=== PATIENT | female | born 1945 | race Caucasian/White ===

== ENCOUNTER 2025-01-05 16:50 | Inpatient (IN) | payer MEDICARE ==
[~2025-01-05] VITALS: Ht 162.6 cm; Wt 78.3 kg
--- NOTE | 2025-01-05 18:33 | DVH ---
Bilateral lower extremity venous duplex Clinical History: numbness/tingling swelling Comparison: None Findings: Duplex Doppler evaluation of the deep venous systems of both lower extremities from the common femora l veins to the popliteal veins including color Doppler and spectral/pulsed waveform analysis was perf ormed. RIGHT SIDE: The common femoral vein demonstrates appropriate compressibility and waveform variability. There is compressibility/patency of the great saphenous vein at the proximal thigh. The femoral vein demonstrates appropriate compressibility and waveform variability. The deep femoral vein demonstrates appropriate compressibility and waveform variability. The popliteal vein demonstrates appropriate compressibility and waveform variability. There is normal compressibility at the tibioperoneal trunk. LEFT SIDE: The common femoral vein demonstrates appropriate compressibility and waveform variability. There is compressibility/patency of the great saphenous vein at the proximal thigh. The femoral vein demonstrates appropriate compressibility and waveform variability. The deep femoral vein demonstrates appropriate compressibility and waveform variability. The popliteal vein demonstrates appropriate compressibility and waveform variability. There is normal compressibility at the tibioperoneal trunk. IMPRESSION: 1. No right or left femoropopliteal venous thrombosis. 2. If clinical concern/symptoms persist or worsen, short-interval follow-up study is suggested. 3. END IMPRESSION:
[2025-01-05 18:35] LABS: Basophils # (auto) 0 10 ^3/uL (0-0.2); Basophils % (auto) 1.3 % (0.0-2.0); Eosinophils # (auto) 0.4 10 ^3/uL (0-0.8); Eosinophils % (auto) 14.2 % (0.0-7.0); Hematocrit 36.1 % (36.0-46.0); Hemoglobin 12.2 g/dL (12.2-16.2); Lymphocytes # (auto) 1.2 10 ^3/uL (0.4-5.4); Lymphocytes % (auto) 42.3 % (10.0-50.0); Mean Corpuscular Hemoglobin 31.9 pg (28.0-32.0); Mean Corpuscular Hgb Conc. 33.7 g/dL (32.0-36.0); Mean Corpuscular Volume 94.7 fL (80.0-100.0); Monocytes # (auto) 0.4 10 ^3/uL (0-1.3); Monocytes % (auto) 14.2 % (0.0-12.0); Neutrophils # (auto) 0.8 10 ^3/uL (1.6-8.6); Nucleated Red Blood Cells % 0.1 %; Platelet Count (auto) 254 10^3/uL (140-450); Red Blood Cells 3.81 10^6/uL (4.0-5.20); Red Cell Distribution Width 14.4 % (11.8-14.3); White Blood Cell 2.9 10^3/uL (4.4-10.8)
--- NOTE | 2025-01-05 18:47 | ED.PDOC ---
Musculoskeletal HPI Comments HPI: 79y F who presents to the ED for chief complaint of extremity pain. - pt states she has been having bilateral lower extremity pain and numbness for the past 1 month - pt states she had MRI of spine on 10/16/24 and states she was dx with spinal fracture -pt states she has been seeing pain specialist and states he has received pain shot in spine 2 weeks prior with noted another pain shot in extremities - pt states she also had slip and fall on L knee 1 week prior and since, she has been having increasing pain when attempting to ambulate with associated numbness - pt states she came to the ED due to increasing pain despite pain management recommendations and medications prescribed - pt rates her pain 04/26, with noted exacerbation of pain while ambulating and no relieving factors - pt otherwise denies any other symptoms at this time Past Medical history: spine fracture Past Surgical history: R leg Medications: unknown Allergies: denies Social History: endorses ETOH, denies tobacco use, denies drug use : HPI: Poor Historian. REVIEW OF SYSTEMS: CONSTITUTIONAL: Denies acute: fever, diaphoresis, chills, generalized weakness. HEAD: Denies acute: headache, photophobia Eyes: Denies acute: Double vision, vision loss, eye pain, eye discharge. EARS: Denies acute: tinnitus, hearing loss, ear discharge, ear pain, THROAT: Denies acute: sore throat, swelling, difficulty swallowing , pain with swallowing, change in voice. NECK: Denies acute: neck pain, neck swelling, stiff neck. HEART: Denies acute : chest pain, palpitations, LUNGS: Denies acute: SOB, wheezing, cough, hemoptysis ABDOMEN: Denies acute: abdominal pain, Nausea, Vomiting, diarrhea, melena , hematemesis, hematochezia SKIN: Denies acute: rash, redness, lesions, itchiness. EXTREMITIES: Denies acute: calf pain, , , weakness, denies pain in extremity. Neuro: Denies acute: focal neurological deficit, motor or sensory focal neurological deficit, tremors, seizure like activity, confusion, dizziness, change in mental status, loss of bowel or bladder function, cauda equina like symptoms. : Denies acute: dysuria, hematuria, flank pain, increase in urinary frequency. PSYCH: Denies acute: hallucination, suicidal ideation, homicidal ideation. FEMALE: Denies acute: abnormal vaginal bleeding, foul odor, unusual discharge. PHYSICAL EXAM: General: ----no----acute distress, awake and alert. Head: normocephalic, atraumatic. Neck: supple, trachea is midline, no swelling. Throat: Normal phonation. Eyes:, no erythema, no purulent discharge, no proptosis, no icterus. Heart: regular rate, regular rhythm, no significant murmur appreciated. Lungs: no apparent respiratory distress, Able to speak in full sentences. No wheezing, no rhonchi, no crackles. No stridors Clear to auscultation bilaterally. Abdomen: non tender to palpation, non distended, soft, no guarding, no rebound, + bowel sounds. Neuro: Awake, Alert, oriented to name, self, situation, follows commands GCS=15. Speech is normal. Skin: no petechia, no purpura, no cyanosis, non-pale, not jaundice. Lower extremities: --trace bilateral- Pitting edema no deformity, no focal swelling, no calf TTP. Makes eye contact. moves all four extremities. Face: no apparent facial droop. Pedal pulses are palpable. ED COURSE: Chief Complaint: Lower Extremity Time Seen by MD: 18:30 Primary Care Provider: DAVID Reviewed Notes: Medications, Allergies Allergies: Coded Allergies: NO KNOWN ALLERGIES (Unverified , 01/05/25) Information Source: Patient, Relative Mode of Arrival: Wheelchair Was a procedure done? Was a procedure done?: No Differential Diagnosis EXT Differential Diagnosis: Other Other Differential Diagnosis DDX included but not limited to Cauda Equina syndrome, lumbar radiculopathy, arthritis, disk herniation, sciatica, muscle strain, epidural abscess, transverse myelitis. Cord compression, spinal foraminal stenosis, spinal fractures, spondylosis, central canal stenosis, trauma, muscle sprain/strain, shingles, arthritis, Gu[place], neoplasm. X-Ray, Labs, Meds, VS Vital Signs Date Time Temp Pulse Resp B/P (MAP) Pulse Ox O2 Delivery O2 Flow Rate FiO2 01/05/25 17:17 97.0 85 17 129/55 (79) 96 97.0 Lab Test 01/05/25 18:56 01/05/25 18:00 Range/Units Troponin I High Sensitivity < 3 L < 3 L </=34 ng/L White Blood Count 2.9 L 4.4-10.8 10^3/uL Red Blood Count 3.81 L 4.0-5.20 10^6/uL Hemoglobin 12.2 12.2-16.2 g/dL Hematocrit 36.1 36.0-46.0 % Mean Corpuscular Volume 94.7 80.0-100.0 fL Mean Corpuscular Hemoglobin 31.9 28.0-32.0 pg Mean Corpuscular Hemoglobin Concent 33.7 32.0-36.0 g/dL Red Cell Distribution Width 14.4 H 11.8-14.3 % Platelet Count 254 140-450 10^3/uL Mean Platelet Volume 7.7 6.9-10.8 fL Neutrophils (%) (Auto) 28.0 L 37.0-80.0 % Lymphocytes (%) (Auto) 42.3 10.0-50.0 % Monocytes (%) (Auto) 14.2 H 0.0-12.0 % Eosinophils (%) (Auto) 14.2 H 0.0-7.0 % Basophils (%) (Auto) 1.3 0.0-2.0 % Neutrophils # (Auto) 0.8 L 1.6-8.6 10 ^3/uL Lymphocytes # (Auto) 1.2 0.4-5.4 10 ^3/uL Monocytes # (Auto) 0.4 0-1.3 10 ^3/uL Eosinophils # (Auto) 0.4 0-0.8 10 ^3/uL Basophils # (Auto) 0 0-0.2 10 ^3/uL Nucleated Red Blood Cells 0.1 % Sodium Level 139 136-145 mmol/L Potassium Level 4.1 3.5-5.1 mmol/L Chloride Level 102 98-107 mmol/L Carbon Dioxide Level 26 20-31 mmol/L Anion Gap 11 5-15 Blood Urea Nitrogen 10 9-23 mg/dL Creatinine 0.66 0.550-1.02 mg/dL Glomerular Filtration Rate Calc 88 >90 mL/min BUN/Creatinine Ratio 15.2 10.0-20.0 Serum Glucose 85 74-106 mg/dL Calcium Level 9.8 8.7-10.4 mg/dL Magnesium Level 2.2 1.6-2.6 mg/dL Total Bilirubin 0.6 0.2-1.0 mg/dL Aspartate Amino Transferase (AST) 9 L 13-40 U/L Alanine Aminotransferase (ALT) 11 7-40 U/L Alkaline Phosphatase 83 46-116 U/L B-Type Natriuretic Peptide 37.90 0-100 pg/mL Total Protein 6.3 5.7-8.2 g/dL Albumin 4.3 3.2-4.8 g/dL [place] [id number] Ph: [phone] DIAGNOSTIC IMAGING Diagnostic Imaging Report : [id number] Signed PATIENT: YISSEL JEFFCCT: [id number] UNIT: [id number] : 1945 LOC: ER ROOM / BED: / AGE / SEX: 79 / F ADM STATUS: REG ER SERVICE [id number] ORDERING PHYSICIAN: MOHIT LY DO PROCEDURE(s): BLDVT - BiLat Lower DVT REASON: numbness/tingling swelling ORDER NUMBER(s): [id number], ACCESSION NUMBER(s): [id number] Bilateral lower extremity venous duplex Clinical History: numbness/tingling swelling Comparison: None Findings: Duplex Doppler evaluation of the deep venous systems of both lower extremities from the common femoral veins to the popliteal veins including color Doppler and spectral/pulsed waveform analysis was performed. RIGHT SIDE: The common femoral vein demonstrates appropriate compressibility and waveform variability. There is compressibility/patency of the great saphenous vein at the proximal thigh. The femoral vein demonstrates appropriate compressibility and waveform variability. The deep femoral vein demonstrates appropriate compressibility and waveform variability. The popliteal vein demonstrates appropriate compressibility and waveform variability. There is normal compressibility at the tibioperoneal trunk. LEFT SIDE: The common femoral vein demonstrates appropriate compressibility and waveform variability. There is compressibility/patency of the great saphenous vein at the proximal thigh. The femoral vein demonstrates appropriate compressibility and waveform variability. The deep femoral vein demonstrates appropriate compressibility and waveform variability. The popliteal vein demonstrates appropriate compressibility and waveform variability. There is normal compressibility at the tibioperoneal trunk. IMPRESSION: 1. No right or left femoropopliteal venous thrombosis. 2. If clinical concern/symptoms persist or worsen, short-interval follow-up study is suggested. 3. END IMPRESSION: ATED BY: ASHTYN GUTHRIE MD DICTATED DATE/TIME: 01/05/251830 SIGNED BY: ASHTYN GUTHRIE MD SIGNED DATE/TIME: 01/05/251830 CC: [place] [address] Ph: [phone] DIAGNOSTIC IMAGING Diagnostic Imaging Report : [id number] Signed PATIENT: YISSEL JEFFCCT: [id number] UNIT: [id number] : 1945 LOC: ER ROOM / BED: / AGE / SEX: 79 / F ADM STATUS: REG ER SERVICE 58 ORDERING PHYSICIAN: MOHIT LY DO PROCEDURE(s): LS2CT - LS SPINE WO CONTRAST REASON: pain, fall ORDER NUMBER(s): [id number], ACCESSION NUMBER(s): [id number] EXAM: CT LS SPINE WO CONTRAST INDICATION: pain, fall TECHNIQUE: Axial images of the lumbar spine have been obtained along with coronal and sagittal reformatted images. CT scans at this facility use dose modulation, iterative reconstruction, and/or weight based dosing when appropriate to reduce radiation dose to as low as reasonably achievable. COMPARISON: None FINDINGS: ANATOMY: Five lumbar-type vertebral bodies are present. The most inferior well- formed disc space will be referred to as L5-S1 for purposes of numbering in this report. VERTEBRAL BODIES: Near vertebra plana anterior to centrally with slight 4 mm posterior superior endplate retropulsion of T12 liking contributing to at least mild spinal canal narrowing at this level. Opposing endplate degenerative change centered at L3-4. SPINAL CANAL: No spinal canal narrowing. INTERVERTEBRAL DISCS: Small posterior disc osteophyte complex at L3-4 /circumferential disc bulge with bilateral inferior foraminal extension. Suspected severe left L3-4 foraminal narrowing with posterior disc osteophyte complex in the left lateral recess FACETS: Multilevel mild to moderate facet arthropathy. OTHER: Large sliding hiatal hernia. trace left perinephric edema. IMPRESSION: 1. Near vertebra plana anterior to centrally with slight 4 mm posterior superior endplate retropulsion of T12 liking contributing to at least mild spinal canal narrowing at this level. 2. If neurological symptoms, recommend MRI. 3. No CT evidence of an acute fracture. ATED BY: CHOLO BARRON MD DICTATED DATE/TIME: 01/05/251951 SIGNED BY: CHOLO BARRON MD SIGNED DATE/TIME: 01/05/251951 CC: Time of 1ST Reevaluation: 20:25 (Discussed with Dr. Mack who sent the patient to the ER for further evaluation. He recommends admission to the hospital service for possible MRI in the morning and possible spine consultation.) Reevaluation 1ST: Unchanged Patient Education/Counseling: Diagnosis, Treatment Family Education/Counseling: Diagnosis, Treatment Comments Patient presented with the above HPI.---bilateral leg numbness tingling---workup was initiated. patient was found with the above mentioned diagnosis. the following medications were ordered: please refer to order lists of meds and tests obtained by myself Dr. Ly. Patient ED course and VS have been stabilized. Patient has been reassessed in the ED and remained in a stable condition. Pertinent incidental findings were discussed with the patient and/or family. Patient/family voices understanding and is agreeable with plan. Patient has been observed in the ED adequate length of time to insure improvement/stability. Escalation of care considered: Consideration of escalation to observation or admission Case discussed with Dr. Mack. Patient was ADMITTED to the medicine team for further evaluation and treatment of their presentation. All the reports of any imaging studies that were ordered by myself were reviewed by myself. Departure 1 Departure Time of Disposition: 20:26 Impression: Primary Impression: Bilateral leg numbness Additional Impression: Spinal stenosis Disposition: ADMITTED INPATIENT Admit to: Tele Condition: Guarded Discharged With: Self Critical Care Note Critical Care Time?: No I personally scribed for MOHIT LY DO ([email or web address]) on 01/05/25 at 18:47. Electronically submitted by Alka Wick ([facility]). I personally scribed for MOHIT LY DO ([email or web address]) on 01/05/25 at 19:06. Electronically submitted by [facility]ka Wick ([facility] I personally scribed for MOHIT LY DO ([facility]) on 01/05/25 at 20:32. Electronically submitted by Alka Wick ([facility]). MOHIT LY DO January 05, 2025 18:47
[2025-01-05 18:52] LABS: Alanine Aminotransferase 11 U/L (7-40); Albumin 4.3 g/dL (3.2-4.8); Alkaline Phosphatase 83 U/L (46-116); Anion Gap 11 (5-15); BUN/Creatinine Ratio 15.2 (10.0-20.0); Blood Urea Nitrogen 10 mg/dL (9-23); Calcium 9.8 mg/dL (8.7-10.4); Carbon Dioxide 26 mmol/L (20-31); Chloride 102 mmol/L (98-107); Glucose 85 mg/dL (74-106); Magnesium 2.2 mg/dL (1.6-2.6); Potassium 4.1 mmol/L (3.5-5.1); Sodium 139 mmol/L (136-145); Total Protein 6.3 g/dL (5.7-8.2)
[2025-01-05 18:53] LABS: Bilirubin, Total 0.6 mg/dL (0.2-1.0)
[2025-01-05 18:56] LABS: Aspartate Aminotransferase 9 U/L (13-40)
--- NOTE | 2025-01-05 19:54 | DVH ---
EXAM: CT LS SPINE WO CONTRAST INDICATION: pain, fall TECHNIQUE: Axial images of the lumbar spine have been obtained along with coronal and sagittal reform atted images. CT scans at this facility use dose modulation, iterative reconstruction, and/or weight based dosing when appropriate to reduce radiation dose to as low as reasonably achievable. COMPARISON: None FINDINGS: ANATOMY: Five lumbar-type vertebral bodies are present. The most inferior well-formed disc space will be referred to as L5-S1 for purposes of numbering in this report. VERTEBRAL BODIES: Near vertebra plana anterior to centrally with slight 4 mm posterior superior endpl ate retropulsion of T12 liking contributing to at least mild spinal canal narrowing at this level. Op posing endplate degenerative change centered at L3-4. SPINAL CANAL: No spinal canal narrowing. INTERVERTEBRAL DISCS: Small posterior disc osteophyte complex at L3-4 /circumferential disc bulge wit h bilateral inferior foraminal extension. Suspected severe left L3-4 foraminal narrowing with posteri or disc osteophyte complex in the left lateral recess FACETS: Multilevel mild to moderate facet arthropathy. OTHER: Large sliding hiatal hernia. trace left perinephric edema. IMPRESSION: 1. Near vertebra plana anterior to centrally with slight 4 mm posterior superior endplate retropulsio n of T12 liking contributing to at least mild spinal canal narrowing at this level. 2. If neurological symptoms, recommend MRI. 3. No CT evidence of an acute fracture.
[2025-01-05] MEDS ORDERED: HYDROcodone-ACET 5/325MG TAB PO PRN (21:30)
[2025-01-05] MEDS ORDERED: ACETAMINOPHEN 325 MG TAB PO PRN (21:30)
[2025-01-05] MEDS ORDERED: MORPHINE SULFATE INJ 2 MG/ml SYRG IV PRN (21:30)
[2025-01-05] MEDS: DexAMETHasone SOD PHOS 10MG/1ML VIAL INJ IV ONE (22:42)
[2025-01-05 22:52] VITALS: BP 128/70; PULSE 56; RESP 16; TEMP 97; O2SAT 98
[2025-01-05 23:13] VITALS: RESP 16; O2SAT 90
[2025-01-06] VITALS (7 sets, daily range): BP systolic 119–138; BP diastolic 55–78; PULSE 58–79; RESP 16–18; TEMP 96.9–99; O2SAT 97–98
[2025-01-06 04:32] LABS: Hematocrit 38.7 % (36.0-46.0); Hemoglobin 12.8 g/dL (12.2-16.2); Mean Corpuscular Hemoglobin 31.4 pg (28.0-32.0); Mean Corpuscular Hgb Conc. 32.9 g/dL (32.0-36.0); Mean Corpuscular Volume 95.4 fL (80.0-100.0); Platelet Count (auto) 232 10^3/uL (140-450); Red Blood Cells 4.06 10^6/uL (4.0-5.20); Red Cell Distribution Width 14.5 % (11.8-14.3)
[2025-01-06 04:40] LABS: Albumin 4.4 g/dL (3.2-4.8); Alkaline Phosphatase 81 U/L (46-116); Anion Gap 8 (5-15); BUN/Creatinine Ratio 11.1 (10.0-20.0); Bilirubin, Total 0.7 mg/dL (0.2-1.0); Calcium 9.3 mg/dL (8.7-10.4); Carbon Dioxide 26 mmol/L (20-31); Chloride 106 mmol/L (98-107); Potassium 4.1 mmol/L (3.5-5.1); Sodium 140 mmol/L (136-145); Total Protein 6.8 g/dL (5.7-8.2)
[2025-01-06 04:42] LABS: Alanine Aminotransferase < 9 U/L (7-40); Blood Urea Nitrogen 7 mg/dL (9-23); Glucose 140 mg/dL (74-106)
[2025-01-06 04:43] LABS: Aspartate Aminotransferase < 8 U/L (13-40)
[2025-01-06 04:47] LABS: INR 1.08 (0.9-1.15); Partial Thromboplastin Time 28.5 SEC (24.5-34.5); Prothrombin Time 11.4 sec (9.3-11.8)
[2025-01-06 04:51] LABS: White Blood Cell 1.8 10^3/uL (4.4-10.8)
[2025-01-06 04:54] LABS: Band Neutrophils % (manual) 0; Basophils % (manual) 0 (0.0-2.0); Blast Cells 0; Eosinophils % (manual) 0 (0-7); Metamyelocytes % 0; Myelocytes % 0; Promyelocytes % 0; Reactive Lymphocytes 0
--- NOTE | 2025-01-06 05:16 | DVHHP2 ---
History of Present Illness History of Present Illness 79-year-old female with a past medical history of hyperlipidemia and prior spinal trauma presents with progressive bilateral lower extremity weakness, numbness, tingling, and exacerbation of lower back pain. The patient reports a fall in 2003, following which she was told she had a spinal fracture, but she is unclear on the details. She underwent an MRI on October 2024, which reportedly confirmed this fracture. Since then, she has followed up with her PCP and pain specialist, who recommended possible disc infiltrations but no surgical intervention at that time. One week ago, the patient had another fall onto her knees. Since then, she reports worsening weakness, with the inability to stand without her legs "giving out." Over the past 2 days, this weakness has progressed to the point where she cannot ambulate at all. She also reports bilateral leg numbness and tingling, as well as worsening lower back pain, especially when attempting to walk. Additionally, she reports bilateral leg swelling for the past several days She has a remote history of right leg surgery, though she is unsure of the exact procedure. PAST MEDICAL HISTORY: Hyperlipidemia Spinal fracture (2003) PAST SURGICAL HISTORY: Right leg surgery MEDICATIONS: atorvastatin, oxybutynin ALLERGIES: NKDA Review of Systems Review of Systems REVIEW OF SYSTEMS: Constitutional: No fever or chills reported Neurologic: Positive for bilateral leg weakness, numbness, and tingling Musculoskeletal: Positive for back pain and recent fall Cardiovascular: Reports new onset bilateral lower extremity swelling GI/: Negative Respiratory: Negative Allergies: Coded Allergies: NO KNOWN ALLERGIES (Unverified , 01/05/25) Medications Current Medications Medications Dose Ordered Sig/Wendy Route Start Time Stop Time Status Last Admin Dose Admin Acetaminophen 650 mg Q6HP PRN PO 01/05/25 21:30 Acetaminophen/ Hydrocodone Bitart 1 tab Q4HP PRN PO 01/05/25 21:30 Morphine Sulfate 2 mg Q4HPRN PRN IV 01/05/25 21:30 Enoxaparin Sodium 40 mg DAILY SC 01/06/25 10:00 Prednisone 60 mg DAILY PO 01/06/25 10:00 Exam Vital Signs Vital Signs Date Time Temp Pulse Resp B/P (MAP) Pulse Ox O2 Delivery O2 Flow Rate FiO2 01/06/25 01:00 98.0 58 16 133/55 (81) 98 98.0 01/05/25 23:13 Room Air* 0 21 Exam PHYSICAL EXAM: General: Elderly female, alert and oriented, in mild distress due to pain. HEENT: Normocephalic, atraumatic. Neck: Supple, no lymphadenopathy. Lungs: Clear to auscultation bilaterally. Cardiovascular: Regular rate and rhythm. No murmur, gallop, or rub. 12+ pitting edema in bilateral lower extremities. Abdomen: Soft, nontender, nondistended. Extremities: No gross deformities. Bilateral 12+ pitting edema in lower extremi ties. Neurological: Motor: Strength in bilateral lower extremities 2/5 Reflexes: Symmetric and preserved Sensation: Decreased sensation to light touch along L4-L5 dermatomes bilaterally Gait: Unable to ambulate due to leg weakness No saddle anesthesia reported. No bowel or bladder incontinence noted. Labs/Xrays Labs Test 01/06/25 04:08 01/05/25 18:56 01/05/25 18:00 Range/Units Sodium Level 140 136-145 mmol/L Potassium Level 4.1 3.5-5.1 mmol/L Chloride Level 106 98-107 mmol/L Carbon Dioxide Level 26 20-31 mmol/L Anion Gap 8 5-15 Blood Urea Nitrogen 7 L 9-23 mg/dL Creatinine 0.63 0.550-1.02 mg/dL Glomerular Filtration Rate Calc 89 >90 mL/min BUN/Creatinine Ratio 11.1 10.0-20.0 Serum Glucose 140 H 74-106 mg/dL Hemoglobin A1c 5.0 <5.7 % A1C Calcium Level 9.3 8.7-10.4 mg/dL Total Bilirubin 0.7 0.2-1.0 mg/dL Aspartate Amino Transferase (AST) < 8 L 13-40 U/L Alanine Aminotransferase (ALT) < 9 7-40 U/L Alkaline Phosphatase 81 46-116 U/L Total Protein 6.8 5.7-8.2 g/dL Albumin 4.4 3.2-4.8 g/dL Troponin I High Sensitivity < 3 L </=34 ng/L Eosinophils (%) (Auto) 14.2 H 0.0-7.0 % Eosinophils # (Auto) 0.4 0-0.8 10 ^3/uL Basophils # (Auto) 0 0-0.2 10 ^3/uL Nucleated Red Blood Cells 0.1 % Magnesium Level 2.2 1.6-2.6 mg/dL B-Type Natriuretic Peptide 37.90 0-100 pg/mL Assessment/Plan Assessment/Plan #Mild spinal canal narrowing at T12 #Small posterior disc osteophyte complex at L3-4 #circumferential disc bulge with bilateral inferior foraminal extension l3 l4. #Suspected severe left L3-4 foraminal narrowing with posterior disc osteophyte complex in the left lateral recess #Sp mechanical fall #DVT ruled out #Dyslipidemia #Leukopenia Admit NPO Med/surg Spine surgery consult Lumbar MRI Dexamethasone 6 mg IV daily Lovenox 40 mg SC Possible preop labs and images Case discussed with Dr Holder Full code Plan discussed with: Patient, Other My Orders Orders - CECIL VALENTE RESIDENT Procedure Category Date Status Time Admit ADMIT 01/05/25 Transmitted 21:21 Code Status CODE 01/05/25 Transmitted 21:21 Vital Signs RAHEL 01/05/25 In Process 21:21 Review Orders With RAHEL 01/05/25 In Process Adm. 21:21 Regular Diet DIET 01/06/25 Transmitted Breakfast Acetaminophen Tablet PHA 01/05/25 In Process (Tylenol Tablet) 21:30 Notify Of Changes RAHEL 01/05/25 In Process From Base 21:21 Advance Directive RAHEL 01/05/25 In Process 21:21 Chest Two Views XY 01/06/25 Logged Routine 04:00 Echo 2d Mode Cardiac US 01/05/25 Logged DOP 21:21 Patient Condition ORDERS 01/05/25 Transmitted 21:21 Allergies RAHEL 01/05/25 In Process 21:21 Hydrocodone-Acet PHA 01/05/25 In Process 5/325mg Tab ([place] 21:30 Morphine Sulfate PHA 01/05/25 In Process Injection 21:30 Enoxaparin Sodium PHA 01/06/25 In Process (Lovenox) 10:[address] Uriel CONS 01/05/25 Transmitted [place](Spine) 21:21 Npo (Nothing By DIET 01/06/25 Transmitted Mouth) Diet Breakfast Lumbar With Contrast MRI 01/05/25 Logged 21:25 Prednisone Tablet PHA 01/06/25 In Process 10:00 Lumbar Spine Wo MRI 01/05/25 Logged Contrast 22:37 Drug Screen LAB 01/06/25 Logged 00:43 Urinalysis LAB 01/07/25 Verified 04:00 Complete Blood Count LAB 01/06/25 In Process 03:45 Thyroid Stimulating LAB 01/06/25 In Process Hormone 03:45 PTPTT LAB 01/06/25 In Process 03:45 Date of Service: January 05, 2025 Billing Provider: ESSIE HOLDER MD Common Visit Codes: 84953-EMSOFBW INP/OBS CARE (HIGH) Secondary Visit Codes: 44212-[id number] CARE PLAN 30 MINUTES CECIL VALENTE RESIDENT January 06, 2025 05:16
[2025-01-06 06:32] LABS: Lymphocytes % (manual) 13 (10.0-50.0); Monocytes % (manual) 2 (0-12); Platelet Estimate Adequate
--- NOTE | 2025-01-06 08:48 | DVH ---
EXAM: XY CHEST PORTABLE Indication: pain Technique: Single frontal view of the chest was obtained Comparison: None FINDINGS: Lines and Tubes: None Lungs: No focal consolidation. Pleura: No effusion. No pneumothorax. Cardiomediastinal contours: Unremarkable Bones: No acute osseous abnormality. IMPRESSION: No acute cardiopulmonary disease.
[2025-01-06] MEDS: ENOXAPARIN SOD 40 MG/0.4 ML SYRINGE SC SCH (09:17)
[2025-01-06] MEDS: DexAMETHasone SOD PHOS 10MG/1ML VIAL INJ IV SCH (09:17)
[2025-01-06 09:41] LABS: Urine Bacteria None Seen /hpf (None Seen)
[2025-01-06 09:55] LABS: Urine Blood Negative /uL (Negative); Urine Clarity Clear (Clear); Urine Color Light-Yellow (Yellow); Urine Protein, UAD Negative (Negative); Urine Specific Gravity 1.014 (1.001-1.035); Urine Squamous Epithelial Cell FEW /hpf (<5); Urine Urobilinogen Normal (Negative); Urine WBC < 1 /HPF (0-5)
[2025-01-06] MEDS ORDERED: predniSONE 20 MG TAB PO SCH (10:00)
[2025-01-06 10:11] LABS: Amphetamine Screen, Urine Neg (NEGATIVE); Barbiturate Scree,Urine Neg (NEGATIVE); Benzodiazephine Screen, Urine Neg (NEGATIVE); Cannabinoid Screen, Urine Neg (NEGATIVE); Cocaine Screen, Urine Neg (NEGATIVE); Opiate Scree,Urine Neg (NEGATIVE); Phencyclidine Screen, Urine Neg (NEGATIVE)
--- NOTE | 2025-01-06 11:09 | DVH ---
EXAM: MRI LUMBAR SPINE WO CONTRAST HISTORY: spinal stenosis wo contrast COMPARISON: CT scan dated 01/05/2025 TECHNIQUE: MRI was performed utilizing multiple appropriate imaging planes and pulse sequences. FINDINGS: For the purposes of this report, the last square-shaped vertebra is considered L5. Prior to any surg madisyn, correlation with lumbar spine radiographs should be done. VERTEBRAE: The lumbar vertebrae are normal in height . 3 mm degenerative grade 1 anterolisthesis of L3 on L4 without pars defect noted. Severe anterior compression deformity of T12 with complete loss o f height anteriorly 5.4 mm retropulsion without significant an underlying bone marrow edema reflectin g chronic injury. A 2.1 cm T2 hyperintense, IR hyperintense and PD hypointense lesion noted in the L3 vertebral body with the signal characteristics not typical of hemangioma. Several IR hypointense, T2 and T1 hyperintense lesions are seen measuring up to 1.5 cm in the right upper posterior L4 verteb ral body subcentimeter in L2 and L4 vertebral bodies that are also indeterminate. No suspicious lesi on is seen. SPINAL CORD: Terminates at the L1-L2 level. No evidence of cord edema or myelomalacia within the pa rtially visualized conus medullaris. PARASPINAL SOFT TISSUES: Unremarkable. INTERVERTEBRAL DISCS: T12-L1: No disc herniation, central canal stenosis or neural foramina narrowing. The posterior facet s and ligamentum flavum are unremarkable. L1-L2: 2-3 mm degenerative grade 1 anterolisthesis without pars defects, mild broad-based posterior d isc bulge, eccentric to the right measuring up to 4.5 mm in the right paracentral region, mild bilate ral posterior facet and ligamentum flavum hypertrophy with mild central canal stenosis, and abutment of the right emerging nerve roots. L2-L3: Mild broad-based posterior disc bulge, mild bilateral posterior facet and ligamenta flava hyp ertrophy with resultant mild central canal stenosis and mild bilateral neural foramina stenosis abutt ing the bilateral emerging nerve roots. L3-L4: 3 mm degenerative grade 1 anterolisthesis without pars defects, moderate reduction disc heig ht, mild broad-based posterior disc bulge, bilateral posterior facet and ligamentum flavum hypertroph y with resultant mild central canal stenosis, severe left and mild right neural foramina stenosis imp ingement of the left exiting L3 nerve and abutment of the bilateral emerging nerve roots. L4-L5: Mild broad-based posterior disc bulge, mild bilateral posterior facet and ligamenta flava hy pertrophy with resultant mild central canal stenosis and mild bilateral neural foramina stenosis with out definite nerve impingement. L5-S1: Minimal broad-based posterior disc bulge, moderate bilateral Posterior facets arthropathy and mild ligamentum flavum hypertrophy mild bilateral neural foramina stenosis and abutment of the right emerging S1 nerve roots and right exiting L5 nerve. OTHER: None. IMPRESSION: Severe compression deformity of T12 with complete loss of height centrally anteriorly with 5.4 mm ret ropulsion indenting ventral distal thoracic cord without evidence of cord edema or myelomalacia at th is time. Multiple indeterminate lumbar spine bone lesions measuring up to 2.1 cm. This should be further eval uated with MRI with IV contrast and/or 3-phase bone scan to rule out primary or metastatic malignancy . Also correlate with history of known malignancy. Mild rightward curvature of the lumbar spine, mild multilevel degenerative spondylolisthesis, multile abhishek degenerative disc disease and posterior facet arthropathy with evidence of nerve impingement thro ughout the lumbar spine. L1-L2: 2-3 mm degenerative grade 1 anterolisthesis without pars defects, mild broad-based posterior d isc bulge, eccentric to the right measuring up to 4.5 mm in the right paracentral region, mild bilate ral posterior facet and ligamentum flavum hypertrophy with mild central canal stenosis, and abutment of the right emerging nerve roots. L2-L3: Mild broad-based posterior disc bulge, mild bilateral posterior facet and ligamenta flava hyp ertrophy with resultant mild central canal stenosis and mild bilateral neural foramina stenosis abutt ing the bilateral emerging nerve roots. L3-L4: 3 mm degenerative grade 1 anterolisthesis without pars defects, moderate reduction disc heig ht, mild broad-based posterior disc bulge, bilateral posterior facet and ligamentum flavum hypertroph y with resultant mild central canal stenosis, severe left and mild right neural foramina stenosis imp ingement of the left exiting L3 nerve and abutment of the bilateral emerging nerve roots. L4-L5: Mild broad-based posterior disc bulge, mild bilateral posterior facet and ligamenta flava hy pertrophy with resultant mild central canal stenosis and mild bilateral neural foramina stenosis with out definite nerve impingement. L5-S1: Minimal broad-based posterior disc bulge, moderate bilateral Posterior facets arthropathy and mild ligamentum flavum hypertrophy mild bilateral neural foramina stenosis and abutment of the right emerging S1 nerve roots and right exiting L5 nerve.
--- NOTE | 2025-01-06 13:22 | DVHINCON2 ---
Consultation - Spinal Surgery Date Seen: January 06, 2025 Referring Physician Referring Physician Attending Doctor: Concha Stringer Resident Reason for Consultation Back pain after fall History of Present Illness History of Present Illness History of Present Illness 79-year-old female with a past medical history of hyperlipidemia and prior spinal trauma presents with progressive bilateral lower extremity weakness, numbness, tingling, and exacerbation of lower back pain. The patient reports a fall in 2003, following which she was told she had a spinal fracture, but she is unclear on the details. She underwent an MRI on October 2024, which reportedly confirmed this fracture. Since then, she has followed up with her PCP and pain specialist, who recommended possible disc infiltrations but no surgical intervention at that time. One week ago, the patient had another fall onto her knees. Since then, she reports worsening weakness, with the inability to stand without her legs "giving out." Over the past 2 days, this weakness has progressed to the point where she cannot ambulate at all. She also reports bilateral leg numbness and tingling, as well as worsening lower back pain, especially when attempting to walk. Additionally, she reports bilateral leg swelling for the past several days She has a remote history of right leg surgery, though she is unsure of the exact procedure. Spine surgery H and P Patient reports that she had a right knee replacement, she also had a right femur fracture after a fall She also reports that she was told she needs a left knee replacement Patient has been seen by Dr. Paris for pain management has had one injection however she is not sure which type to her back at her fracture site in the past. Past Medical/Surgical History Past Medical/Surgical History PAST MEDICAL HISTORY: Hyperlipidemia Spinal fracture (2003) PAST SURGICAL HISTORY: Right leg surgery Family and Social History Family and Social History Noncontributory in this case Allergies and medications Allergies: Coded Allergies: NO KNOWN ALLERGIES (Unverified , 01/05/25) Review of systems Review of Systems: HEENT:Normal, CVS:Normal, RESPIRATORY:Normal, GI:Normal, :Normal, MSK:Normal, NEURO:Abnormal (Patient complains of radicular symptoms from her feet up to her knees to her) Examination Vital signs Imaging: . EXAM: MRI LUMBAR SPINE WO CONTRAST HISTORY: spinal stenosis wo contrast COMPARISON: CT scan dated 01/05/2025 TECHNIQUE: MRI was performed utilizing multiple appropriate imaging planes and pulse sequences. FINDINGS: For the purposes of this report, the last square-shaped vertebra is considered L5. Prior to any surgery, correlation with lumbar spine radiographs should be done. VERTEBRAE: The lumbar vertebrae are normal in height . 3 mm degenerative grade 1 anterolisthesis of L3 on L4 without pars defect noted. Severe anterior compression deformity of T12 with complete loss of height anteriorly 5.4 mm re tropulsion without significant an underlying bone marrow edema reflecting chronic injury. A 2.1 cm T2 hyperintense, IR hyperintense and PD hypointense lesion noted in the L3 vertebral body with the signal characteristics not typical of hemangioma. Several IR hypointense, T2 and T1 hyperintense lesions are seen measuring up to 1.5 cm in the right upper posterior L4 vertebral body subcentimeter in L2 and L4 vertebral bodies that are also indeterminate. No suspicious lesion is seen. SPINAL CORD: Terminates at the L1-L2 level. No evidence of cord edema or myelomalacia within the partially visualized conus medullaris. PARASPINAL SOFT TISSUES: Unremarkable. INTERVERTEBRAL DISCS: T12-L1: No disc herniation, central canal stenosis or neural foramina narrowing. The posterior facets and ligamentum flavum are unremarkable. L1-L2: 2-3 mm degenerative grade 1 anterolisthesis without pars defects, mild broad-based posterior disc bulge, eccentric to the right measuring up to 4.5 mm in the right paracentral region, mild bilateral posterior facet and ligamentum flavum hypertrophy with mild central canal stenosis, and abutment of the right e merging nerve roots. L2-L3: Mild broad-based posterior disc bulge, mild bilateral posterior facet and ligamenta flava hypertrophy with resultant mild central canal stenosis and mild bilateral neural foramina stenosis abutting the bilateral emerging nerve roots. L3-L4: 3 mm degenerative grade 1 anterolisthesis without pars defects, moderate reduction disc height, mild broad-based posterior disc bulge, bilateral posterior facet and ligamentum flavum hypertrophy with resultant mild central canal stenosis, severe left and mild right neural foramina stenosis impingement of the left exiting L3 nerve and abutment of the bilateral emerging nerve roots. L4-L5: Mild broad-based posterior disc bulge, mild bilateral posterior facet and ligamenta flava hypertrophy with resultant mild central canal stenosis and mild bilateral neural foramina stenosis without definite nerve impingement. L5-S1: Minimal broad-based posterior disc bulge, moderate bilateral Posterior facets arthropathy and mild ligamentum flavum hypertrophy mild bilateral neural foramina stenosis and abutment of the right emerging S1 nerve roots and right exiting L5 nerve. OTHER: None. IMPRESSION: Severe compression deformity of T12 with complete loss of height centrally anteriorly with 5.4 mm retropulsion indenting ventral distal thoracic cord without evidence of cord edema or myelomalacia at this time. Multiple indeterminate lumbar spine bone lesions measuring up to 2.1 cm. This should be further evaluated with MRI with IV contrast and/or 3-phase bone scan to rule out primary or metastatic malignancy. Also correlate with history of known malignancy. Mild rightward curvature of the lumbar spine, mild multilevel degenerative spondylolisthesis, multilevel degenerative disc disease and posterior facet arthropathy with evidence of nerve impingement throughout the lumbar spine. L1-L2: 2-3 mm degenerative grade 1 anterolisthesis without pars defects, mild broad-based posterior disc bulge, eccentric to the right measuring up to 4.5 mm in the right paracentral region, mild bilateral posterior facet and ligamentum flavum hypertrophy with mild central canal stenosis, and abutment of the right emerging nerve roots. L2-L3: Mild broad-based posterior disc bulge, mild bilateral posterior facet and ligamenta flava hypertrophy with resultant mild central canal stenosis and mild bilateral neural foramina stenosis abutting the bilateral emerging nerve roots. L3-L4: 3 mm degenerative grade 1 anterolisthesis without pars defects, moderate reduction disc height, mild broad-based posterior disc bulge, bilateral posterior facet and ligamentum flavum hypertrophy with resultant mild central c anal stenosis, severe left and mild right neural foramina stenosis impingement of the left exiting L3 nerve and abutment of the bilateral emerging nerve roots. L4-L5: Mild broad-based posterior disc bulge, mild bilateral posterior facet and ligamenta flava hypertrophy with resultant mild central canal stenosis and mild bilateral neural foramina stenosis without definite nerve impingement. L5-S1: Minimal broad-based posterior disc bulge, moderate bilateral Posterior facets arthropathy and mild ligamentum flavum hypertrophy mild bilateral neural foramina stenosis and abutment of the right emerging S1 nerve roots and right exiting L5 nerve. Vital Signs Date Time Temp Pulse Resp B/P (MAP) Pulse Ox O2 Delivery O2 Flow Rate FiO2 01/06/25 09:00 96.9 72 18 135/70 (91) 98 96.9 01/06/25 08:10 Room Air* 0 21 Medications Current Medications Medications (Trade) Dose Ordered Sig/Wendy Route PRN Reason Start Time Stop Time Status Last Admin Acetaminophen (Tylenol Tablet) 650 mg Q6HP PRN PO PAIN SCALE 1-3 OR TEMP>100.4 01/05/25 21:30 Acetaminophen/ Hydrocodone Bitart ([place] 5/325MG Tab) 1 tab Q4HP PRN PO MODERATE PAIN (4-6 PAIN SCALE) 01/05/25 21:30 Morphine Sulfate 2 mg Q4HPRN PRN IV SEVERE PAIN (7-10 PAIN SCALE) 01/05/25 21:30 Enoxaparin Sodium (Lovenox) 40 mg DAILY SC 01/06/25 10:00 01/06/25 09:17 Prednisone 60 mg DAILY PO 01/06/25 10:00 01/06/25 05:07 DC Dexamethasone Sodium Phosphate (Decadron Injection) 6 mg DAILY IV 01/06/25 10:00 01/06/25 09:17 Laboratory Labs Test 01/06/25 09:31 01/06/25 04:08 01/05/25 18:56 01/05/25 18:00 Range/Units Urine Color Light-yellow Yellow Urine Clarity Clear Clear Urine pH 7.0 5.0-9.0 Urine Specific [place] 1.014 1.001-1.035 Urine Protein Negative Negative Urine Ketones 1+ H Negative Urine Blood Negative Negative /uL Urine Nitrite Negative Negative Urine Bilirubin Negative Negative Urine Urobilinogen Normal Negative mg/dL Urine Leukocyte Esterase Negative Negative /uL Urine RBC <1 0 - 4 /hpf Urine Microscopic WBC < 1 0-5 /HPF Urine Squamous Epithelial Cells Few <5 /hpf Urine Bacteria None seen None Seen /hpf Urine Glucose Normal Normal mg/dL Urine Opiates Screen Neg NEGATIVE Urine Fentanyl Screen Neg NEGATIVE Urine Barbiturates Screen Neg NEGATIVE Urine Phencyclidine Screen Neg NEGATIVE Urine Amphetamines Screen Neg NEGATIVE Urine Benzodiazepines Screen Neg NEGATIVE Urine Cocaine Screen Neg NEGATIVE Urine Cannabinoids Screen Neg NEGATIVE White Blood Count 1.8 #*L 4.4-10.8 10^3/uL Red Blood Count 4.06 4.0-5.20 10^6/uL Hemoglobin 12.8 12.2-16.2 g/dL Hematocrit 38.7 36.0-46.0 % Mean Corpuscular Volume 95.4 80.0-100.0 fL Mean Corpuscular Hemoglobin 31.4 28.0-32.0 pg Mean Corpuscular Hemoglobin Concent 32.9 32.0-36.0 g/dL Red Cell Distribution Width 14.5 H 11.8-14.3 % Platelet Count 232 140-450 10^3/uL Mean Platelet Volume 7.5 6.9-10.8 fL Neutrophils (%) (Auto) 37.0-80.0 % Lymphocytes (%) (Auto) 10.0-50.0 % Monocytes (%) (Auto) 0.0-12.0 % Basophils (%) (Auto) 0.0-2.0 % Neutrophils # (Auto) 1.6-8.6 10 ^3/uL Lymphocytes # (Auto) 0.4-5.4 10 ^3/uL Monocytes # (Auto) 0-1.3 10 ^3/uL Differential Total Cells Counted 100.0 100 Neutrophils % (Manual) 85 H 37.0-80.0 Band Neutrophils % (Manual) 0 Lymphocytes % (Manual) 13 10.0-50.0 Monocytes % (Manual) 2 0-12 Eosinophils % (Manual) 0 0-7 Basophils % (Manual) 0 0.0-2.0 Metamyelocytes % (manual) 0 Myelocytes % (Manual) 0 Promyelocytes % (Manual) 0 Blast Cells % (Manual) 0 Reactive Lymphocytes 0 Platelet Estimate Adequate Prothrombin Time 11.4 9.3-11.8 sec Prothrombin Time INR 1.08 0.9-1.15 Activated Partial Thromboplast Time 28.5 24.5-34.5 SEC Sodium Level 140 136-145 mmol/L Potassium Level 4.1 3.5-5.1 mmol/L Chloride Level 106 98-107 mmol/L Carbon Dioxide Level 26 20-31 mmol/L Anion Gap 8 5-15 Blood Urea Nitrogen 7 L 9-23 mg/dL Creatinine 0.63 0.550-1.02 mg/dL Glomerular Filtration Rate Calc 89 >90 mL/min BUN/Creatinine Ratio 11.1 10.0-20.0 Serum Glucose 140 H 74-106 mg/dL Hemoglobin A1c 5.0 <5.7 % A1C Calcium Level 9.3 8.7-10.4 mg/dL Total Bilirubin 0.7 0.2-1.0 mg/dL Aspartate Amino Transferase (AST) < 8 L 13-40 U/L Alanine Aminotransferase (ALT) < 9 7-40 U/L Alkaline Phosphatase 81 46-116 U/L Total Protein 6.8 5.7-8.2 g/dL Albumin 4.4 3.2-4.8 g/dL Thyroid Stimulating Hormone (TSH) 1.01 0.55-4.78 uIU/mL Troponin I High Sensitivity < 3 L </=34 ng/L Eosinophils (%) (Auto) 14.2 H 0.0-7.0 % Eosinophils # (Auto) 0.4 0-0.8 10 ^3/uL Basophils # (Auto) 0 0-0.2 10 ^3/uL Nucleated Red Blood Cells 0.1 % Magnesium Level 2.2 1.6-2.6 mg/dL B-Type Natriuretic Peptide 37.90 0-100 pg/mL Examination: GENERAL:Normal, HEENT:Normal, NECK:Normal, LUNGS:Normal, CVS:Normal, ABDOMEN:Normal, MSK:Normal, SKIN:Normal, NEURO:Abnormal (Patient has strong extremities 5/5 x4, patient complains of radicular symptoms from the bottoms of her feet up to her knees. 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 with leg pain without axial back pain (4) Retrolisthesis of vertebrae (5) Bilateral leg numbness Assessment and Plan T12, L1 chronic fractures L2 herniated disc, retrolisthesis L2 on 3 with no pars defect, multilevel lumbar degenerative disc disease We will obtain an MRI without contrast cervical rule out any cervical stenosis- further spine surgery recommendations once the study is complete Recommendation for investigation of Multiple indeterminate lumbar spine bone lesions Patient would benefit from a outpatient EMG of bilateral lower extremities with neurologist Recommend orthopedic consult regarding left knee pain, patient states that that is the knee that gave out with her last fall she was also told she needs a knee replacement Continue supportive measures per admitting team's discretion Physical therapy evaluation recommendations and discharge recommendations Recommend muscle relaxers for any muscle spasms the patient is having Call with questions Simeon Padilla [facility] Orthopaedic Spine Surgery nurse practitioner For Dr Dilcia Lee Patient was examined, chart reviewed, labs evaluated, and diagnostic studies and findings analyzed. Case was discussed with Dr. Uriel Lee who formulated the plan of care. This medical document was created using an electronic medical record system with [employer] dictation system. Although this document has been carefully reviewed, there might still be some phonetic and typographical errors. These areas are purely typographical due to imperfections of the software programs, and do not reflect any compromise in the patient's medical care. Plan discussed with Plan discussed with: Patient, Other (akash MANTILLA x [phone]) JOHN PADILLA INSPECTING ENGINEER January 06, 2025 13:22
--- NOTE | 2025-01-06 14:39 | DVHPNRES ---
Progress Note Date Seen: January 06, 2025 Resident Creating Document: ELIZABETH HDZ RESIDENT Medical Necessity Reason Pt with a Central, PICC or Fol: No Subjective Review of Systems This is a 79-year-old female with a past medical history of hyperlipidemia and prior spinal trauma presents with progressive bilateral lower extremity weakness, numbness, tingling, and exacerbation of lower back pain. The patient reports a fall in 2003, following which she was told she had a spinal fracture, but she is unclear on the details. She underwent an MRI on October 2024, which reportedly confirmed this fracture. Since then, she has followed up with her PCP and pain specialist, who recommended possible disc infiltrations but no surgical intervention at that time. One week ago, the patient had another fall onto her knees. Since then, she reports worsening weakness, with the inability to stand without her legs "giving out." Over the past 2 days, this weakness has progressed to the point where she cannot ambulate at all. She also reports bilateral leg numbness and tingling, as well as worsening lower back pain, especially when attempting to walk. Additionally, she reports bilateral leg swelling for the past several days. She has a remote history of right leg surgery, though she is unsure of the exact procedure. She denies weakness, perianal numbness, fecal and urinary incontinence, fever, chills, positive sick contact or any recent traveling. Constitutional: No: Fever, Chills, Sweats, Weakness, Malaise, Other Eyes: No: Pain, Vision change, Conjunctivae inflammation, Eyelid inflammation, Other, Redness ENT: No: Ear pain, Ear discharge, Nose pain, Nose discharge, Nose congestion, Mouth pain, Mouth swelling, Throat pain, Throat swelling, Other Respiratory: Shortness of breath, improving No: Cough, Dry,Wheezing, Hemoptysis, Pleuritic Pain, Sputum, Wheezing, Other Cardiovascular: No: Chest Pain, Palpitations, Orthopnea, Paroxysmal Noc. Dyspnea, Edema, Lt Headedness, Other Gastrointestinal: No: Nausea, Vomiting, Abdominal Pain, Diarrhea, Constipation, Melena, Hematochezia, Other Musculoskeletal: Leg swelling, No: other, neck pain, shoulder pain, arm pain, back pain, hand pain, leg pain, foot pain Neurological:; Tingling and numbness, No: Weakness, Numbness, Incoordination, Change in speech, Confusion, Seizures Objective vital signs Vital Sign Date Time Temp Pulse Resp B/P (MAP) Pulse Ox O2 Delivery O2 Flow Rate FiO2 01/06/25 09:00 96.9 72 18 135/70 (91) 98 96.9 01/06/25 08:10 Room Air* 0 21 Total Intake and Output 01/05/25 01/05/25 01/06/25 15:00 23:00 07:00 Intake Total 0 ml Balance 0 ml medications Current Medications Medications Dose Ordered Sig/Wendy Route Start Time Stop Time Status Last Admin Dose Admin Acetaminophen 650 mg Q6HP PRN PO 01/05/25 21:30 Acetaminophen/ Hydrocodone Bitart 1 tab Q4HP PRN PO 01/05/25 21:30 Morphine Sulfate 2 mg Q4HPRN PRN IV 01/05/25 21:30 Enoxaparin Sodium 40 mg DAILY SC 01/06/25 10:00 01/06/25 09:17 40 MG Dexamethasone Sodium Phosphate 6 mg DAILY IV 01/06/25 10:00 01/06/25 09:17 6 MG Examination Physical examination: General Appearance: Alert, Oriented X3, Cooperative, No acute distress HEENT: Atraumatic, PERRLA, EOMI, Mucous membrane moist/pink Respiratory: Clear to auscultation, Normal air movement Cardiovascular: Regular rate, Normal S1, Normal S2, No murmurs, no chest wall tenderness Abdominal: Normal bowel sounds, Soft, No tenderness, No hepatospenomegaly, No masses Extremities: Edema +, No clubbing, No cyanosis, Normal pulses, No tenderness/swelling Skin: No rashes, No breakdown, No significant lesion Neuro:, Normal speech, Strength at 5/5 X4 ext, Normal tone, Sensation intact, grossly intact cranial nerves. Psych/Mental Status: Mental status NL, Mood NL laboratory and microbiology Laboratory Tests 01/06/25 04:08 Test 01/06/25 04:08 Range/Units Serum Glucose 140 H 74-106 mg/dL Labs and/or images reviewed: Labs reviewed by me, Image(s) reviewed by me Problem List/Assessment/Plan Problem List/Assessment/Plan Assessment and plan #Sp mechanical fall # Possible spinal canal stenosis - CT of L/S showed- Mild spinal canal narrowing at T12, Small posterior disc osteophyte complex at L3-4, circumferential disc bulge with bilateral inferior foraminal extension l3 l4. Suspected severe left L3-4 foraminal narrowing with posterior disc osteophyte complex in the left lateral recess. - MRI of lumbosacral spine revealed Severe compression deformity of T12 with complete loss of height centrally anteriorly with 5.4 mm retropulsion indenting ventral distal thoracic cord without evidence of cord edema or myelomalacia at this time. Multiple indeterminate lumbar spine bone lesions measuring up to 2.1 cm. This should be further evaluated with MRI with IV contrast and/or 3-phase bone scan to rule out primary or metastatic malignancy. L1 to S1 Minimal broad- based posterior disc bulge, moderate bilateral Posterior facets arthropathy and mild ligamentum flavum hypertrophy mild bilateral neural foramina stenosis - Spinal surgery on board - Decadron 6 mg IV daily - [place] 5/325 mg for Q4 PRN - Morphine 2 mg IV q.4 PRN - Physical therapy # DVT prophylaxis - Doppler scan of the lower limb excluded DVT - Lovenox 40 mg sc daily Goal of care discussed with the patient for more than 20 minutes full code Plan discussed with Dr. Carter Plan discussed with: Patient, Other ELIZABETH HDZ RESIDENT January 06, 2025 14:39
--- NOTE | 2025-01-06 18:00 | DVH ---
EXAM: MRI CERVICAL WO CONTRAST HISTORY: concern for cervical stenosis COMPARISON: None TECHNIQUE: MRI was performed utilizing multiple appropriate imaging planes and pulse sequences. FINDINGS: CRANIOCERVICAL JUNCTION: The atlanto-dens interval is within normal limits. There is no evidence for significant cerebellar tonsillar ectopia. BONES: Vertebral body heights are preserved. No acute compression deformities are present. No discre te marrow infiltrative lesion is seen. SPINAL CORD: Long segment segment abnormal increased PD and T2 cord signal in the bilateral posterior paramedian regions involving fasciculus gracilis and fasciculus cuneatus extending from C2 to T1 lev el. No cord expansion noted. PARASPINAL SOFT TISSUES: Unremarkable. INTERVERTEBRAL DISCS: C2-C3: Mild reduction in disc height with irregularity of the endplates, mild broad-based posterior d isc-osteophyte complex, moderate bilateral posterior facet hypertrophy uncovertebral arthropathy with mild central canal stenosis, mild right and moderate left neural foramina stenosis with impingement of the left exiting nerve. C3-C4: 4 mm broad-based posterior disc bulge, mild bilateral posterior facet and uncovertebral hypert rophy with resultant mild central canal stenosis , severe left and moderate right neural foramina josephine nosis with impingement of the bilateral exiting nerves. C4-C5: Mild reduction in disc height, 3 mm broad-based posterior disc bulge, mild right and severe le ft posterior facet arthropathy mild left uncovertebral hypertrophy with resultant mild central canal stenosis, mild right and severe left neural foraminal stenosis with impingement of the left exiting n erve. C5-C6: Mild reduction in disc height, irregularity of the adjacent endplates with Modic type 2 discog enic endplate changes , moderate bilateral posterior facet, uncovertebral and ligamentum flavum hyper trophy right uncovertebral hypertrophy with resultant mild central canal stenosis and severe bilatera l neural foramina stenosis with impingement of the bilateral exiting nerves. C6-C7: 2 mm degenerative grade 1 anterolisthesis, mild broad-based posterior disc bulge, modic type 2 discogenic endplate changes, mild bilateral posterior facet and ligamenta flava hypertrophy moderate right uncovertebral hypertrophy with resultant severe right and moderate left central canal stenosis and mild neural foramina stenosis with impingement of the bilateral exiting nerves. C7-T1: 3 mm degenerative grade 1 anterolisthesis, mild broad-based posterior disc bulge bilateral pos terior facet arthropathy with resultant mild central canal stenosis, mild right and moderate left diann ral foraminal stenosis with impingement of the left exiting nerve. IMPRESSION: Long segment posterior cord signal involving the bilateral fasciculus gracilis and fasciculus cuneatu s from C2 to T1 levels suggestive of transverse myelitis. The differential diagnosis includes other demyelination disorders. No cord expansion/edema noted. Straightening of normal lordosis, multilevel degenerative disc disease, uncovertebral and posterior f acet arthropathy with evidence of nerve impingement throughout the cervical spine. C2-C3: Mild reduction in disc height with irregularity of the endplates, mild broad-based posterior d isc-osteophyte complex, moderate bilateral posterior facet hypertrophy uncovertebral arthropathy with mild central canal stenosis, mild right and moderate left neural foramina stenosis with impingement of the left exiting nerve. C3-C4: 4 mm broad-based posterior disc bulge, mild bilateral posterior facet and uncovertebral hypert rophy with resultant mild central canal stenosis , severe left and moderate right neural foramina josephine nosis with impingement of the bilateral exiting nerves. C4-C5: Mild reduction in disc height, 3 mm broad-based posterior disc bulge, mild right and severe le ft posterior facet arthropathy mild left uncovertebral hypertrophy with resultant mild central canal stenosis, mild right and severe left neural foraminal stenosis with impingement of the left exiting n erve. C5-C6: Mild reduction in disc height, irregularity of the adjacent endplates with Modic type 2 discog enic endplate changes , moderate bilateral posterior facet, uncovertebral and ligamentum flavum hyper trophy right uncovertebral hypertrophy with resultant mild central canal stenosis and severe bilatera l neural foramina stenosis with impingement of the bilateral exiting nerves. C6-C7: 2 mm degenerative grade 1 anterolisthesis, mild broad-based posterior disc bulge, modic type 2 discogenic endplate changes, mild bilateral posterior facet and ligamenta flava hypertrophy moderate right uncovertebral hypertrophy with resultant severe right and moderate left central canal stenosis and mild neural foramina stenosis with impingement of the bilateral exiting nerves. C7-T1: 3 mm degenerative grade 1 anterolisthesis, mild broad-based posterior disc bulge bilateral pos terior facet arthropathy with resultant mild central canal stenosis, mild right and moderate left diann ral foraminal stenosis with impingement of the left exiting nerve.
[2025-01-07] VITALS (8 sets, daily range): BP systolic 116–136; BP diastolic 51–70; PULSE 55–66; RESP 16–19; TEMP 97.1–98.4; O2SAT 96–100
--- NOTE | 2025-01-07 01:03 | DVHSR ---
APPROVED REPORT EXAM: Two-dimensional and M-mode echocardiogram with Doppler and color Doppler. Blood Pressure: 124/62 mmHg INDICATION Pre-Op RISK FACTORS Height: 5'4", Weight: 163 DIMENSIONS LVDd5.3 (3.8-5.7cm)LA (2D)4.4 (1.9-4.0cm)Aortic Root2.9 (2.0-3.7cm) LVDs2.8 (2.5-4.0cm)LA (MM) (1.9-4.0cm)Aortic Cusp Exc1.7 (1.5-2.0cm) EF (%) 78.0 (55-70%)Rt. Atrium4.2 (1.9-4.0cm)Asc. Aorta3.0 cm IVSd0.8 (0.7-1.1cm)RV (D)4.1 (1.8-2.4cm) PWd0.8 (0.7-1.1cm) Mitral Valve MitralMitral Stenosis E wave0.79m/sMV Mean GR.mmHg A wave0.90m/sMV Peak GR.mmHg E/A ratio0.92D MVAcm2 DECEL [id number] 1/2 Timems Aortic Valve Aortic ValveAortic Stenosis V11.38m/Justin Mean GR.6mmHg V21.67m/Justin Peak GR.11mmHg LVOT Diameter1.8 (1.8-2.4cm)Doppler AVA2.10cm2 Pulmonic Valve V21.08m/s Tricuspid Valve TR Velocity2.18m/s [id number] Other Information Quality : Technically LimitedRhythm : Technically limited study due to body habitus. Conclusion MILD LVH AND MILD LV DIASTOLIC DYSFUNCTION LV EF IS 70% MODERATELY DILATED LA MODERATELY DILATED RV MILD MR GROSSLY NORMAL VALVES NO EFFUSION
[2025-01-07 07:15] LABS: Hematocrit 34.9 % (36.0-46.0); Hemoglobin 11.6 g/dL (12.2-16.2); Mean Corpuscular Hemoglobin 31.7 pg (28.0-32.0); Mean Corpuscular Hgb Conc. 33.2 g/dL (32.0-36.0); Mean Corpuscular Volume 95.5 fL (80.0-100.0); Platelet Count (auto) 213 10^3/uL (140-450); Red Blood Cells 3.65 10^6/uL (4.0-5.20); Red Cell Distribution Width 14.4 % (11.8-14.3); White Blood Cell 2.5 10^3/uL (4.4-10.8)
[2025-01-07 07:17] LABS: Band Neutrophils % (manual) 0; Basophils % (manual) 0 (0.0-2.0); Blast Cells 0; Eosinophils % (manual) 0 (0-7); Metamyelocytes % 0; Myelocytes % 0; Promyelocytes % 0; Reactive Lymphocytes 0
[2025-01-07 07:31] LABS: Chloride 106 mmol/L (98-107); Potassium 3.6 mmol/L (3.5-5.1); Sodium 142 mmol/L (136-145)
[2025-01-07 07:32] LABS: Anion Gap 10 (5-15); Carbon Dioxide 26 mmol/L (20-31)
[2025-01-07 07:37] LABS: BUN/Creatinine Ratio 17.9 (10.0-20.0); Blood Urea Nitrogen 12 mg/dL (9-23); Glucose 106 mg/dL (74-106)
[2025-01-07 07:40] LABS: Calcium 5.4 mg/dL (8.7-10.4)
[2025-01-07 08:08] LABS: Lymphocytes % (manual) 34 (10.0-50.0); Monocytes % (manual) 9 (0-12); Platelet Estimate Adequate
--- NOTE | 2025-01-07 16:18 | DVHPN2 ---
Subjective still having some back pain Changes from previous H/P or p: No Changes Objective Vitals Vital Signs Date Time Temp Pulse Resp B/P (MAP) Pulse Ox O2 Delivery O2 Flow Rate FiO2 01/07/25 13:13 97.4 55 16 136/62 (86) 97 97.4 01/07/25 08:00 Room Air* 0 21 Intake/Output Intake and Output 01/07/25 07:00 Intake Total 1180 ml Balance 1180 ml Intake Oral 1180 ml # Voids 4 General Appearance: Alert, Oriented X3 Cardiovascular: Regular rate, Normal S1, Normal S2 Abdomen: Normal bowel sounds Medications Current Medications Medications Dose Ordered Sig/Wendy Route Start Time Stop Time Status Last Admin Dose Admin Acetaminophen 650 mg Q6HP PRN PO 01/05/25 21:30 Acetaminophen/ Hydrocodone Bitart 1 tab Q4HP PRN PO 01/05/25 21:30 Morphine Sulfate 2 mg Q4HPRN PRN IV 01/05/25 21:30 Enoxaparin Sodium 40 mg DAILY SC 01/06/25 10:00 01/07/25 09:06 40 MG Dexamethasone Sodium Phosphate 6 mg DAILY IV 01/06/25 10:00 01/07/25 09:06 6 MG Laboratory Results Laboratory Tests 01/07/25 06:40 Chemistry Test 01/07/25 06:40 Calcium Level 5.4 mg/dL (8.7-10.4) #*L Urinalysis Test 01/06/25 09:31 Urine Color Light-yellow (Yellow) Urine Clarity Clear (Clear) Urine pH 7.0 (5.0-9.0) Urine Specific [place] 1.014 (1.001-1.035) Urine Protein Negative (Negative) Urine Ketones 1+ (Negative) H Urine Blood Negative /uL (Negative) Urine Nitrite Negative (Negative) Urine Bilirubin Negative (Negative) Urine Urobilinogen Normal mg/dL (Negative) Urine Leukocyte Esterase Negative /uL (Negative) Urine RBC <1 /hpf (0 - 4) Urine Microscopic WBC < 1 /HPF (0-5) Urine Squamous Epithelial Cells Few /hpf (<5) Urine Bacteria None seen /hpf (None Seen) Urine Glucose Normal mg/dL (Normal) Assessment/Plan Assessment/Plan #Sp mechanical fall # Possible spinal canal stenosis - CT of L/S showed- Mild spinal canal narrowing at T12, Small posterior disc osteophyte complex at L3-4, circumferential disc bulge with bilateral inferior foraminal extension l3 l4. Suspected severe left L3-4 foraminal narrowing with posterior disc osteophyte complex in the left lateral recess. - MRI of lumbosacral spine revealed Severe compression deformity of T12 with complete loss of height centrally anteriorly with 5.4 mm retropulsion indenting ventral distal thoracic cord without evidence of cord edema or myelomalacia at this time. Multiple indeterminate lumbar spine bone lesions measuring up to 2.1 cm. This should be further evaluated with MRI with IV contrast and/or 3-phase bone scan to rule out primary or metastatic malignancy. L1 to S1 Minimal broad- based posterior disc bulge, moderate bilateral Posterior facets arthropathy and mild ligamentum flavum hypertrophy mild bilateral neural foramina stenosis MRI C spine Long segment posterior cord signal involving the bilateral fasciculus gracilis and fasciculus cuneatus from C2 to T1 levels suggestive of transverse myelitis. The differential diagnosis includes other demyelination disorders. No cord expansion/edema noted. - Spinal surgery on board - Decadron 6 mg IV daily - [place] 5/325 mg for Q4 PRN - Morphine 2 mg IV q.4 PRN - Physical therapy - Consult neurology # DVT prophylaxis - Doppler scan of the lower limb excluded DVT - Lovenox 40 mg sc daily Goal of care discussed with the patient for more than 20 minutes full code Plan discussed with: Patient Date of Service: January 07, 2025 Billing Provider: LUI MORRIS MD Common Visit Codes: [id number] INP/OBS CARE(HIGH) LUI MORRIS MD January 07, 2025 16:18
--- NOTE | 2025-01-07 17:46 | DVHPN2 ---
Progress Note - Dictate Date Seen: January 07, 2025 Medical Necessity Reason Pt with a Central, PICC or Fol: No vital signs Vital Sign Date Time Temp Pulse Resp B/P (MAP) Pulse Ox O2 Delivery O2 Flow Rate FiO2 01/07/25 17:00 98.1 63 16 124/68 (86) 100 98.1 01/07/25 08:00 Room Air* 0 21 Total Intake and Output 01/06/25 01/06/25 01/07/25 15:00 23:00 07:00 Intake Total 880 ml 300 ml Balance 880 ml 300 ml medications Current Medications Medications Dose Ordered Sig/Wendy Route Start Time Stop Time Status Last Admin Dose Admin Acetaminophen 650 mg Q6HP PRN PO 01/05/25 21:30 Acetaminophen/ Hydrocodone Bitart 1 tab Q4HP PRN PO 01/05/25 21:30 Morphine Sulfate 2 mg Q4HPRN PRN IV 01/05/25 21:30 Enoxaparin Sodium 40 mg DAILY SC 01/06/25 10:00 01/07/25 09:06 40 MG Dexamethasone Sodium Phosphate 6 mg DAILY IV 01/06/25 10:00 01/07/25 09:06 6 MG laboratory and microbiology Laboratory Tests 01/07/25 06:40 Test 01/07/25 06:40 Range/Units Serum Glucose 106 74-106 mg/dL Assessment/Plan Impression Mechanical fall Compression fracture Atelectasis Pain Patient seen and examined Events Low oxygen requirements On room air No acute events Labs and imaging reviewed Management Supplemental oxygen Titrate to maintain sats 90% or above Incentive spirometry Bronchodilators Monitor renal function Monitor electrolytes Supplement as needed Pain control Avoid oversedation F/u orthopedic surgery Disposition per primary and other specialists DVT prophylaxis Dietary Evaluation Review Recommendations by RD: Dietary education by RD, Protein Supplementation Comments: 1) Initiate Ensure High Protein qd. Encourage optimal PO intake 2) Refer to outpatient RD for weight management 3) Follow-up with orthopedic surgeon, neurology, and physical therapy 4) Continue to monitor I&O, labs, and skin integrity Expected Outcomes/Goals: 1) appetite and labs to improve 2) f/u in 3-5 days Plan discussed with: Patient EVELIN GA MD January 07, 2025 17:46
[2025-01-08 05:00] VITALS: BP 115/44; PULSE 59; RESP 19; TEMP 99; O2SAT 95
[2025-01-08 08:00] VITALS: PULSE 60; RESP 18
[2025-01-08 09:00] VITALS: BP 133/66; PULSE 70; RESP 17; TEMP 97; O2SAT 96
--- NOTE | 2025-01-08 09:40 | DVHPN2 ---
Progress Note - Dictate Date Seen: January 08, 2025 Medical Necessity Reason Pt with a Central, PICC or Fol: No vital signs Vital Sign Date Time Temp Pulse Resp B/P (MAP) Pulse Ox O2 Delivery O2 Flow Rate FiO2 01/08/25 05:00 99.0 59 19 115/44 (67) 95 99.0 01/07/25 20:00 Room Air* 0 21 Total Intake and Output 01/07/25 01/07/25 01/08/25 15:00 23:00 07:00 Intake Total 875 ml 850 ml Balance 875 ml 850 ml medications Current Medications Medications Dose Ordered Sig/Wendy Route Start Time Stop Time Status Last Admin Dose Admin Acetaminophen 650 mg Q6HP PRN PO 01/05/25 21:30 Acetaminophen/ Hydrocodone Bitart 1 tab Q4HP PRN PO 01/05/25 21:30 Morphine Sulfate 2 mg Q4HPRN PRN IV 01/05/25 21:30 Enoxaparin Sodium 40 mg DAILY SC 01/06/25 10:00 01/08/25 08:42 40 MG Dexamethasone Sodium Phosphate 6 mg DAILY IV 01/06/25 10:00 01/08/25 08:42 6 MG laboratory and microbiology Laboratory Tests 01/07/25 06:40 Test 01/07/25 06:40 Range/Units Serum Glucose 106 74-106 mg/dL Assessment/Plan Impression Mechanical fall Compression fracture Atelectasis Pain Patient seen and examined Events Low oxygen requirements On room air No distress Labs and imaging reviewed Management Supplemental oxygen as needed Titrate to maintain sats 90% or above Incentive spirometry Bronchodilators Monitor renal function Monitor electrolytes Supplement as needed Pain control Avoid oversedation F/u orthopedic surgery Disposition per primary and other specialists DVT prophylaxis Dietary Evaluation Review Recommendations by RD: Dietary education by RD, Protein Supplementation Comments: 1) Initiate Ensure High Protein qd. Encourage optimal PO intake 2) Refer to outpatient RD for weight management 3) Follow-up with orthopedic surgeon, neurology, and physical therapy 4) Continue to monitor I&O, labs, and skin integrity Expected Outcomes/Goals: 1) appetite and labs to improve 2) f/u in 3-5 days Plan discussed with: Patient EVELIN GA MD January 08, 2025 09:40
[2025-01-08 13:00] VITALS: BP 127/79; PULSE 66; RESP 17; TEMP 97.6; O2SAT 96
[2025-01-08 17:00] VITALS: BP 121/67; PULSE 87; RESP 17; TEMP 98.3; O2SAT 97
--- NOTE | 2025-01-08 17:21 | DVHPN2 ---
Subjective still having some back pain Changes from previous H/P or p: No Changes Objective Vitals Vital Signs Date Time Temp Pulse Resp B/P (MAP) Pulse Ox O2 Delivery O2 Flow Rate FiO2 01/08/25 13:00 97.6 66 17 127/79 (95) 96 97.6 01/08/25 08:00 Room Air* 0 21 Intake/Output Intake and Output 01/08/25 07:00 Intake Total 1725 ml Balance 1725 ml Intake Oral 1725 ml # Voids 5 General Appearance: Alert, Oriented X3 Cardiovascular: Regular rate, Normal S1, Normal S2 Abdomen: Normal bowel sounds Medications Current Medications Medications Dose Ordered Sig/Wendy Route Start Time Stop Time Status Last Admin Dose Admin Acetaminophen 650 mg Q6HP PRN PO 01/05/25 21:30 Acetaminophen/ Hydrocodone Bitart 1 tab Q4HP PRN PO 01/05/25 21:30 Morphine Sulfate 2 mg Q4HPRN PRN IV 01/05/25 21:30 Enoxaparin Sodium 40 mg DAILY SC 01/06/25 10:00 01/08/25 08:42 40 MG Dexamethasone Sodium Phosphate 6 mg DAILY IV 01/06/25 10:00 01/08/25 08:42 6 MG Laboratory Results Laboratory Tests 01/07/25 06:40 Urinalysis Test 01/06/25 09:31 Urine Color Light-yellow (Yellow) Urine Clarity Clear (Clear) Urine pH 7.0 (5.0-9.0) Urine Specific [place] 1.014 (1.001-1.035) Urine Protein Negative (Negative) Urine Ketones 1+ (Negative) H Urine Blood Negative /uL (Negative) Urine Nitrite Negative (Negative) Urine Bilirubin Negative (Negative) Urine Urobilinogen Normal mg/dL (Negative) Urine Leukocyte Esterase Negative /uL (Negative) Urine RBC <1 /hpf (0 - 4) Urine Microscopic WBC < 1 /HPF (0-5) Urine Squamous Epithelial Cells Few /hpf (<5) Urine Bacteria None seen /hpf (None Seen) Urine Glucose Normal mg/dL (Normal) Assessment/Plan Assessment/Plan #Sp mechanical fall # Possible spinal canal stenosis - CT of L/S showed- Mild spinal canal narrowing at T12, Small posterior disc osteophyte complex at L3-4, circumferential disc bulge with bilateral inferior foraminal extension l3 l4. Suspected severe left L3-4 foraminal narrowing with posterior disc osteophyte complex in the left lateral recess. - MRI of lumbosacral spine revealed Severe compression deformity of T12 with complete loss of height centrally anteriorly with 5.4 mm retropulsion indenting ventral distal thoracic cord without evidence of cord edema or myelomalacia at this time. Multiple indeterminate lumbar spine bone lesions measuring up to 2.1 cm. This should be further evaluated with MRI with IV contrast and/or 3-phase bone scan to rule out primary or metastatic malignancy. L1 to S1 Minimal broad- based posterior disc bulge, moderate bilateral Posterior facets arthropathy and mild ligamentum flavum hypertrophy mild bilateral neural foramina stenosis MRI C spine Long segment posterior cord signal involving the bilateral fasciculus gracilis and fasciculus cuneatus from C2 to T1 levels suggestive of transverse myelitis. The differential diagnosis includes other demyelination disorders. No cord expansion/edema noted. - Spinal surgery on board - Decadron 6 mg IV daily - [place] 5/325 mg for Q4 PRN - Morphine 2 mg IV q.4 PRN - Physical therapy - Consult neurology # DVT prophylaxis - Doppler scan of the lower limb excluded DVT - Lovenox 40 mg sc daily Goal of care discussed with the patient for more than 20 minutes full code Plan discussed with: Patient Date of Service: January 08, 2025 Billing Provider: LUI MORRIS MD Common Visit Codes: [id number] INP/OBS CARE(HIGH) LUI MORRIS MD January 08, 2025 17:21
[2025-01-08 21:00] VITALS: BP 130/52; PULSE 70; RESP 18; TEMP 98.9; O2SAT 96
[2025-01-09 01:00] VITALS: BP 116/57; PULSE 69; RESP 18; TEMP 98.2; O2SAT 95
[2025-01-09 05:00] VITALS: BP 126/51; PULSE 71; RESP 18; TEMP 97; O2SAT 96
[2025-01-09 08:00] VITALS: RESP 18
[2025-01-09] MEDS ORDERED: methylPREDNISolone SOD SUCC 40 MG/ML VL IV SCH (10:00)
[2025-01-09 10:28] LABS: Hematocrit 40.2 % (36.0-46.0); Hemoglobin 13.1 g/dL (12.2-16.2); Mean Corpuscular Hemoglobin 31.1 pg (28.0-32.0); Mean Corpuscular Hgb Conc. 32.5 g/dL (32.0-36.0); Mean Corpuscular Volume 95.8 fL (80.0-100.0); Platelet Count (auto) 309 10^3/uL (140-450); Red Cell Distribution Width 14.3 % (11.8-14.3); White Blood Cell 3.2 10^3/uL (4.4-10.8)
[2025-01-09 10:38] LABS: Anion Gap 10 (5-15); Carbon Dioxide 26 mmol/L (20-31); Chloride 104 mmol/L (98-107); Potassium 3.6 mmol/L (3.5-5.1); Sodium 140 mmol/L (136-145)
[2025-01-09 10:42] LABS: Band Neutrophils % (manual) 0; Basophils % (manual) 0 (0.0-2.0); Blast Cells 0; Eosinophils % (manual) 0 (0-7); Metamyelocytes % 0; Myelocytes % 0; Promyelocytes % 0; Reactive Lymphocytes 0
[2025-01-09 10:44] LABS: BUN/Creatinine Ratio 16.9 (10.0-20.0); Blood Urea Nitrogen 13 mg/dL (9-23)
[2025-01-09 10:51] LABS: Calcium 10.5 mg/dL (8.7-10.4); Glucose 112 mg/dL (74-106)
[2025-01-09] MEDS: PANTOPRAZOLE 40 MG/10 ML VIAL INJ IV SCH (11:05)
[2025-01-09] MEDS: methylPREDNISolone SOD SUCC 1,000 MG VL IV SCH (11:12)
[2025-01-09 11:14] LABS: Lymphocytes % (manual) 45 (10.0-50.0); Monocytes % (manual) 5 (0-12); Platelet Estimate Adequate
[2025-01-09 12:05] LABS: Hepatitis B Core Total AB Negative (Negative)
[2025-01-09 12:44] LABS: Hepatitis A Total Antibody Positive (Negative); Hepatitis B Surface Antibody Negative (Negative); Hepatitis B Surface Antigen Negative (Negative); Hepatitis C Antibody Negative (Negative)
[2025-01-09 13:00] VITALS: BP 131/76; PULSE 80; RESP 16; TEMP 97.9; O2SAT 96
[2025-01-09 17:00] VITALS: BP 132/64; PULSE 77; RESP 16; TEMP 99.3; O2SAT 96
--- NOTE | 2025-01-09 17:50 | DVHPNRES ---
Progress Note Date Seen: January 09, 2025 Resident Creating Document: ELIZABETH HDZ RESIDENT Medical Necessity Reason Pt with a Central, PICC or Fol: No Subjective Review of Systems This is a 79-year-old female with a past medical history of hyperlipidemia and prior spinal trauma presents with progressive bilateral lower extremity weakness, numbness, tingling, and exacerbation of lower back pain. The patient reports a fall in 2003, following which she was told she had a spinal fracture, but she is unclear on the details. She underwent an MRI on October 2024, which reportedly confirmed this fracture. Since then, she has followed up with her PCP and pain specialist, who recommended possible disc infiltrations but no surgical intervention at that time. One week ago, the patient had another fall onto her knees. Since then, she reports worsening weakness, with the inability to stand without her legs "giving out." Over the past 2 days, this weakness has progressed to the point where she cannot ambulate at all. She also reports bilateral leg numbness and tingling, as well as worsening lower back pain, especially when attempting to walk. Additionally, she reports bilateral leg swelling for the past several days. She has a remote history of right leg surgery, though she is unsure of the exact procedure. She denied weakness, perianal numbness, fecal and urinary incontinence, fever, chills, positive sick contact or any recent traveling. Patient was seen and examined at the bedside. She is alert oriented x3. Complained of decreased sensation, tingling and numbness on bilateral legs from below the knee to the ankle and also in the feets. Objective vital signs Vital Sign Date Time Temp Pulse Resp B/P (MAP) Pulse Ox O2 Delivery O2 Flow Rate FiO2 01/09/25 17:00 99.3 77 16 132/64 (86) 96 99.3 01/09/25 08:00 Room Air* 0 21 Total Intake and Output 01/08/25 01/08/25 01/09/25 15:00 23:00 07:00 Intake Total 1460 ml 800 ml Balance 1460 ml 800 ml medications Current Medications Medications Dose Ordered Sig/Wendy Route Start Time Stop Time Status Last Admin Dose Admin Acetaminophen 650 mg Q6HP PRN PO 01/05/25 21:30 Acetaminophen/ Hydrocodone Bitart 1 tab Q4HP PRN PO 01/05/25 21:30 Morphine Sulfate 2 mg Q4HPRN PRN IV 01/05/25 21:30 Enoxaparin Sodium 40 mg DAILY SC 01/06/25 10:00 01/09/25 11:05 40 MG Pantoprazole Sodium 40 mg DAILY IV 01/09/25 10:00 01/09/25 11:05 40 MG Methylprednisolone Sodium Succinate 1,000 mg DAILY IV 01/09/25 10:00 01/09/25 11:12 1,000 MG Examination Physical examination: General Appearance: Alert, Oriented X3, Cooperative, No acute distress HEENT: Atraumatic, PERRLA, EOMI, Mucous membrane moist/pink Respiratory: Clear to auscultation, Normal air movement Cardiovascular: Regular rate, Normal S1, Normal S2, No murmurs, no chest wall tenderness Abdominal: Normal bowel sounds, Soft, No tenderness, No hepatospenomegaly, No masses Extremities: No clubbing, No cyanosis, No edema, Normal pulses, No tenderness/swelling Skin: No rashes, No breakdown, No significant lesion Neuro: Use wheel chair, decreased sensation from below-knee to ankle, perianal sensation is intact, Normal speech, Strength at 4/5 X4 ext, Normal tone, grossly intact cranial nerves. Psych/Mental Status: Mental status NL, Mood NL laboratory and microbiology Laboratory Tests 01/09/25 10:13 Test 01/09/25 10:13 Range/Units Serum Glucose 112 H 74-106 mg/dL Labs and/or images reviewed: Labs reviewed by me, Image(s) reviewed by me Problem List/Assessment/Plan Problem List/Assessment/Plan Assessment and plan #Sp mechanical fall # Possible transverse myelitis of C2 to T1 # Possible spinal canal stenosis - CT of L/S showed- Mild spinal canal narrowing at T12, Small posterior disc osteophyte complex at L3-4, circumferential disc bulge with bilateral inferior foraminal extension l3 l4. Suspected severe left L3-4 foraminal narrowing with posterior disc osteophyte complex in the left lateral recess. - MRI of lumbosacral spine revealed Severe compression deformity of T12 with complete loss of height centrally anteriorly with 5.4 mm retropulsion indenting ventral distal thoracic cord without evidence of cord edema or myelomalacia at this time. Multiple indeterminate lumbar spine bone lesions measuring up to 2.1 cm. This should be further evaluated with MRI with IV contrast and/or 3-phase bone scan to rule out primary or metastatic malignancy. L1 to S1 Minimal broad- based posterior disc bulge, moderate bilateral Posterior facets arthropathy and mild ligamentum flavum hypertrophy mild bilateral neural foramina stenosis - MRI of cervical spine showed Long segment posterior cord signal involving the bilateral fasciculus gracilis and fasciculus cuneatus from C2 to T1 levels suggestive of transverse myelitis. The differential diagnosis includes other demyelination disorders. No cord expansion/edema noted. Straightening of normal lordosis, multilevel degenerative disc disease, uncovertebral and posterior facet arthropathy with evidence of nerve impingement throughout the cervical spine. - Hepatitis panel showed HAV antibody positive, hepatitis-B and C negative and HIV also negative - Pending RASHIDA - Spinal surgery on board - IV methylprednisolone 1000 mg daily. - [place] 5/325 mg for Q4 PRN - Morphine 2 mg IV q.4 PRN - Physical therapy # DVT prophylaxis - Doppler scan of the lower limb excluded DVT - Lovenox 40 mg sc daily # PUD prophylaxis - Protonix 40 mg IV daily. Goal of care discussed with the patient for more than 20 minutes full code Plan discussed with Dr. Carter Plan discussed with: Patient, Other (RN) My Orders My Orders Orders - ELIZABETH HDZ Procedure Category Date Status Time Pantoprazole PHA 01/09/25 In Process (Protonix) 10:00 Rashida; Direct LAB 01/09/25 In Process 08:57 Methylprednisolone PHA 01/09/25 In Process Sod Succ (Solu Medrol 10:00 Dietary Evaluation Review Recommendations by RD: Dietary education by RD, Protein Supplementation Comments: 1) Initiate Ensure High Protein qd. Encourage optimal PO intake 2) Refer to outpatient RD for weight management 3) Follow-up with orthopedic surgeon, neurology, and physical therapy 4) Continue to monitor I&O, labs, and skin integrity Expected Outcomes/Goals: 1) appetite and labs to improve 2) f/u in 3-5 days ELIZABETH HDZ January 09, 2025 17:50
[2025-01-09 21:00] VITALS: BP 128/68; PULSE 78; RESP 16; TEMP 98.5; O2SAT 96
[2025-01-10] VITALS (7 sets, daily range): BP systolic 101–127; BP diastolic 57–71; PULSE 60–78; RESP 16–19; TEMP 97.2–98.9; O2SAT 95–97
--- NOTE | 2025-01-10 10:44 | PRN ---
Misceleneous Note Note Note Spoke to patient regarding the surgical process, she has decided to choose outpatient surgery due to the recent of her last night. plan to have patient make appointment with office to schedule surgery later in February. Patient states she is able to manage with a walker, however she is still having trouble with balance, and the lower extremities. Call [phone] for a appointment [id number] [facility], [facility] [address], [place] [address] Call with questions [facility] Orthopaedic Spine Surgery nurse practitioner For Dr Dilcia Lee Patient was examined, chart reviewed, labs evaluated, and diagnostic studies and findings analyzed. Case was discussed with Dr. Uriel Lee who formulated the plan of care. This medical document was created using an electronic medical record system with [email or web address] dictation system. Although this document has been carefully reviewed, there might still be some phonetic and typographical errors. These areas are purely typographical due to imperfections of the software programs, and do not reflect any compromise in the patient's medical care. JOHN EDMONDSON NP January 10, 2025 10:44
--- NOTE | 2025-01-10 19:06 | DVHPNRES ---
Progress Note Date Seen: January 10, 2025 Resident Creating Document: ELIZABETH HDZ RESIDENT Medical Necessity Reason Pt with a Central, PICC or Fol: No Subjective Review of Systems This is a 79-year-old female with a past medical history of hyperlipidemia and prior spinal trauma presents with progressive bilateral lower extremity weakness, numbness, tingling, and exacerbation of lower back pain. The patient reports a fall in 2003, following which she was told she had a spinal fracture, but she is unclear on the details. She underwent an MRI on October 2024, which reportedly confirmed this fracture. Since then, she has followed up with her PCP and pain specialist, who recommended possible disc infiltrations but no surgical intervention at that time. One week ago, the patient had another fall onto her knees. Since then, she reports worsening weakness, with the inability to stand without her legs "giving out." Over the past 2 days, this weakness has progressed to the point where she cannot ambulate at all. She also reports bilateral leg numbness and tingling, as well as worsening lower back pain, especially when attempting to walk. Additionally, she reports bilateral leg swelling for the past several days. She has a remote history of right leg surgery, though she is unsure of the exact procedure. She denied weakness, perianal numbness, fecal and urinary incontinence, fever, chills, positive sick contact or any recent traveling. Patient was seen and examined at the bedside. She is alert oriented x3. Complained of decreased sensation, tingling and numbness on bilateral legs from below the knee to the ankle and also in the feets. Objective vital signs Vital Sign Date Time Temp Pulse Resp B/P (MAP) Pulse Ox O2 Delivery O2 Flow Rate FiO2 01/10/25 17:30 98.3 78 19 104/64 (77) 95 98.3 01/10/25 08:00 Room Air* 0 21 Total Intake and Output 01/09/25 01/09/25 01/10/25 15:00 23:00 07:00 Intake Total 1425 ml 700 ml Balance 1425 ml 700 ml medications Current Medications Medications Dose Ordered Sig/Wendy Route Start Time Stop Time Status Last Admin Dose Admin Acetaminophen 650 mg Q6HP PRN PO 01/05/25 21:30 Acetaminophen/ Hydrocodone Bitart 1 tab Q4HP PRN PO 01/05/25 21:30 Morphine Sulfate 2 mg Q4HPRN PRN IV 01/05/25 21:30 Enoxaparin Sodium 40 mg DAILY SC 01/06/25 10:00 01/10/25 10:20 40 MG Pantoprazole Sodium 40 mg DAILY IV 01/09/25 10:00 01/10/25 10:19 40 MG Methylprednisolone Sodium Succinate 1,000 mg DAILY IV 01/09/25 10:00 01/10/25 10:19 1,000 MG Examination Physical examination: General Appearance: Alert, Oriented X3, Cooperative, No acute distress HEENT: Atraumatic, PERRLA, EOMI, Mucous membrane moist/pink Respiratory: Clear to auscultation, Normal air movement Cardiovascular: Regular rate, Normal S1, Normal S2, No murmurs, no chest wall tenderness Abdominal: Normal bowel sounds, Soft, No tenderness, No hepatospenomegaly, No masses Extremities: No clubbing, No cyanosis, No edema, Normal pulses, No tenderness/swelling Skin: No rashes, No breakdown, No significant lesion Neuro: Use wheel chair, decreased sensation from below-knee to ankle, perianal sensation is intact, Normal speech, Strength at 4/5 X4 ext, Normal tone, grossly intact cranial nerves. Psych/Mental Status: Mental status NL, Mood NL laboratory and microbiology Laboratory Tests 01/09/25 10:13 Test 01/09/25 10:13 Range/Units Serum Glucose 112 H 74-106 mg/dL Labs and/or images reviewed: Labs reviewed by me, Image(s) reviewed by me Problem List/Assessment/Plan Problem List/Assessment/Plan Assessment and plan #Sp mechanical fall # Possible transverse myelitis of C2 to T1 # Possible spinal canal stenosis - CT of L/S showed- Mild spinal canal narrowing at T12, Small posterior disc osteophyte complex at L3-4, circumferential disc bulge with bilateral inferior foraminal extension l3 l4. Suspected severe left L3-4 foraminal narrowing with posterior disc osteophyte complex in the left lateral recess. - MRI of lumbosacral spine revealed Severe compression deformity of T12 with complete loss of height centrally anteriorly with 5.4 mm retropulsion indenting ventral distal thoracic cord without evidence of cord edema or myelomalacia at this time. Multiple indeterminate lumbar spine bone lesions measuring up to 2.1 cm. This should be further evaluated with MRI with IV contrast and/or 3-phase bone scan to rule out primary or metastatic malignancy. L1 to S1 Minimal broad- based posterior disc bulge, moderate bilateral Posterior facets arthropathy and mild ligamentum flavum hypertrophy mild bilateral neural foramina stenosis - MRI of cervical spine showed Long segment posterior cord signal involving the bilateral fasciculus gracilis and fasciculus cuneatus from C2 to T1 levels suggestive of transverse myelitis. The differential diagnosis includes other demyelination disorders. No cord expansion/edema noted. Straightening of normal lordosis, multilevel degenerative disc disease, uncovertebral and posterior facet arthropathy with evidence of nerve impingement throughout the cervical spine. - Hepatitis panel showed HAV antibody positive, hepatitis-B and C negative and HIV also negative - JEANNETTE negative - Spinal surgery on board - IV methylprednisolone 1000 mg daily. - [place] 5/325 mg for Q4 PRN - Morphine 2 mg IV q.4 PRN - Physical therapy # DVT prophylaxis - Doppler scan of the lower limb excluded DVT - Lovenox 40 mg sc daily # PUD prophylaxis - Protonix 40 mg IV daily. Goal of care discussed with the patient for more than 20 minutes full code Plan discussed with Dr. Chase Plan discussed with: Patient, Other Dietary Evaluation Review Recommendations by RD: Dietary education by RD, Protein Supplementation Comments: 1) Initiate Ensure High Protein qd. Encourage optimal PO intake 2) Refer to outpatient RD for weight management 3) Follow-up with orthopedic surgeon, neurology, and physical therapy 4) Continue to monitor I&O, labs, and skin integrity Expected Outcomes/Goals: 1) appetite and labs to improve 2) f/u in 3-5 days Date of Service: January 10, 2025 Billing Provider: ANDREA CHASE MD Common Visit Codes: [id number] INP/OBS CARE(HIGH) Secondary Visit Codes: 50770-[id number] CARE PLAN 30 MINUTES ELIZABETH HDZ January 10, 2025 19:05 ANDREA CHASE MD January 12, 2025 12:49
[2025-01-11 05:00] VITALS: BP 120/62; PULSE 56; RESP 18; TEMP 98.6; O2SAT 99
[2025-01-11 06:15] LABS: Basophils # (auto) 0 10 ^3/uL (0-0.2); Basophils % (auto) 0.1 % (0.0-2.0); Eosinophils # (auto) 0 10 ^3/uL (0-0.8); Hematocrit 32.3 % (36.0-46.0); Lymphocytes # (auto) 0.3 10 ^3/uL (0.4-5.4); Lymphocytes % (auto) 12.1 % (10.0-50.0); Mean Corpuscular Hemoglobin 32.2 pg (28.0-32.0); Mean Corpuscular Volume 94.6 fL (80.0-100.0); Monocytes # (auto) 0.4 10 ^3/uL (0-1.3); Neutrophils # (auto) 1.9 10 ^3/uL (1.6-8.6); Neutrophils % (auto) 73.8 % (37.0-80.0); Nucleated Red Blood Cells % 0.1 %; Platelet Count (auto) 209 10^3/uL (140-450); Red Blood Cells 3.41 10^6/uL (4.0-5.20); White Blood Cell 2.5 10^3/uL (4.4-10.8)
[2025-01-11 06:32] LABS: Chloride 105 mmol/L (98-107); Potassium 3.9 mmol/L (3.5-5.1); Sodium 139 mmol/L (136-145)
[2025-01-11 06:33] LABS: Anion Gap 9 (5-15); Calcium 8.8 mg/dL (8.7-10.4); Carbon Dioxide 25 mmol/L (20-31)
[2025-01-11 06:38] LABS: Blood Urea Nitrogen 19 mg/dL (9-23)
[2025-01-11 06:48] LABS: Glucose 118 mg/dL (74-106)
[2025-01-11 09:00] VITALS: BP 113/66; PULSE 62; RESP 17; TEMP 97.9; O2SAT 94
[2025-01-11] MEDS: methylPREDNISolone SOD SUCC 1,000 MG in SODIUM CHL 0.9% 250 ML IV SCH (10:29)
[2025-01-11 17:00] VITALS: BP 129/53; PULSE 72; RESP 16; TEMP 98.7; O2SAT 96
--- NOTE | 2025-01-11 19:00 | DVHPNRES ---
Progress Note Date Seen: January 11, 2025 Resident Creating Document: ELIZABETH HDZ RESIDENT Medical Necessity Reason Pt with a Central, PICC or Fol: No Subjective Review of Systems This is a 79-year-old female with a past medical history of hyperlipidemia and prior spinal trauma presents with progressive bilateral lower extremity weakness, numbness, tingling, and exacerbation of lower back pain. The patient reports a fall in 2003, following which she was told she had a spinal fracture, but she is unclear on the details. She underwent an MRI on October 2024, which reportedly confirmed this fracture. Since then, she has followed up with her PCP and pain specialist, who recommended possible disc infiltrations but no surgical intervention at that time. One week ago, the patient had another fall onto her knees. Since then, she reports worsening weakness, with the inability to stand without her legs "giving out." Over the past 2 days, this weakness has progressed to the point where she cannot ambulate at all. She also reports bilateral leg numbness and tingling, as well as worsening lower back pain, especially when attempting to walk. Additionally, she reports bilateral leg swelling for the past several days. She has a remote history of right leg surgery, though she is unsure of the exact procedure. She denied weakness, perianal numbness, fecal and urinary incontinence, fever, chills, positive sick contact or any recent traveling. Patient was seen and examined at the bedside. She is alert oriented x3. Mentioned improvement of decreased sensation, tingling and numbness on bilateral legs from below the knee to the ankle and also in the feets. Objective vital signs Vital Sign Date Time Temp Pulse Resp B/P (MAP) Pulse Ox O2 Delivery O2 Flow Rate FiO2 01/11/25 17:00 98.7 72 16 129/53 (78) 96 98.7 01/11/25 07:40 Room Air* 0 21 Total Intake and Output 01/10/25 01/10/25 01/11/25 15:00 23:00 07:00 Intake Total 1300 ml 400 ml Balance 1300 ml 400 ml medications Current Medications Medications Dose Ordered Sig/Wendy Route Start Time Stop Time Status Last Admin Dose Admin Acetaminophen 650 mg Q6HP PRN PO 01/05/25 21:30 Acetaminophen/ Hydrocodone Bitart 1 tab Q4HP PRN PO 01/05/25 21:30 Morphine Sulfate 2 mg Q4HPRN PRN IV 5/22/25 21:30 Enoxaparin Sodium 40 mg DAILY SC 01/06/25 10:00 01/11/25 10:29 40 MG Pantoprazole Sodium 40 mg DAILY IV 01/09/25 10:00 01/11/25 10:29 40 MG Methylprednisolone Sodium Succinate 1000 mg/Sodium Chloride 250 ml @ 300 mls/hr DAILY IV 01/11/25 10:00 01/11/25 10:29 300 MLS/HR Examination Physical examination: General Appearance: Alert, Oriented X3, Cooperative, No acute distress HEENT: Atraumatic, PERRLA, EOMI, Mucous membrane moist/pink Respiratory: Clear to auscultation, Normal air movement Cardiovascular: Regular rate, Normal S1, Normal S2, No murmurs, no chest wall tenderness Abdominal: Normal bowel sounds, Soft, No tenderness, No hepatospenomegaly, No masses Extremities: No clubbing, No cyanosis, No edema, Normal pulses, No tenderness/swelling Skin: No rashes, No breakdown, No significant lesion Neuro: Use wheel chair, decreased sensation from below-knee to ankle, perianal sensation is intact, Normal speech, Strength at 4/5 X4 ext, Normal tone, grossly intact cranial nerves. 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 Suspected severe left L3-4 foraminal narrowing with posterior disc osteophyte complex in the left lateral recess. - MRI of lumbosacral spine revealed Severe compression deformity of T12 with complete loss of height centrally anteriorly with 5.4 mm retropulsion indenting ventral distal thoracic cord without evidence of cord edema or myelomalacia at this time. Multiple indeterminate lumbar spine bone lesions measuring up to 2.1 cm. This should be further evaluated with MRI with IV contrast and/or 3-phase bone scan to rule out primary or metastatic malignancy. L1 to S1 Minimal broad- based posterior disc bulge, moderate bilateral Posterior facets arthropathy and mild ligamentum flavum hypertrophy mild bilateral neural foramina stenosis - MRI of cervical spine showed Long segment posterior cord signal involving the bilateral fasciculus gracilis and fasciculus cuneatus from C2 to T1 levels suggestive of transverse myelitis. The differential diagnosis includes other demyelination disorders. No cord expansion/edema noted. Straightening of normal lordosis, multilevel degenerative disc disease, uncovertebral and posterior facet arthropathy with evidence of nerve impingement throughout the cervical spine. - Hepatitis panel showed HAV antibody positive, hepatitis-B and C negative and HIV also negative - JEANNETTE negative - TSH, B12 and VitaminD are normal. - Spinal surgery on board - IV methylprednisolone 1000 mg daily. - [place] 5/325 mg for Q4 PRN - Morphine 2 mg IV q.4 PRN - Physical therapy # DVT prophylaxis - Doppler scan of the lower limb excluded DVT - Lovenox 40 mg sc daily # PUD prophylaxis - Protonix 40 mg IV daily. Goal of care discussed with the patient for more than 20 minutes full code Plan discussed with Dr. Chase Plan discussed with: Patient, Other My Orders My Orders Orders - ELIZABETH HDZ Procedure Category Date Status Time Methylprednisolone PHA 01/11/25 In Process Sod Succ (Solu Medrol 10:00 Dietary Evaluation Review Recommendations by RD: Dietary education by RD, Protein Supplementation Comments: 1) Initiate Ensure High Protein qd. Encourage optimal PO intake 2) Refer to outpatient RD for weight management 3) Follow-up with orthopedic surgeon, neurology, and physical therapy 4) Continue to monitor I&O, labs, and skin integrity Expected Outcomes/Goals: 1) appetite and labs to improve 2) f/u in 3-5 days Date of Service: January 11, 2025 Billing Provider: ANDREA CHASE MD Common Visit Codes: [id number] INP/OBS CARE(HIGH) ELIZABETH HDZ January 11, 2025 19:00 ANDREA CHASE MD January 12, 2025 12:50
[2025-01-11 20:00] VITALS: PULSE 78; RESP 18; O2SAT 95
[2025-01-11 21:00] VITALS: BP 123/64; PULSE 71; RESP 18; TEMP 97.8; O2SAT 96
[2025-01-12] VITALS (7 sets, daily range): BP systolic 121–131; BP diastolic 47–72; PULSE 55–70; RESP 16–18; TEMP 97.8–98.7; O2SAT 95–97
--- NOTE | 2025-01-12 19:27 | DVHPNRES ---
Progress Note Date Seen: January 12, 2025 Resident Creating Document: ELIZABETH HDZ RESIDENT Medical Necessity Reason Pt with a Central, PICC or Fol: No Subjective Review of Systems This is a 79-year-old female with a past medical history of hyperlipidemia and prior spinal trauma presents with progressive bilateral lower extremity weakness, numbness, tingling, and exacerbation of lower back pain. The patient reports a fall in 2003, following which she was told she had a spinal fracture, but she is unclear on the details. She underwent an MRI on October 2024, which reportedly confirmed this fracture. Since then, she has followed up with her PCP and pain specialist, who recommended possible disc infiltrations but no surgical intervention at that time. One week ago, the patient had another fall onto her knees. Since then, she reports worsening weakness, with the inability to stand without her legs "giving out." Over the past 2 days, this weakness has progressed to the point where she cannot ambulate at all. She also reports bilateral leg numbness and tingling, as well as worsening lower back pain, especially when attempting to walk. Additionally, she reports bilateral leg swelling for the past several days. She has a remote history of right leg surgery, though she is unsure of the exact procedure. She denied weakness, perianal numbness, fecal and urinary incontinence, fever, chills, positive sick contact or any recent traveling. Patient was seen and examined at the bedside. She is alert oriented x3. Mentioned improvement of decreased sensation, tingling and numbness on bilateral legs from below the knee to the ankle and also in the feet's. Objective vital signs Vital Sign Date Time Temp Pulse Resp B/P (MAP) Pulse Ox O2 Delivery O2 Flow Rate FiO2 01/12/25 17:00 97.8 62 17 127/57 (80) 97 97.8 01/12/25 08:00 Room Air* 0 21 Total Intake and Output 01/11/25 01/11/25 01/12/25 15:00 23:00 07:00 Intake Total 250 ml 975 ml 300 ml Balance 250 ml 975 ml 300 ml medications Current Medications Medications Dose Ordered Sig/Wendy Route Start Time Stop Time Status Last Admin Dose Admin Acetaminophen 650 mg Q6HP PRN PO 01/05/25 21:30 Acetaminophen/ Hydrocodone Bitart 1 tab Q4HP PRN PO 01/05/25 21:30 Morphine Sulfate 2 mg Q4HPRN PRN IV 01/05/25 21:30 Enoxaparin Sodium 40 mg DAILY SC 01/06/25 10:00 01/12/25 09:09 40 MG Pantoprazole Sodium 40 mg DAILY IV 01/09/25 10:00 01/12/25 09:08 40 MG Methylprednisolone Sodium Succinate 1000 mg/Sodium Chloride 250 ml @ 300 mls/hr DAILY IV 01/11/25 10:00 01/12/25 09:08 300 MLS/HR Examination Physical examination: General Appearance: Alert, Oriented X3, Cooperative, No acute distress HEENT: Atraumatic, PERRLA, EOMI, Mucous membrane moist/pink Respiratory: Clear to auscultation, Normal air movement Cardiovascular: Regular rate, Normal S1, Normal S2, No murmurs, no chest wall tenderness Abdominal: Normal bowel sounds, Soft, No tenderness, No hepatosplenomegaly, No masses Extremities: No clubbing, No cyanosis, No edema, Normal pulses, No tenderness/swelling Skin: No rashes, No breakdown, No significant lesion Neuro: Use wheel chair, decreased sensation from below-knee to ankle, perianal sensation is intact, Normal speech, Strength at 4/5 X4 ext, Normal tone, grossly intact cranial nerves. 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 Suspected severe left L3-4 foraminal narrowing with posterior disc osteophyte complex in the left lateral recess. - MRI of lumbosacral spine revealed Severe compression deformity of T12 with complete loss of height centrally anteriorly with 5.4 mm retropulsion indenting ventral distal thoracic cord without evidence of cord edema or myelomalacia at this time. Multiple indeterminate lumbar spine bone lesions measuring up to 2.1 cm. This should be further evaluated with MRI with IV contrast and/or 3-phase bone scan to rule out primary or metastatic malignancy. L1 to S1 Minimal broad- based posterior disc bulge, moderate bilateral Posterior facets arthropathy and mild ligamentum flavum hypertrophy mild bilateral neural foramina stenosis - MRI of cervical spine showed Long segment posterior cord signal involving the bilateral fasciculus gracilis and fasciculus cuneatus from C2 to T1 levels suggestive of transverse myelitis. The differential diagnosis includes other demyelination disorders. No cord expansion/edema noted. Straightening of normal lordosis, multilevel degenerative disc disease, uncovertebral and posterior facet arthropathy with evidence of nerve impingement throughout the cervical spine. - Hepatitis panel showed HAV antibody positive, hepatitis-B and C negative and HIV also negative - JEANNETTE negative - TSH, B12 and VitaminD are normal. - Spinal surgery on board - IV methylprednisolone 1000 mg daily. - [place] 5/325 mg for Q4 PRN - Morphine 2 mg IV q.4 PRN - Physical therapy # DVT prophylaxis - Doppler scan of the lower limb excluded DVT - Lovenox 40 mg sc daily # PUD prophylaxis - Protonix 40 mg IV daily. Goal of care discussed with the patient for more than 20 minutes full code Plan discussed with Dr. Chase Plan discussed with: Patient, Other (RN) Dietary Evaluation Review Recommendations by RD: Dietary education by RD, Protein Supplementation Comments: 1) Initiate Ensure High Protein qd. Encourage optimal PO intake 2) Refer to outpatient RD for weight management 3) Follow-up with orthopedic surgeon, neurology, and physical therapy 4) Continue to monitor I&O, labs, and skin integrity Expected Outcomes/Goals: 1) appetite and labs to improve 2) f/u in 3-5 days Date of Service: January 12, 2025 Billing Provider: ANDREA CHASE MD Common Visit Codes: 47616-[id number] INP/OBS CARE(HIGH) Secondary Visit Codes: 98319-PSRNALVD CARE PLAN 30 MINUTES ELIZABETH HDZ RESIDENT January 12, 2025 19:27 ANDREA CHASE MD Jan 15, 2025 11:35
[2025-01-13 01:00] VITALS: BP 121/70; PULSE 56; RESP 18; TEMP 98.1; O2SAT 97
[2025-01-13 05:00] VITALS: BP 110/61; PULSE 62; RESP 18; TEMP 98.6; O2SAT 97
[2025-01-13 07:47] LABS: Basophils # (auto) 0 10 ^3/uL (0-0.2); Eosinophils # (auto) 0 10 ^3/uL (0-0.8); Hematocrit 35.5 % (36.0-46.0); Lymphocytes # (auto) 0.4 10 ^3/uL (0.4-5.4); Lymphocytes % (auto) 15.9 % (10.0-50.0); Mean Corpuscular Hemoglobin 31.9 pg (28.0-32.0); Mean Corpuscular Hgb Conc. 33.7 g/dL (32.0-36.0); Mean Corpuscular Volume 94.6 fL (80.0-100.0); Monocytes # (auto) 0.4 10 ^3/uL (0-1.3); Monocytes % (auto) 13.7 % (0.0-12.0); Neutrophils # (auto) 1.8 10 ^3/uL (1.6-8.6); Neutrophils % (auto) 70.4 % (37.0-80.0); Nucleated Red Blood Cells % 0.2 %; Platelet Count (auto) 236 10^3/uL (140-450); Red Blood Cells 3.75 10^6/uL (4.0-5.20); Red Cell Distribution Width 14.2 % (11.8-14.3); White Blood Cell 2.6 10^3/uL (4.4-10.8)
[2025-01-13 08:01] LABS: Anion Gap 7 (5-15); Carbon Dioxide 25 mmol/L (20-31); Chloride 107 mmol/L (98-107); Potassium 4.1 mmol/L (3.5-5.1); Sodium 139 mmol/L (136-145)
[2025-01-13 08:02] LABS: Calcium 9.3 mg/dL (8.7-10.4)
[2025-01-13 08:07] LABS: BUN/Creatinine Ratio 26.6 (10.0-20.0); Blood Urea Nitrogen 17 mg/dL (9-23); Glucose 94 mg/dL (74-106)
[2025-01-13 09:00] VITALS: BP 131/66; PULSE 61; RESP 17; TEMP 98.4; O2SAT 97
[2025-01-13] MEDS ORDERED: GABA-1308 PO (10:32)
[2025-01-13 11:22] VITALS: BP 131/66; PULSE 61; RESP 17; TEMP 98.4; O2SAT 97
[2025-01-13 13:00] VITALS: BP 128/70; PULSE 60; RESP 17; TEMP 98.5; O2SAT 96
--- NOTE | 2025-01-13 14:15 | DVHDSRES ---
Discharge Summary Date of Admission Resident Creating Document: ELIZABETH GONZALEZ RESIDENT January 05, 2025 at 21:21 Date of Discharge: January 13, 2025 Admitting Diagnosis # Possible spinal canal stenosis Wounds: No open wound was present Labs/Diagnostic Data: Laboratory Results Test 01/13/25 07:23 01/10/25 16:58 01/09/25 10:13 01/06/25 09:31 White Blood Count 2.6 10^3/uL (4.4-10.8) Red Blood Count 3.75 10^6/uL (4.0-5.20) Hemoglobin 12.0 g/dL (12.2-16.2) Hematocrit 35.5 % (36.0-46.0) Mean Corpuscular Volume 94.6 fL (80.0-100.0) Mean Corpuscular Hemoglobin 31.9 pg (28.0-32.0) Mean Corpuscular Hemoglobin Concent 33.7 g/dL (32.0-36.0) Red Cell Distribution Width 14.2 % (11.8-14.3) Platelet Count 236 10^3/uL (140-450) Mean Platelet Volume 7.9 fL (6.9-10.8) Neutrophils (%) (Auto) 70.4 % (37.0-80.0) Lymphocytes (%) (Auto) 15.9 % (10.0-50.0) Monocytes (%) (Auto) 13.7 % (0.0-12.0) Eosinophils (%) (Auto) 0.0 % (0.0-7.0) Basophils (%) (Auto) 0.0 % (0.0-2.0) Neutrophils # (Auto) 1.8 10 ^3/uL (1.6-8.6) Lymphocytes # (Auto) 0.4 10 ^3/uL (0.4-5.4) Monocytes # (Auto) 0.4 10 ^3/uL (0-1.3) Eosinophils # (Auto) 0 10 ^3/uL (0-0.8) Basophils # (Auto) 0 10 ^3/uL (0-0.2) Nucleated Red Blood Cells 0.2 % Sodium Level 139 mmol/L (136-145) Potassium Level 4.1 mmol/L (3.5-5.1) Chloride Level 107 mmol/L (98-107) Carbon Dioxide Level 25 mmol/L (20-31) Anion Gap 7 (5-15) Blood Urea Nitrogen 17 mg/dL (9-23) Creatinine 0.64 mg/dL (0.550-1.02) Glomerular Filtration Rate Calc 89 mL/min (>90) BUN/Creatinine Ratio 26.6 (10.0-20.0) Serum Glucose 94 mg/dL (74-106) Calcium Level 9.3 mg/dL (8.7-10.4) Vitamin B12 Level 1015 pg/mL (211-911) Vitamin D 25-Hydroxy 35.8 ng/mL (30.0-100) Differential Total Cells Counted 100.0 (100) Neutrophils % (Manual) 50 (37.0-80.0) Band Neutrophils % (Manual) 0 Lymphocytes % (Manual) 45 (10.0-50.0) Monocytes % (Manual) 5 (0-12) Eosinophils % (Manual) 0 (0-7) Basophils % (Manual) 0 (0.0-2.0) Metamyelocytes % (manual) 0 Myelocytes % (Manual) 0 Promyelocytes % (Manual) 0 Blast Cells % (Manual) 0 Reactive Lymphocytes 0 Platelet Estimate Adequate Anti-Nuclear Antibody Screen Negative (Negative) Hepatitis A Antibody Total Positive (Negative) Hepatitis B Surface Antigen Negative (Negative) Hepatitis B Surface Antibody Negative (Negative) Hepatitis B Core Total Antibody Negative (Negative) Hepatitis C Antibody Negative (Negative) HIV (1&2) Antibody Negative (Negative) Urine Color Light-yellow (Yellow) Urine Clarity Clear (Clear) Urine pH 7.0 (5.0-9.0) Urine Specific [place] 1.014 (1.001-1.035) Urine Protein Negative (Negative) Urine Ketones 1+ (Negative) Urine Blood Negative /uL (Negative) Urine Nitrite Negative (Negative) Urine Bilirubin Negative (Negative) Urine Urobilinogen Normal mg/dL (Negative) Urine Leukocyte Esterase Negative /uL (Negative) Urine RBC <1 /hpf (0 - 4) Urine Microscopic WBC < 1 /HPF (0-5) Urine Squamous Epithelial Cells Few /hpf (<5) Urine Bacteria None seen /hpf (None Seen) Urine Glucose Normal mg/dL (Normal) Urine Opiates Screen Neg (NEGATIVE) Urine Fentanyl Screen Neg (NEGATIVE) Urine Barbiturates Screen Neg (NEGATIVE) Urine Phencyclidine Screen Neg (NEGATIVE) Urine Amphetamines Screen Neg (NEGATIVE) Urine Benzodiazepines Screen Neg (NEGATIVE) Urine Cocaine Screen Neg (NEGATIVE) Urine Cannabinoids Screen Neg (NEGATIVE) Test 01/06/25 04:08 01/05/25 18:56 01/05/25 18:00 Prothrombin Time 11.4 sec (9.3-11.8) Prothrombin Time INR 1.08 (0.9-1.15) Activated Partial Thromboplast Time 28.5 SEC (24.5-34.5) Hemoglobin A1c 5.0 % A1C (<5.7) Magnesium Level 2.4 mg/dL (1.6-2.6) Total Bilirubin 0.7 mg/dL (0.2-1.0) Aspartate Amino Transferase (AST) < 8 U/L (13-40) Alanine Aminotransferase (ALT) < 9 U/L (7-40) Alkaline Phosphatase 81 U/L (46-116) Total Protein 6.8 g/dL (5.7-8.2) Albumin 4.4 g/dL (3.2-4.8) Thyroid Stimulating Hormone (TSH) 1.01 uIU/mL (0.55-4.78) Troponin I High Sensitivity < 3 ng/L (</=34) B-Type Natriuretic Peptide 37.90 pg/mL (0-100) Other Laboratory Tests 01/13/25 07:23 Brief Hx & Hospital Course: This is a 79-year-old female with a past medical history of hyperlipidemia and prior spinal trauma presents with progressive bilateral lower extremity weakness, numbness, tingling, and exacerbation of lower back pain. The patient reports a fall in 2003, following which she was told she had a spinal fracture, but she is unclear on the details. She underwent an MRI on October 2024, which reportedly confirmed this fracture. Since then, she has followed up with her PCP and pain specialist, who recommended possible disc infiltrations but no surgical intervention at that time. One week ago, the patient had another fall onto her knees. Since then, she reports worsening weakness, with the inability to stand without her legs "giving out." Over the past 2 days, this weakness has progressed to the point where she cannot ambulate at all. She also reports bilateral leg numbness and tingling, as well as worsening lower back pain, especially when attempting to walk. Additionally, she reports bilateral leg swelling for the past several days. She has a remote history of right leg surgery, though she is unsure of the exact procedure. She denied weakness, perianal numbness, fecal and urinary incontinence, fever, chills, positive sick contact or any recent traveling. Hospital course: Initially patient was presented with bilateral lower extremity tingling and numbess and not able to ambulae herself. CT of L/S showed- Mild spinal canal narrowing at T12, Small posterior disc osteophyte complex at L3-4, circumferential disc bulge with bilateral inferior foraminal extension l3 l4. Suspected severe left L3-4 foraminal narrowing with posterior disc osteophyte complex in the left lateral recess. MRI of lumbosacral spine revealed Severe compression deformity of T12 with complete loss of height centrally anteriorly with 5.4 mm retropulsion indenting ventral distal thoracic cord without evidence of cord edema or myelomalacia at this time. Multiple indeterminate lumbar spine bone lesions measuring up to 2.1 cm. This should be further evaluated with MRI with IV contrast and/or 3-phase bone scan to rule out primary or metastatic malignancy. L1 to S1 Minimal broad-based posterior disc bulge, moderate bilateral Posterior facets arthropathy and mild ligamentum flavum hypertrophy mild bilateral neural foramina stenosis. MRI of cervical spine showed Long segment posterior cord signal involving the bilateral fasciculus gracilis and fasciculus cuneatus from C2 to T1 levels suggestive of transverse myelitis. The differential diagnosis includes other demyelination disorders. No cord expansion/edema noted. Straightening of normal lordosis, multilevel degenerative disc disease, uncovertebral and posterior facet arthropathy with evidence of nerve impingement throughout the cervical spine. Hepatitis panel showed HAV antibody positive, hepatitis-B and C negative and HIV also negative, JEANNETTE negative, - Hepatitis panel showed HAV antibody positive, hepatitis-B and C negative and HIV also negative. TSH, B12 and VitaminD are normal. Spinal surgery was on board and recommended surgery but patient refused inpatient surgery and choose outpatient surgery due to recent of her . Patient was treated with IV methylprednisolone 1000 mg daily for 5 days and physical therapy for transverse myelitis. Plan was discussed with the patient and all questions were answered. The patient is being discharged to home with gabapentin 100 mg p.o. daily for 1 month and advised to follow up with [facility] with Dr. Schwarz and resident dr. Gonzalez on 05/11 ,continue outpatient physical therapy, follow up with outpatient Neurology and spinal surgery in 1-2 weeks. Physical examination: General Appearance: Alert, Oriented X3, Cooperative, No acute distress HEENT: Atraumatic, PERRLA, EOMI, Mucous membrane moist/pink Respiratory: Clear to auscultation, Normal air movement Cardiovascular: Regular rate, Normal S1, Normal S2, No murmurs, no chest wall tenderness Abdominal: Normal bowel sounds, Soft, No tenderness, No hepatosplenomegaly, No masses Extremities: No clubbing, No cyanosis, No edema, Normal pulses, No tenderness/swelling Skin: No rashes, No breakdown, No significant lesion Neuro: Use wheel chair, decreased sensation from below-knee to ankle, perianal sensation is intact, Normal speech, Strength at 4/5 X4 ext, Normal tone, grossly intact cranial nerves. Psych/Mental Status: Mental status NL, Mood NL Diagnosis: # S/p mechanical fall # Acute transverse myelitis of C2 to T1 # Possible spinal canal stenosis # Ruled out DVT # Leucopenia Consults/Reason for consult Spinal surgery was consulted Operations or Procedures EXAM: MRI CERVICAL WO CONTRAST HISTORY: concern for cervical stenosis FINDINGS: CRANIOCERVICAL JUNCTION: The atlanto-dens interval is within normal limits. There is no evidence for significant cerebellar tonsillar ectopia. BONES: Vertebral body heights are preserved. No acute compression deformities are present. No discrete marrow infiltrative lesion is seen. SPINAL CORD: Long segment segment abnormal increased PD and T2 cord signal in the bilateral posterior paramedian regions involving fasciculus gracilis and fasciculus cuneatus extending from C2 to T1 level. No cord expansion noted. PARASPINAL SOFT TISSUES: Unremarkable. INTERVERTEBRAL DISCS: C2-C3: Mild reduction in disc height with irregularity of the endplates, mild broad-based posterior disc-osteophyte complex, moderate bilateral posterior facet hypertrophy uncovertebral arthropathy with mild central canal stenosis, mild right and moderate left neural foramina stenosis with impingement of the left exiting nerve. C3-C4: 4 mm broad-based posterior disc bulge, mild bilateral posterior facet and uncovertebral hypertrophy with resultant mild central canal stenosis , severe left and moderate right neural foramina stenosis with impingement of the bilateral exiting nerves. C4-C5: Mild reduction in disc height, 3 mm broad-based posterior disc bulge, mild right and severe left posterior facet arthropathy mild left uncovertebral hypertrophy with resultant mild central canal stenosis, mild right and severe left neural foraminal stenosis with impingement of the left exiting nerve. C5-C6: Mild reduction in disc height, irregularity of the adjacent endplates with Modic type 2 discogenic endplate changes , moderate bilateral posterior facet, uncovertebral and ligamentum flavum hypertrophy right uncovertebral hypertrophy with resultant mild central canal stenosis and severe bilateral neural foramina stenosis with impingement of the bilateral exiting nerves. C6-C7: 2 mm degenerative grade 1 anterolisthesis, mild broad-based posterior disc bulge, modic type 2 discogenic endplate changes, mild bilateral posterior facet and ligamenta flava hypertrophy moderate right uncovertebral hypertrophy with resultant severe right and moderate left central canal stenosis and mild neural foramina stenosis with impingement of the bilateral exiting nerves. C7-T1: 3 mm degenerative grade 1 anterolisthesis, mild broad-based posterior disc bulge bilateral posterior facet arthropathy with resultant mild central canal stenosis, mild right and moderate left neural foraminal stenosis with impingement of the left exiting nerve. IMPRESSION: Long segment posterior cord signal involving the bilateral fasciculus gracilis and fasciculus cuneatus from C2 to T1 levels suggestive of transverse myelitis. The differential diagnosis includes other demyelination disorders. No cord expansion/edema noted. Straightening of normal lordosis, multilevel degenerative disc disease, uncovertebral and posterior facet arthropathy with evidence of nerve impingement throughout the cervical spine. C2-C3: Mild reduction in disc height with irregularity of the endplates, mild broad-based posterior disc-osteophyte complex, moderate bilateral posterior facet hypertrophy uncovertebral arthropathy with mild central canal stenosis, mild right and moderate left neural foramina stenosis with impingement of the left exiting nerve. C3-C4: 4 mm broad-based posterior disc bulge, mild bilateral posterior facet and uncovertebral hypertrophy with resultant mild central canal stenosis , severe left and moderate right neural foramina stenosis with impingement of the bilateral exiting nerves. C4-C5: Mild reduction in disc height, 3 mm broad-based posterior disc bulge, mild right and severe left posterior facet arthropathy mild left uncovertebral hypertrophy with resultant mild central canal stenosis, mild right and severe left neural foraminal stenosis with impingement of the left exiting nerve. C5-C6: Mild reduction in disc height, irregularity of the adjacent endplates with Modic type 2 discogenic endplate changes , moderate bilateral posterior facet, uncovertebral and ligamentum flavum hypertrophy right uncovertebral hypertrophy with resultant mild central canal stenosis and severe bilateral neural foramina stenosis with impingement of the bilateral exiting nerves. C6-C7: 2 mm degenerative grade 1 anterolisthesis, mild broad-based posterior disc bulge, modic type 2 discogenic endplate changes, mild bilateral posterior facet and ligamenta flava hypertrophy moderate right uncovertebral hypertrophy with resultant severe right and moderate left central canal stenosis and mild neural foramina stenosis with impingement of the bilateral exiting nerves. C7-T1: 3 mm degenerative grade 1 anterolisthesis, mild broad-based posterior disc bulge bilateral posterior facet arthropathy with resultant mild central canal stenosis, mild right and moderate left neural foraminal stenosis with impingement of the left exiting nerve. EXAM: MRI LUMBAR SPINE WO CONTRAST HISTORY: spinal stenosis wo contrast COMPARISON: CT scan dated 01/05/2025 TECHNIQUE: MRI was performed utilizing multiple appropriate imaging planes and pulse sequences. FINDINGS: For the purposes of this report, the last square-shaped vertebra is considered L5. Prior to any surgery, correlation with lumbar spine radiographs should be done. VERTEBRAE: The lumbar vertebrae are normal in height . 3 mm degenerative grade 1 anterolisthesis of L3 on L4 without pars defect noted. Severe anterior compression deformity of T12 with complete loss of height anteriorly 5.4 mm retropulsion without significant an underlying bone marrow edema reflecting chronic injury. A 2.1 cm T2 hyperintense, IR hyperintense and PD hypointense lesion noted in the L3 vertebral body with the signal characteristics not typical of hemangioma. Several IR hypointense, T2 and T1 hyperintense lesions are seen measuring up to 1.5 cm in the right upper posterior L4 vertebral body subcentimeter in L2 and L4 vertebral bodies that are also indeterminate. No suspicious lesion is seen. SPINAL CORD: Terminates at the L1-L2 level. No evidence of cord edema or myelomalacia within the partially visualized conus medullaris. PARASPINAL SOFT TISSUES: Unremarkable. INTERVERTEBRAL DISCS: T12-L1: No disc herniation, central canal stenosis or neural foramina narrowing. The posterior facets and ligamentum flavum are unremarkable. L1-L2: 2-3 mm degenerative grade 1 anterolisthesis without pars defects, mild broad-based posterior disc bulge, eccentric to the right measuring up to 4.5 mm in the right paracentral region, mild bilateral posterior facet and ligamentum flavum hypertrophy with mild central canal stenosis, and abutment of the right emerging nerve roots. L2-L3: Mild broad-based posterior disc bulge, mild bilateral posterior facet and ligamenta flava hypertrophy with resultant mild central canal stenosis and mild bilateral neural foramina stenosis abutting the bilateral emerging nerve roots. L3-L4: 3 mm degenerative grade 1 anterolisthesis without pars defects, moderate reduction disc height, mild broad-based posterior disc bulge, bilateral posterior facet and ligamentum flavum hypertrophy with resultant mild central canal stenosis, severe left and mild right neural foramina stenosis impingement of the left exiting L3 nerve and abutment of the bilateral emerging nerve roots. L4-L5: Mild broad-based posterior disc bulge, mild bilateral posterior facet and ligamenta flava hypertrophy with resultant mild central canal stenosis and mild bilateral neural foramina stenosis without definite nerve impingement. L5-S1: Minimal broad-based posterior disc bulge, moderate bilateral Posterior facets arthropathy and mild ligamentum flavum hypertrophy mild bilateral neural foramina stenosis and abutment of the right emerging S1 nerve roots and right exiting L5 nerve. OTHER: None. IMPRESSION: Severe compression deformity of T12 with complete loss of height centrally anteriorly with 5.4 mm retropulsion indenting ventral distal thoracic cord without evidence of cord edema or myelomalacia at this time. Multiple indeterminate lumbar spine bone lesions measuring up to 2.1 cm. This should be further evaluated with MRI with IV contrast and/or 3-phase bone scan to rule out primary or metastatic malignancy. Also correlate with history of known malignancy. Mild rightward curvature of the lumbar spine, mild multilevel degenerative spondylolisthesis, multilevel degenerative disc disease and posterior facet arthropathy with evidence of nerve impingement throughout the lumbar spine. L1-L2: 2-3 mm degenerative grade 1 anterolisthesis without pars defects, mild broad-based posterior disc bulge, eccentric to the right measuring up to 4.5 mm in the right paracentral region, mild bilateral posterior facet and ligamentum flavum hypertrophy with mild central canal stenosis, and abutment of the right emerging nerve roots. L2-L3: Mild broad-based posterior disc bulge, mild bilateral posterior facet and ligamenta flava hypertrophy with resultant mild central canal stenosis and mild bilateral neural foramina stenosis abutting the bilateral emerging nerve roots. L3-L4: 3 mm degenerative grade 1 anterolisthesis without pars defects, moderate reduction disc height, mild broad-based posterior disc bulge, bilateral posterior facet and ligamentum flavum hypertrophy with resultant mild central canal stenosis, severe left and mild right neural foramina stenosis impingement of the left exiting L3 nerve and abutment of the bilateral emerging nerve roots. L4-L5: Mild broad-based posterior disc bulge, mild bilateral posterior facet and ligamenta flava hypertrophy with resultant mild central canal stenosis and mild bilateral neural foramina stenosis without definite nerve impingement. L5-S1: Minimal broad-based posterior disc bulge, moderate bilateral Posterior facets arthropathy and mild ligamentum flavum hypertrophy mild bilateral neural foramina stenosis and abutment of the right emerging S1 nerve roots and right exiting L5 nerve. Condition at Discharge: Guarded Final Diagnosis/Problems List # S/p mechanical fall # Acute transverse myelitis of C2 to T1 # Possible spinal canal stenosis # Ruled out DVT # Leucopenia Discharge Disposition: Home Discharge Instruct/Medications Diet: Regular Activity: No Restrictions, As Tolerated Follow Up/Referral: Follow up with [facility] on 01/23/25Thursday at 8:30 AM. Follow up with outpatient neurology and spinal surgery in 1 to 2 weeks. Medications: Gabapentin 100 mg tid for 1 month. Continue outpatient physical therapy. Discharge Statement: "Patient was advised to return to the ER or call 911 if any headaches, dizziness, shortness of breath, chest pain, abdominal pain, bleeding, fevers, or worsening of medical condition. Patient was counseled about treatment plan, medications, possible side effects, patientverbalized understanding. All questions were answered to the best of my ability. This discharge took greater then 30 minutes in planning, reviewing documentation, counseling the patient, and discussing with other team members." ASSESSMENT ASSESSMENT Assessment Acute transverse myelitis of C2 to T1. ELIZABETH GONZALEZ RESIDENT January 13, 2025 14:15
== END 2025-01-13 16:45 | disposition home health service (06) | DRG 98 ==
LOC: ER 16:50 → OVERFLOW 21:21 → EAST 22:52
PROVIDERS: ADMIT Internal Medicine Pulmonary Disease; ATTEND Internal Medicine Pulmonary Disease
DX: G37.3 Acute transverse myelitis in demyelinating disease of central nervous system (principal); J98.11 Atelectasis; M48.54XA Collapsed vertebra, not elsewhere classified, thoracic region, initial encounter for fracture; M48.02 Spinal stenosis, cervical region; M51.26 Other intervertebral disc displacement, lumbar region; D72.819 Decreased white blood cell count, unspecified; E78.5 Hyperlipidemia, unspecified; M25.78 Osteophyte, vertebrae; M43.16 Spondylolisthesis, lumbar region; M48.04 Spinal stenosis, thoracic region; Z96.653 Presence of artificial knee joint, bilateral; Z91.81 History of falling; Z79.899 Other long term (current) drug therapy
CPT/HCPCS: 36415; 71045; 72131; 72141; 72148; 80048; 80053; 80307; 81001; 82306; 82607; 83036; 83735; 83880; 84443; 84484; 85007; 85025; 85027; 85610; 85730; 86038; 86703; 86704; 86706; 86708; 86803; 87340; 93306; 93970; 97110; 97116; 97163; 97530; G0378; J1100; J2470

== ENCOUNTER 2025-03-02 13:45 | Outpatient (CLI) | payer MEDICARE ==
[~2025-03-02 13:45] MED LIST: GABA-1308 PO
[2025-03-02 15:07] LABS: Anion Gap 7 (5-15); Carbon Dioxide 27 mmol/L (20-31); Chloride 105 mmol/L (98-107); Potassium 4.6 mmol/L (3.5-5.1); Sodium 139 mmol/L (136-145)
[2025-03-02 15:13] LABS: BUN/Creatinine Ratio 22.4 (10.0-20.0); Blood Urea Nitrogen 15 mg/dL (9-23); Glucose 81 mg/dL (74-106)
[2025-03-02 15:14] LABS: Calcium 10.4 mg/dL (8.7-10.4)
== END 2025-03-02 17:00 | disposition home or self-care (01) ==
LOC: LAB 13:45
PROVIDERS: ATTEND Internal Medicine
DX: E78.6 Lipoprotein deficiency (principal)
CPT/HCPCS: 36415; 80048

== ENCOUNTER 2025-03-27 14:56 | Inpatient (IN) | payer MEDICARE ==
[~2025-03-27] VITALS: Ht 162.6 cm; Wt 71.2 kg
--- NOTE | 2025-03-27 15:46 | ED.PDOC ---
History of Present Illness HPI Comments This is 79-year-old female with past medical history of transverse myelitis, cervical spine stenosis presented to the ED with a chief complaint of severe bilateral tingling and numbness in the upper extremity and left-sided lower extremity numbness from left hip, groin up to foot getting worse for last 2 weeks that prompted this visit. The patient was admitted in [facility] on last Dec, 2024 and cervical spine MRI revealed that time moderate to severe cervical spine stenosis and impingement of nerve in all levels. Patient has an upcoming appointment with Dr. Sims on 04/14/2025. She denies fever, chills, urinary or fecal incontinence, perianal numbness or any motor weakness. PCP: Dr. 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 Family History Family History: Reviewed,noncontributory to illness Social History Smoker: Non-Smoker Alcohol: Denies ETOH Use Drugs: Denies Drug Use Lives In: Home EENTM: denies: blurred vision, double vision, ear bleeding, ear discharge, ear drainage, ear pain, ear ringing, eye pain, eye redness, hearing loss, mouth pain, mouth swelling, nasal discharge, nose bleeding, nose congestion, nose pain, photophobia, tearing, throat pain, throat swelling, voice changes, others Respiratory: denies: cough, hemoptysis, orthopnea, SOB at rest, shortness of breath, SOB with excertion, stridor, wheezing, others Cardiovascular: denies: chest pain, dizzy spells, diaphoresis, Dyspnea on exertion, edema, irregular heart beat, left arm pain, lightheadedness, palpitations, PND, syncope, others Gastrointestinal: denies: abdomen distended, abdominal pain, blood streaked bowels, constipated, diarrhea, dysphagia, difficulty swallowing, hematemesis, melena, nausea, poor appetite, poor fluid intake, rectal bleeding, rectal pain, vomiting, others Genitourinary: denies: abnormal vagina bleeding, burning, dyspareunia, dysuria, flank pain, frequency, hematuria, incontinence, pain, , vagina discharge, urgency, others Neurological: reports: left sided numbness, numbness, tingling (Bilateral upper extremity tingling and numbness) Musculoskeletal: denies: back pain, gout, joint pain, joint swelling, muscle pain, muscle stiffness, neck pain, others Allergic/Immunocompromised: denies: Difficulty Healing, Frequent Infections, Hives, Itching, others Hematologic/Lymphatic: denies: anemia, blood clots, easy bleeding, easy bruising, swollen glands, others Endocrine: denies: excessive hunger, excessive sweating, excessive thirst, excessive urination, flushing, intolerance to cold, intolerance to heat, unexplained weight gain, unexplained weight loss, others Psychiatric: denies: anxiety, bipolar disorder, depression, hopeless, panic disorder, schizophrenia, sleepless, suicidal, others Physical Exam General Appearance: Mild Distress HEENT: Normal ENT Inspection, Pharynx Normal, TMs Normal Neck: Full Range of Motion, Non-Tender, Normal, Normal Inspection Respiratory: Chest Non-Tender, Lungs Clear, No Accessory Muscle Use, No Respi ratory Distress, Normal Breath Sounds Cardiovascular: No Edema, No JVD, No Murmur, No Gallop, Normal Peripheral Pulses, Regular Rate/Rhythm Breast Exam: Deferred Gastrointestinal: No Organomegaly, Non Tender, No Pulsatile Mass, Normal Bowel Sounds, Soft Genitalia: Deferred Pelvic: Deferred Rectal: Deferred Extremities: Leg edema Neurologic: R/L Numbness, Sensory Deficit, Other (Wheelchair-bound) Cerebellar Function: NOT DONE Reflexes: NOT DONE Skin: Dry, Normal Color, Warm Peripheral Pulses: 2+ carotid (R), 2+ carotid (L), 2+ femoral (R), 2+ femoral (L), 2+ dorsalis pedis (R), 2+ dorsalis pedis (L), 2+ Radial (R), 2+ Radial (L), 2+ Brachial (R), 2+ Brachial (L) Lymphatic: NOT DONE Was a procedure done? Was a procedure done?: No Differential Dx Considerations may include: Cervical spinal stenosis, myelopathy, transverse myelitis, demyelinating disease, B12 deficiency, polyneuropathy X-Ray, Labs, Meds, VS Vital Signs Date Time Temp Pulse Resp B/P (MAP) Pulse Ox O2 Delivery O2 Flow Rate FiO2 03/27/25 14:57 97.3 87 18 115/60 96 97.3 Time of 1ST Reevaluation: 17:00 Reevaluation 1ST: Unchanged Patient Education/Counseling: Diagnosis, Treatment Family Education/Counseling: No Family Present Comments This is 79-year-old female presented to the ER with a chief complaint of severe bilateral tingling and numbness, not able to hold anything, left-sided numbness from left hip, groin to feet. MRI of cervical spine on 01/08 demonstrated moderate to severe cervical spine stenosis and nerve impingement in all cervical spine level. The patient was not able to follow Dr. Sims on outpatient and the appointment is scheduled on 04/14 The patient needs inpatient admission for further evaluation and management of possible moderate to severe cervical spine stenosis SEPSIS Sepsis Screen Date sepsis recognized/suspect: Mar 27, 2025 Time Sepsis recognized/suspect: 1459 Recent Procedure: No On Antibiotic Therapy: No Respiratory Rate >20: No Heart Rate >90: No Temp<36 C (96.8 F) or >38.3 C: No SBP <90 or MAP <65 mmHG: No New Acute Mental Status Change: No Is the patient on CPAP, BIPAP,: No Physician Orders Complete Blood Count (03/27/25 15:34) Basic Metabolic Panel (03/27/25 15:34) Urinalysis (03/27/25 15:34) Vital Signs Date Time Temp Pulse Resp B/P (MAP) Pulse Ox O2 Delivery O2 Flow Rate FiO2 03/27/25 14:57 97.3 87 18 115/60 96 97.3 Departure 1 Departure Time of Disposition: 17:19 Impression: Primary Impression: Cervical spinal stenosis Additional Impression: Thoracic compression fracture Disposition: 30 STILL A PATIENT Admit to: Med Surg Condition: Guarded Critical Care Note Critical Care Time?: No Stability Stability form required: ELIZABETH Holman RESIDENT Mar 27, 2025 15:46
[2025-03-27 17:38] LABS: Hematocrit 38.6 % (36.0-46.0); Hemoglobin 12.9 g/dL (12.2-16.2); Mean Corpuscular Hemoglobin 31.0 pg (28.0-32.0); Mean Corpuscular Volume 92.8 fL (80.0-100.0); Nucleated Red Blood Cells % 0.2 %
[2025-03-27 17:49] LABS: Chloride 103 mmol/L (98-107); Potassium 3.8 mmol/L (3.5-5.1); Sodium 139 mmol/L (136-145)
[2025-03-27 17:50] LABS: Anion Gap 8 (5-15); Calcium 9.4 mg/dL (8.7-10.4); Carbon Dioxide 28 mmol/L (20-31)
[2025-03-27 17:55] LABS: BUN/Creatinine Ratio 9.9 (10.0-20.0); Glucose 90 mg/dL (74-106)
[2025-03-27 17:56] LABS: Blood Urea Nitrogen 7 mg/dL (9-23)
[2025-03-27] MEDS: SODIUM CHLORIDE 0.9% 1,000 ML IV SCH (21:30)
[2025-03-27] MEDS ORDERED: HYDROcodone-ACET 5/325MG TAB PO PRN (21:30)
[2025-03-27 21:56] LABS: Triglycerides 100 mg/dL (< 150)
[2025-03-27 21:58] LABS: Cholesterol 187 mg/dL (< 200)
[2025-03-27] MEDS: PREGABALIN CAPSULE 75 MG CAP PO SCH (22:00)
[2025-03-27 22:05] LABS: HDL Cholesterol 60 mg/dL (40-59)
--- NOTE | 2025-03-27 22:16 | DVHHPRES ---
History of Present Illness Resident Creating Document: OSKAR CRAWFORD RESIDENT History of Present Illness This is an 79-year-old female with past medical history of transverse myelitis, severe cervical spine stenosis and severe thoracic spine stenosis. The patient presented to the ED with chief complaint of severe numbness/tingling and stiffness of bilateral hands and mild symptoms on bilateral upper extremities as well. The patient also reported left lower extremity numbness that starts in the lateral left hip and radiates all the way down to the left foot causing numb ness and tingling sensation as well. The patient reports that recently she has not been able to grab things with her hands due to numbness and stiffness sensation on bilateral hands and has been very difficult even to eat by her own. The patient was recently admitted to the [facility] on December of 2024 and both cervical and thoracic spine MRI were performed at that time showing multiple levels of bulging disc and nerve impingement in both cervical and thoracic areas. Patient does report that she has an upcoming appointment with Dr. Lee on April 14, 2025. The patient states that symptoms has been getting worse and that is the reason why she will like to get assessed and evaluated once again. Patient denies fever/chills, focal weakness or any neurologic deficits at this time aside from just numbness and tingling sensations. We will consult Dr. Lee (spine surgeon) for further assessment and management. We will admit the patient and do a trial of pregabalin with other pain medications while patient gets assessed by specialist. Past medical history: Transverse myelitis, severe cervical spine stenosis, severe thoracic spine stenosis with radiculopathy Surgical history: Denies surgical history Home medications: Oxybutynin 10 mg daily Social history: Denies alcohol consumption, drug ingestion or smoking. Past Surgical History: None Family History: None Smoke: No ALCOHOL: none Drugs: None Lives: with Family Domestic Violence: Neg Review of Systems Constitutional: No: Fever, Chills, Sweats, Weakness, Malaise, Other Eyes: No: Pain, Vision change, Conjunctivae inflammation, Eyelid inflammation, Other, Redness ENT: No: Ear pain, Ear discharge, Nose pain, Nose discharge, Nose congestion, Mouth pain, Mouth swelling, Throat pain, Throat swelling, Other Respiratory: No: Cough, Dry, Shortness of breath, SOB with excertion, Wheezing, Hemoptysis, Pleuritic Pain, Sputum, Wheezing, Other Cardiovascular: No: Chest Pain, Palpitations, Orthopnea, Paroxysmal Noc. Dyspnea, Edema, Lt Headedness, Other Gastrointestinal: No: Nausea, Vomiting, Abdominal Pain, Diarrhea, Constipation, Melena, Hematochezia, Other Genitourinary: No Dysuria, No Frequency, No Incontinence, No Hematuria, No Retention, No Other Musculoskeletal: other (Patient reports bilateral hand stiffness, tingling numbness sensation. Patient also reports left lower extremity numbness that radiates down to the left foot associated with tingling and numbness sensation as well.); No: neck pain, shoulder pain, arm pain, back pain, hand pain, leg pain, foot pain Skin: No: Rash, Lesions, Jaundice, Bruising, Other Neurological: No: Weakness, Numbness, Incoordination, Change in speech, Confusion, Seizures, Other Allergies: Coded Allergies: NO KNOWN ALLERGIES (Unverified , 01/05/25) Medications Current Medications Medications Dose Ordered Sig/Wendy Route Start Time Stop Time Status Last Admin Dose Admin Sodium Chloride 1,000 ml @ 60 mls/hr [id number] IV 03/27/25 21:30 Acetaminophen 650 mg Q6HP PRN PO 03/27/25 21:30 Acetaminophen/ Hydrocodone Bitart 1 tab Q4HP PRN PO 03/27/25 21:30 Enoxaparin Sodium 40 mg DAILY SC 03/28/25 10:00 Pregabalin 75 mg BID PO 03/27/25 22:00 UNV Exam Vital Signs Vital Signs Date Time Temp Pulse Resp B/P (MAP) Pulse Ox O2 Delivery O2 Flow Rate FiO2 03/27/25 19:44 98.2 82 16 105/56 (72) 98 98.2 General Appearance: Alert, Oriented X3, Cooperative, No acute distress HEENT: Atraumatic, PERRLA, EOMI, Mucous membr. moist/pink Respiratory: Clear to auscultation, Normal air movement Cardiovascular: Regular rate, Normal S1, Normal S2, No murmurs Abdominal: Normal bowel sounds, Soft, No tenderness, No hepatospenomegaly Extremities: No clubbing, No cyanosis, No edema, Normal pulses, No tenderness/swelling Skin: No rashes, No breakdown, No significant lesion Neuro: Normal speech, Strength at 5/5 X4 ext, Normal tone, Sensation intact, Cranial nerves 3-12 NL, Reflexes 2+, Other (Patient reports tingling/numbness sensation on bilateral hands and left lower extremity radiating to the left foot) Psych/Mental Status: Mental status NL, Mood NL Labs/Xrays Labs Test 03/27/25 17:25 Range/Units White Blood Count 2.8 L 4.4-10.8 10^3/uL Red Blood Count 4.16 4.0-5.20 10^6/uL Hemoglobin 12.9 12.2-16.2 g/dL Hematocrit 38.6 36.0-46.0 % Mean Corpuscular Volume 92.8 80.0-100.0 fL Mean Corpuscular Hemoglobin 31.0 28.0-32.0 pg Mean Corpuscular Hemoglobin Concent 33.4 32.0-36.0 g/dL Red Cell Distribution Width 15.5 H 11.8-14.3 % Platelet Count 263 140-450 10^3/uL Mean Platelet Volume 7.5 6.9-10.8 fL Neutrophils (%) (Auto) 36.3 L 37.0-80.0 % Lymphocytes (%) (Auto) 36.8 10.0-50.0 % Monocytes (%) (Auto) 15.1 H 0.0-12.0 % Eosinophils (%) (Auto) 10.6 H 0.0-7.0 % Basophils (%) (Auto) 1.2 0.0-2.0 % Neutrophils # (Auto) 1.0 L 1.6-8.6 10 ^3/uL Lymphocytes # (Auto) 1.0 0.4-5.4 10 ^3/uL Monocytes # (Auto) 0.4 0-1.3 10 ^3/uL Eosinophils # (Auto) 0.3 0-0.8 10 ^3/uL Basophils # (Auto) 0 0-0.2 10 ^3/uL Nucleated Red Blood Cells 0.2 % Sodium Level 139 136-145 mmol/L Potassium Level 3.8 3.5-5.1 mmol/L Chloride Level 103 98-107 mmol/L Carbon Dioxide Level 28 20-31 mmol/L Anion Gap 8 5-15 Blood Urea Nitrogen 7 L 9-23 mg/dL Creatinine 0.71 0.550-1.02 mg/dL Glomerular Filtration Rate Calc 85 >90 mL/min BUN/Creatinine Ratio 9.9 L 10.0-20.0 Serum Glucose 90 74-106 mg/dL Calcium Level 9.4 8.7-10.4 mg/dL SEPSIS Sepsis Screen Date sepsis recognized/suspect: Mar 27, 2025 Time Sepsis recognized/suspect: 1458 Recent Procedure: No On Antibiotic Therapy: No Respiratory Rate >20: No Heart Rate >90: No Temp<36 C (96.8 F) or >38.3 C: No SBP <90 or MAP <65 mmHG: No New Acute Mental Status Change: No Is the patient on CPAP, BIPAP,: No Physician Orders Consultdr. Uriel Aj(Spine) (03/27/25 19:08) Admit (03/27/25 21:19) Code Status (03/27/25 21:19) Vital Signs .PER UNIT PROTOCOL (03/27/25 21:19) Review Orders With Adm.Md (03/27/25 21:19) Maintain Bed Rest (03/27/25 21:19) Regular Diet (03/28/25 Breakfast) Sodium Chloride 0.9% (03/27/25 21:30) Acetaminophen Tablet (Tylenol Tablet) (03/27/25 21:30) Notify Md Of Changes From Base (03/27/25 21:19) Advance Directive (03/27/25 21:19) Urinalysis (03/27/25 21:19) Lipid Panel (03/27/25 21:19) Patient Condition (03/27/25 21:19) Allergies (03/27/25 21:19) Hydrocodone-Acet 5/325mg Tab ([place] 5/32 (03/27/25 21:30) Drug Screen (03/27/25 21:19) Hemoglobin A1c (03/27/25 21:19) Enoxaparin Sodium (Lovenox) (03/28/25 10:00) Pregabalin Capsule (Lyrica Capsule) (03/27/25 22:00) Complete Blood Count (03/28/25 04:00) Comprehensive Metabolic Panel (03/28/25 04:00) Vital Signs Date Time Temp Pulse Resp B/P (MAP) Pulse Ox O2 Delivery O2 Flow Rate FiO2 03/27/25 19:44 98.2 82 16 105/56 (72) 98 98.2 03/27/25 14:57 97.3 87 18 115/60 96 97.3 Laboratory Tests Test 03/27/25 17:25 White Blood Count 2.8 10^3/uL (4.4-10.8) L Assessment/Plan Assessment/Plan Assessment/plan Acute on chronic cervical and thoracic spine stenosis with radiculopathy 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 -start [place]/Tylenol (pain medication) -consulted spine surgeon (Dr. Lee) for possible surgical procedure -Monitor symptoms or any progression to weakness of any extremity Goals of care discussed with the patient at bedside, full code Plan discussed with Dr. Holder Plan discussed with: Patient My Orders Orders - OSKAR CRAWFORD RESIDENT Procedure Category Date Status Time Admit ADMIT 03/27/25 Transmitted 21:19 Code Status CODE 03/27/25 Transmitted 21:[address] [facility] 03/27/25 In Process 21:19 Review Orders With RAHEL 03/27/25 In Process Adm. 21:19 Maintain Bed Rest RAHEL 03/27/25 In Process 21:19 Regular Diet DIET 03/28/25 Transmitted Breakfast Sodium Chloride 0.9% PHA 03/27/25 In Process 21:30 Acetaminophen Tablet PHA 03/27/25 In Process (Tylenol Tablet) 21:30 Notify Of Changes RAHEL 03/27/25 In Process From Base 21:19 Advance Directive RAHEL 03/27/25 In Process 21:19 Urinalysis LAB 03/27/25 Logged 21:19 Lipid Panel LAB 03/27/25 In Process 21:19 Patient Condition ORDERS 03/27/25 Transmitted 21:19 Allergies RAHEL 03/27/25 In Process 21:19 Hydrocodone-Acet PHA 03/27/25 In Process 5/325mg Tab ([place] 21:30 Drug Screen LAB 03/27/25 Logged 21:19 Hemoglobin A1c LAB 03/27/25 In Process 21:19 Enoxaparin Sodium PHA 03/28/25 In Process (Lovenox) 10:00 Pregabalin Capsule PHA 03/27/25 Logged (Lyrica Capsule) 22:00 Complete Blood Count LAB 03/28/25 Verified 04:00 Comprehensive LAB 03/28/25 Verified Metabolic Panel 04:00 Date of Service: Mar 27, 2025 Billing Provider: ESSIE HOLDER MD Common Visit Codes: [id number] INP/OBS CARE (HIGH) Secondary Visit Codes: [id number] CARE PLAN 30 MINUTES OSKAR CRAWFORD RESIDENT Mar 27, 2025 22:16
[2025-03-28] VITALS (9 sets, daily range): BP systolic 104–144; BP diastolic 58–95; PULSE 58–75; RESP 16–18; TEMP 97.6–98.3; O2SAT 95–99
[2025-03-28 06:59] LABS: Hematocrit 35.4 % (36.0-46.0); Hemoglobin 11.8 g/dL (12.2-16.2); Mean Corpuscular Hemoglobin 30.8 pg (28.0-32.0); Mean Corpuscular Volume 92.2 fL (80.0-100.0); Nucleated Red Blood Cells % 0.1 %
[2025-03-28 07:15] LABS: Alanine Aminotransferase 11 U/L (7-40); Albumin 3.8 g/dL (3.2-4.8); Alkaline Phosphatase 69 U/L (46-116); Anion Gap 9 (5-15); BUN/Creatinine Ratio 9.4 (10.0-20.0); Calcium 8.9 mg/dL (8.7-10.4); Carbon Dioxide 26 mmol/L (20-31); Chloride 106 mmol/L (98-107); Glucose 89 mg/dL (74-106); Sodium 141 mmol/L (136-145)
[2025-03-28 07:16] LABS: Bilirubin, Total 0.5 mg/dL (0.2-1.0)
[2025-03-28 07:20] LABS: Blood Urea Nitrogen 6 mg/dL (9-23); Potassium 3.4 mmol/L (3.5-5.1); Total Protein 5.4 g/dL (5.7-8.2)
--- NOTE | 2025-03-28 08:05 | DVHINCON2 ---
Consultation - Spinal Surgery Date Seen: Mar 28, 2025 Referring Physician Referring Physician Attending Doctor: Coleman Talbert Resident Reason for Consultation cervical spine pain, falls History of Present Illness History of Present Illness History of Present Illness This is an 79-year-old female with past medical history of transverse myelitis, severe cervical spine stenosis and severe thoracic spine stenosis. The patient presented to the ED with chief complaint of severe numbness/tingling and stiffness of bilateral hands and mild symptoms on bilateral upper extremities as well. The patient also reported left lower extremity numbness that starts in the lateral left hip and radiates all the way down to the left foot causing numbness and tingling sensation as well. The patient reports that recently she has not been able to grab things with her hands due to numbness and stiffness sensation on bilateral hands and has been very difficult even to eat by her own. The patient was recently admitted to the [facility] on December of 2024 and both cervical and thoracic spine MRI were performed at that time showing multiple levels of bulging disc and nerve impingement in both cervical and thoracic areas. Patient does report that she has an upcoming appointment with Dr. Lee on April 14, 2025. The patient states that symptoms has been getting worse and that is the reason why she will like to get assessed and evaluated once again. Patient denies fever/chills, focal weakness or any neurologic deficits at this time aside from just numbness and tingling sensations. We will consult Dr. Lee (spine surgeon) for further assessment and management. We will admit the patient and do a trial of pregabalin with other pain medications while patient gets assessed by specialist. Past Medical/Surgical History Past Medical/Surgical History Past medical history: Transverse myelitis, severe cervical spine stenosis, severe thoracic spine stenosis with radiculopathy Surgical history: Denies surgical history Home medications: Oxybutynin 10 mg daily Social history: Denies alcohol consumption, drug ingestion or smoking. Past Surgical History: None Family and Social History Family and Social History Family History: None Smoke: No ALCOHOL: none Drugs: None Lives: with Family Domestic Violence: Neg Allergies and medications Allergies: Coded Allergies: NO KNOWN ALLERGIES (Unverified , 01/05/25) Home Meds Active Scripts Gabapentin (Gabapentin) 100 Mg Cap, 1 CAP PO TID for 30 Days, #90 CAP 2 Refills Prov:FARDOUS,ELIZABETH RESIDENT 01/13/25 Review of systems Review of Systems: HEENT:Normal, CVS:Normal, RESPIRATORY:Normal, GI:Normal, :Normal, MSK:Normal (4/5 x 3, exception left hand 3/5), NEURO:Abnormal (numbness to bilateral feet, weak hands) Examination Vital signs Imaging from 12/2024 EXAM: MRI CERVICAL WO CONTRAST HISTORY: concern for cervical stenosis COMPARISON: None TECHNIQUE: MRI was performed utilizing multiple appropriate imaging planes and pulse sequences. FINDINGS: CRANIOCERVICAL JUNCTION: The atlanto-dens interval is within normal limits. There is no evidence for significant cerebellar tonsillar ectopia. BONES: Vertebral body heights are preserved. No acute compression deformities are present. No discrete marrow infiltrative lesion is seen. SPINAL CORD: Long segment segment abnormal increased PD and T2 cord signal in the bilateral posterior paramedian regions involving fasciculus gracilis and fas ciculus cuneatus extending from C2 to T1 level. No cord expansion noted. PARASPINAL SOFT TISSUES: Unremarkable. INTERVERTEBRAL DISCS: C2-C3: Mild reduction in disc height with irregularity of the endplates, mild broad-based posterior disc-osteophyte complex, moderate bilateral posterior facet hypertrophy uncovertebral arthropathy with mild central canal stenosis, mild right and moderate left neural foramina stenosis with impingement of the left exiting nerve. C3-C4: 4 mm broad-based posterior disc bulge, mild bilateral posterior facet and uncovertebral hypertrophy with resultant mild central canal stenosis , severe left and moderate right neural foramina stenosis with impingement of the bilateral exiting nerves. C4-C5: Mild reduction in disc height, 3 mm broad-based posterior disc bulge, mild right and severe left posterior facet arthropathy mild left uncovertebral hypertrophy with resultant mild central canal stenosis, mild right and severe left neural foraminal stenosis with impingement of the left exiting nerve. C5-C6: Mild reduction in disc height, irregularity of the adjacent endplates with Modic type 2 discogenic endplate changes , moderate bilateral posterior facet, uncovertebral and ligamentum flavum hypertrophy right uncovertebral hypertrophy with resultant mild central canal stenosis and severe bilateral neural foramina stenosis with impingement of the bilateral exiting nerves. C6-C7: 2 mm degenerative grade 1 anterolisthesis, mild broad-based posterior disc bulge, modic type 2 discogenic endplate changes, mild bilateral posterior facet and ligamenta flava hypertrophy moderate right uncovertebral hypertrophy with resultant severe right and moderate left central canal stenosis and mild neural foramina stenosis with impingement of the bilateral exiting nerves. C7-T1: 3 mm degenerative grade 1 anterolisthesis, mild broad-based posterior disc bulge bilateral posterior facet arthropathy with resultant mild central canal stenosis, mild right and moderate left neural foraminal stenosis with impingement of the left exiting nerve. IMPRESSION: Long segment posterior cord signal involving the bilateral fasciculus gracilis and fasciculus cuneatus from C2 to T1 levels suggestive of transverse myelitis. The differential diagnosis includes other demyelination disorders. No cord expansion/edema noted. Straightening of normal lordosis, multilevel degenerative disc disease, uncove rtebral and posterior facet arthropathy with evidence of nerve impingement throughout the cervical spine. C2-C3: Mild reduction in disc height with irregularity of the endplates, mild broad-based posterior disc-osteophyte complex, moderate bilateral posterior facet hypertrophy uncovertebral arthropathy with mild central canal stenosis, mild right and moderate left neural foramina stenosis with impingement of the left exiting nerve. C3-C4: 4 mm broad-based posterior disc bulge, mild bilateral posterior facet and uncovertebral hypertrophy with resultant mild central canal stenosis , severe left and moderate right neural foramina stenosis with impingement of the bilateral exiting nerves. C4-C5: Mild reduction in disc height, 3 mm broad-based posterior disc bulge, mild right and severe left posterior facet arthropathy mild left uncovertebral hypertrophy with resultant mild central canal stenosis, mild right and severe left neural foraminal stenosis with impingement of the left exiting nerve. C5-C6: Mild reduction in disc height, irregularity of the adjacent endplates with Modic type 2 discogenic endplate changes , moderate bilateral posterior facet, uncovertebral and ligamentum flavum hypertrophy right uncovertebral hypertrophy with resultant mild central canal stenosis and severe bilateral neural foramina stenosis with impingement of the bilateral exiting nerves. C6-C7: 2 mm degenerative grade 1 anterolisthesis, mild broad-based posterior disc bulge, modic type 2 discogenic endplate changes, mild bilateral posterior facet and ligamenta flava hypertrophy moderate right uncovertebral hypertrophy with resultant severe right and moderate left central canal stenosis and mild neural foramina stenosis with impingement of the bilateral exiting nerves. C7-T1: 3 mm degenerative grade 1 anterolisthesis, mild broad-based posterior disc bulge bilateral posterior facet arthropathy with resultant mild central canal stenosis, mild right and moderate left neural foraminal stenosis with impingement of the left exiting nerve. Vital Signs Date Time Temp Pulse Resp B/P (MAP) Pulse Ox O2 Delivery O2 Flow Rate FiO2 03/28/25 05:14 98.3 72 17 123/66 (85) 96 98.3 03/28/25 01:42 Room Air* 0 21 Medications Current Medications Medications (Trade) Dose Ordered Sig/Wendy Route PRN Reason Start Time Stop Time Status Last Admin Sodium Chloride 1,000 ml @ 60 mls/hr [id number] IV 03/27/25 21:30 03/27/25 21:30 Acetaminophen (Tylenol Tablet) 650 mg Q6HP PRN PO PAIN SCALE 1-3 OR TEMP>100.4 03/27/25 21:30 Acetaminophen/ Hydrocodone Bitart (Mobile 5/325MG Tab) 1 tab Q4HP PRN PO MODERATE PAIN (4-6 PAIN SCALE) 03/27/25 21:30 Enoxaparin Sodium (Lovenox) 40 mg DAILY SC 03/28/25 10:00 Pregabalin (Lyrica Capsule) 75 mg BID PO 03/27/25 22:00 Laboratory Labs Test 03/28/25 05:38 03/27/25 17:25 Range/Units White Blood Count 2.6 L 4.4-10.8 10^3/uL Red Blood Count 3.84 L 4.0-5.20 10^6/uL Hemoglobin 11.8 L 12.2-16.2 g/dL Hematocrit 35.4 L 36.0-46.0 % Mean Corpuscular Volume 92.2 80.0-100.0 fL Mean Corpuscular Hemoglobin 30.8 28.0-32.0 pg Mean Corpuscular Hemoglobin Concent 33.4 32.0-36.0 g/dL Red Cell Distribution Width 15.3 H 11.8-14.3 % Platelet Count 211 140-450 10^3/uL Mean Platelet Volume 7.9 6.9-10.8 fL Neutrophils (%) (Auto) 37.3 37.0-80.0 % Lymphocytes (%) (Auto) 34.4 10.0-50.0 % Monocytes (%) (Auto) 13.7 H 0.0-12.0 % Eosinophils (%) (Auto) 12.8 H 0.0-7.0 % Basophils (%) (Auto) 1.8 0.0-2.0 % Neutrophils # (Auto) 1.0 L 1.6-8.6 10 ^3/uL Lymphocytes # (Auto) 0.9 0.4-5.4 10 ^3/uL Monocytes # (Auto) 0.4 0-1.3 10 ^3/uL Eosinophils # (Auto) 0.3 0-0.8 10 ^3/uL Basophils # (Auto) 0 0-0.2 10 ^3/uL Nucleated Red Blood Cells 0.1 % Sodium Level 141 136-145 mmol/L Potassium Level 3.4 L 3.5-5.1 mmol/L Chloride Level 106 98-107 mmol/L Carbon Dioxide Level 26 20-31 mmol/L Anion Gap 9 5-15 Blood Urea Nitrogen 6 L 9-23 mg/dL Creatinine 0.64 0.550-1.02 mg/dL Glomerular Filtration Rate Calc 89 >90 mL/min BUN/Creatinine Ratio 9.4 L 10.0-20.0 Serum Glucose 89 74-106 mg/dL Calcium Level 8.9 8.7-10.4 mg/dL Total Bilirubin 0.5 0.2-1.0 mg/dL Aspartate Amino Transferase (AST) 12 L 13-40 U/L Alanine Aminotransferase (ALT) 11 7-40 U/L Alkaline Phosphatase 69 46-116 U/L Total Protein 5.4 L 5.7-8.2 g/dL Albumin 3.8 3.2-4.8 g/dL Hemoglobin A1c 4.8 <5.7 % A1C Triglycerides Level 100 < 150 mg/dL Cholesterol Level 187 < 200 mg/dL LDL Cholesterol 107 H < 100 mg/dL HDL Cholesterol 60 H 40-59 mg/dL Examination: GENERAL:Normal, HEENT:Normal, NECK:Abnormal (painful), LUNGS:Normal, CVS:Normal, ABDOMEN:Normal, MSK:Normal, SKIN:Normal, NEURO:Abnormal (numbness to bilateral feet, weak hands), :Normal Problem List/Assessment/Plan Problems: (1) Cervical spinal stenosis Assessment and Plan Multilevel degenerative disc disease, cervical: multiple levels of degenerative grade 1 anterolisthesis, mild broad-based posterior disc bulge Patient would benefit from a cervical spine surgery to resolve the multiple disc issues she has. The spine team is available for surgery on Thursday03/31/25, pending cardiac clearance and surgery schedule availability She will reach out to her family and have a decision about her chosen treatment plan tomorrow. Continue supportive care per admitting team discretion PT while in house muscle relaxers to help with cervical spine muscle spasms cardiac and medical clearance for spine surgery requested. Patient is cleared for surgery, plan is for Thursday 7:00 C 3-6 ACDF. NPO night at midnight Plan discussed with Plan discussed with: Patient, Other JOHN PADILLA [employer]CRE[employer]IST Mar 28, 2025 08:05
[2025-03-28] MEDS: ENOXAPARIN SOD 40 MG/0.4 ML SYRINGE SC SCH (10:00)
[2025-03-28 10:15] LABS: Urine Amorphous Crystal FEW /hpf (None Seen); Urine Protein, UAD Negative (Negative)
[2025-03-28] MEDS: POTASSIUM EFFERVESENT TAB 25 MEQ PO ONE (10:23)
[2025-03-28 10:33] LABS: Amphetamine Screen, Urine Neg (NEGATIVE); Barbiturate Scree,Urine Neg (NEGATIVE); Benzodiazephine Screen, Urine Neg (NEGATIVE); Cannabinoid Screen, Urine Neg (NEGATIVE); Cocaine Screen, Urine Neg (NEGATIVE); Opiate Scree,Urine Neg (NEGATIVE); Phencyclidine Screen, Urine Neg (NEGATIVE)
--- NOTE | 2025-03-28 12:49 | DVH ---
CHEST RADIOGRAPH Indication: congestion Technique: Single frontal view of the chest was obtained Comparison: XY CHEST PORTABLE on DOS: 01/06/25 FINDINGS: Lines and Tubes: None Lungs: No focal consolidation. Pleura: No effusion. No pneumothorax. Cardiomediastinal contours: Unremarkable Bones: No acute osseous abnormality. IMPRESSION: Mild pulmonary edema.
[2025-03-28] MEDS: FUROSEMIDE 20 MG/2 ML VIAL IV SCH (13:10)
[2025-03-28 14:32] LABS: INR 1.17 (0.9-1.15); Partial Thromboplastin Time 30.5 SEC (24.5-34.5); Prothrombin Time 12.2 sec (9.3-11.8)
--- NOTE | 2025-03-28 16:41 | DVHPNRES ---
Progress Note Date Seen: Mar 28, 2025 Resident Creating Document: BHARAT NELSON RESIDENT Medical Necessity Reason Pt with a Central, PICC or Fol: No Subjective Review of Systems This is an 79-year-old female with past medical history of transverse myelitis, severe cervical spine stenosis and severe thoracic spine stenosis. The patient presented to the ED with chief complaint of severe numbness/tingling and stiffness of bilateral hands and mild symptoms on bilateral upper extremities as well. The patient also reported left lower extremity numbness that starts in the lateral left hip and radiates all the way down to the left foot causing numbness and tingling sensation as well. The patient reports that recently she has not been able to grab things with her hands due to numbness and stiffness sensation on bilateral hands and has been very difficult even to eat by her own. The patient was recently admitted to the [facility] on December of 2024 and both cervical and thoracic spine MRI were performed at that time showing multiple levels of bulging disc and nerve impingement in both cervical and thoracic areas. Patient does report that she has an upcoming appointment with Dr. Lee on April 14, 2025. The patient states that symptoms has been getting worse and that is the reason why she will like to get assessed and evaluated once again. Patient denies fever/chills, focal weakness or any neurologic deficits at this time aside from just numbness and tingling sensations. We will consult Dr. Lee (spine surgeon) for further assessment and management. We will admit the patient and do a trial of pregabalin with other pain medications while patient gets assessed by specialist. 03/28/2025 Patient seen at bedside. Patient is alert x3, in no distress, she still complains of tingling sensations in her hands and left lower extremity radiating to the left foot. He denies any fever, chills, nausea, vomiting, headaches, dizziness, constipation, diarrhea. Patient has bilateral pitting edema, advised to keep Patient states that when neck flexs the tingling sensation increases, and gets better when extending the neck. Spine surgeon was consulted, and recommended for cardiac clearance for procedure on Thursday. Cardiology consulted for cardiac clearance. Objective vital signs Vital Sign Date Time Temp Pulse Resp B/P (MAP) Pulse Ox O2 Delivery O2 Flow Rate FiO2 03/28/25 13:10 119/58 03/28/25 13:00 97.6 67 17 98 97.6 03/28/25 08:00 Room Air* 0 21 Total Intake and Output 03/27/25 03/27/25 03/28/25 15:00 23:00 07:00 Intake Total 400 ml Balance 400 ml medications Current Medications Medications Dose Ordered Sig/Wendy Route Start Time Stop Time Status Last Admin Dose Admin Sodium Chloride 1,000 ml @ 60 mls/hr [id number] IV 03/27/25 21:30 03/27/25 21:30 60 MLS/HR Acetaminophen 650 mg Q6HP PRN PO 03/27/25 21:30 Acetaminophen/ Hydrocodone Bitart 1 tab Q4HP PRN PO 03/27/25 21:30 Enoxaparin Sodium 40 mg DAILY SC 03/28/25 10:00 Pregabalin 75 mg BID PO 03/27/25 22:00 03/28/25 10:23 75 MG Furosemide 20 mg BIDD IV 03/28/25 12:00 03/28/25 13:10 20 MG Examination General: Patient alert and oriented in person, place and time. Patient following commands. HEENT: Normocephalic, atraumatic, moist mucous membranes Respiratory/pulmonary: Clear lungs bilaterally, vesicular murmurs present in almost all lung vargas, no associated crackles or wheezes. Cardiovascular: Normal heart sounds S1 and S2 with no associated murmurs Abdomen: Abdomen nondistended, there is no pain to palpation in any of the abdominal quadrants, no palpable masses. Extremities: +1 bilateral pitting edema. Patient reports tingling/numbness sensation on bilateral hands and left lower extremity radiating to the left foot Peripheral Pulses: 3+ Radial (R). 3+ Radial (L). 3+ Dorsalis pedis (R). 3+ Dorsalis pedis(L) Skin: No rashes or pruritus, there is no sacral edema present at this time. Neurological: Intact cranial nerves with no focal neurologic deficits laboratory and microbiology Laboratory Tests 03/28/25 05:38 Test 03/28/25 05:38 Range/Units Serum Glucose 89 74-106 mg/dL Labs and/or images reviewed: Labs reviewed by me, Image(s) reviewed by me (RN, ) Problem List/Assessment/Plan Problem List/Assessment/Plan #Acute on chronic cervical and thoracic spine stenosis with radiculopathy #Acute on chronic multilevel disc herniation on cervical and thoracic spine associated with mod/severe canal stenosis #Acute neuropathic pain likely due to above #History of transverse myelitis Plan -start pregabalin 75 mg b.i.d. -start [place]/Tylenol (pain medication) -consulted spine surgeon (Dr. Lee) for possible surgical procedure -Cardiology consulted, for cardiac clearance -Monitor symptoms or any progression to weakness of any extremity Goals of care addressed with the patient for more than 27 minutes: Full code status Case discussed with Dr. Guillen, patient and nurse Plan discussed with: Patient, Other My Orders My Orders Orders - BHARAT NELSON RESIDENT Procedure Category Date Status Time Chest Xray 1 View XY 03/28/25 Resulted 11:10 Date of Service: Mar 28, 2025 Billing Provider: ERICK GUILLEN MD Common Visit Codes: [id number] INP/OBS CARE(HIGH) BHARAT NELSON RESIDENT Mar 28, 2025 16:41 ERICK GUILLEN MD Mar 28, 2025 18:08
--- NOTE | 2025-03-28 16:59 | DVHINCON2 ---
Date Seen: Mar 28, 2025 Referring Physician DEMARCUS Edmondson Reason for Consultation Cardiac risk stratification History of Present Illness This is an 79-year-old female who presented to the emergency room with a chief complaint of bilateral lower/upper extremity paresthesia since December 2024 and pr ogressively getting worse during the past two weeks. She has been diagnosed with awypiodu-pb-bimqof cervical spine stenosis and impingement of nerve in all levels. Cardiology consulted for cardiac risk stratification prior to cervical spine surgery. Denies chest pain, palpitations, diaphoresis, SOB, dizziness, or syncopal events. Denies exertional angina or dyspnea on exertion. The patient ambulates with the assistance of a walker stating she can go about 20-40 feet at a time without any cardiac symptoms. She underwent a 12 lead electrocardiogram revealing a normal sinus rhythm. Significant medical history includes transverse myelitis, severe cervical spinal stenosis, and severe thoracic spine stenosis with radiculopathy. Past Medical History Past medical history reviewed. No other significant than mentioned above. Past Surgical History Past surgical history reviewed. No other significant than mentioned above. Family History: Patient reports no known family medical history. Family History Family history reviewed. Social History Denies the use of illicit drugs, alcohol, or tobacco use. Allergies: Coded Allergies: NO KNOWN ALLERGIES (Unverified , 01/05/25) Home Meds Active Scripts Gabapentin (Gabapentin) 100 Mg Cap, 1 CAP PO TID for 30 Days, #90 CAP 2 Refills Prov:ELIZABETH HDZ RESIDENT 01/13/25 Home Meds Home medications reviewed. Current Medications Current Medications Medications (Trade) Dose Ordered Sig/Wendy Route PRN Reason Start Time Stop Time Status Last Admin Sodium Chloride 1,000 ml @ 60 mls/hr [id number] IV 03/27/25 21:30 03/27/25 21:30 Acetaminophen (Tylenol Tablet) 650 mg Q6HP PRN PO PAIN SCALE 1-3 OR TEMP>100.4 03/27/25 21:30 Acetaminophen/ Hydrocodone Bitart ([place] 5/325MG Tab) 1 tab Q4HP PRN PO MODERATE PAIN (4-6 PAIN SCALE) 03/27/25 21:30 Enoxaparin Sodium (Lovenox) 40 mg DAILY SC 03/28/25 10:00 Pregabalin (Lyrica Capsule) 75 mg BID PO 03/27/25 22:00 03/28/25 10:23 Furosemide (Lasix Injection) 20 mg BIDD IV 03/28/25 12:00 03/28/25 13:10 Review of Systems Constitutional: No symptom reported Ears, Nose, & Throat: No symptom reported Eyes: No symptom reported Neurological: No symptoms reported Pulmonary/Respiratory: No symptom reported Cardiovascular: No symptom reported Gastrointestinal: No symptom reported Genitourinary: No symptom reported Musculoskeletal: Upper/lower extremity paresthesia Skin: No symptom reported Psychiatric: No symptom reported Endocrine: No symptom reported Hemotologic/Lymphatic: No symptom reported Vital Signs Vital Signs Date Time Temp Pulse Resp B/P (MAP) Pulse Ox O2 Delivery O2 Flow Rate FiO2 03/28/25 13:10 119/58 03/28/25 13:00 97.6 67 17 98 97.6 03/28/25 08:00 Room Air* 0 21 Physical Exam General Appearance: Cooperative. Well developed. Well nourished. In no acute distress Head Exam: Normal inspection Neck Exam: Normal inspection. Non-tender. Normal alignment Pulmonary/Respiratory: Chest non-tender. Diminished bilateral breath sounds Cardiovascular/Chest: Regular rate and rhythm. S1, S2. NSR. No murmurs. No JVD. Peripheral Pulses: 2+ Radial (R). 2+ Radial (L). 2+ Pedal (R). 2+ Pedal (L) Abdominal Exam: Normal bowel sounds. Soft. Nontender. No hepatospenomegaly. No masses Ankle Exam: Negative ankle edema Lower extremities: Positive lower extremity edema, non-pitting Neuro/Mental Status: A&O x4. Coherent Thoughts/Psych: Normal thought pattern. Appropriate mood and affect. Good judgement and insight Appearance: In no acute distress Skin Exam: Normal inspection. Normal color. Warm. Dry Labs/Diagnostic Data Labs Test 03/28/25 11:00 03/28/25 09:00 03/28/25 05:38 03/27/25 17:25 Range/Units Prothrombin Time 12.2 H 9.3-11.8 sec Prothrombin Time INR 1.17 H 0.9-1.15 Activated Partial Thromboplast Time 30.5 24.5-34.5 SEC Urine Color Light-yellow Yellow Urine Clarity Turbid H Clear Urine pH 7.0 5.0-9.0 Urine Specific [place] 1.015 1.001-1.035 Urine Protein Negative Negative Urine Ketones Negative Negative Urine Blood Negative Negative /uL Urine Nitrite Negative Negative Urine Bilirubin Negative Negative Urine Urobilinogen Normal Negative mg/dL Urine Leukocyte Esterase Negative Negative /uL Urine RBC 2 0 - 4 /hpf Urine Microscopic WBC 3 0-5 /HPF Urine Squamous Epithelial Cells Few <5 /hpf Urine Amorphous Crystals Few None Seen /hpf Urine Bacteria Few H None Seen /hpf Urine Mucus Few None Seen Urine Glucose Normal Normal mg/dL Urine Opiates Screen Neg NEGATIVE Urine Fentanyl Screen Neg NEGATIVE Urine Barbiturates Screen Neg NEGATIVE Urine Phencyclidine Screen Neg NEGATIVE Urine Amphetamines Screen Neg NEGATIVE Urine Benzodiazepines Screen Neg NEGATIVE Urine Cocaine Screen Neg NEGATIVE Urine Cannabinoids Screen Neg NEGATIVE White Blood Count 2.6 L 4.4-10.8 10^3/uL Red Blood Count 3.84 L 4.0-5.20 10^6/uL Hemoglobin 11.8 L 12.2-16.2 g/dL Hematocrit 35.4 L 36.0-46.0 % Mean Corpuscular Volume 92.2 80.0-100.0 fL Mean Corpuscular Hemoglobin 30.8 28.0-32.0 pg Mean Corpuscular Hemoglobin Concent 33.4 32.0-36.0 g/dL Red Cell Distribution Width 15.3 H 11.8-14.3 % Platelet Count 211 140-450 10^3/uL Mean Platelet Volume 7.9 6.9-10.8 fL Neutrophils (%) (Auto) 37.3 37.0-80.0 % Lymphocytes (%) (Auto) 34.4 10.0-50.0 % Monocytes (%) (Auto) 13.7 H 0.0-12.0 % Eosinophils (%) (Auto) 12.8 H 0.0-7.0 % Basophils (%) (Auto) 1.8 0.0-2.0 % Neutrophils # (Auto) 1.0 L 1.6-8.6 10 ^3/uL Lymphocytes # (Auto) 0.9 0.4-5.4 10 ^3/uL Monocytes # (Auto) 0.4 0-1.3 10 ^3/uL Eosinophils # (Auto) 0.3 0-0.8 10 ^3/uL Basophils # (Auto) 0 0-0.2 10 ^3/uL Nucleated Red Blood Cells 0.1 % Erythrocyte Sedimentation Rate 8 0-20 mm/hr Sodium Level 141 136-145 mmol/L Potassium Level 3.4 L 3.5-5.1 mmol/L Chloride Level 106 98-107 mmol/L Carbon Dioxide Level 26 20-31 mmol/L Anion Gap 9 5-15 Blood Urea Nitrogen 6 L 9-23 mg/dL Creatinine 0.64 0.550-1.02 mg/dL Glomerular Filtration Rate Calc 89 >90 mL/min BUN/Creatinine Ratio 9.4 L 10.0-20.0 Serum Glucose 89 74-106 mg/dL Calcium Level 8.9 8.7-10.4 mg/dL Magnesium Level 2.3 1.6-2.6 mg/dL Total Bilirubin 0.5 0.2-1.0 mg/dL Aspartate Amino Transferase (AST) 12 L 13-40 U/L Alanine Aminotransferase (ALT) 11 7-40 U/L Alkaline Phosphatase 69 46-116 U/L C-Reactive Protein High Sensitivity 0.06 <1.0 mg/dL B-Type Natriuretic Peptide 25.75 0-100 pg/mL Total Protein 5.4 L 5.7-8.2 g/dL Albumin 3.8 3.2-4.8 g/dL Hemoglobin A1c 4.8 <5.7 % A1C Triglycerides Level 100 < 150 mg/dL Cholesterol Level 187 < 200 mg/dL LDL Cholesterol 107 H < 100 mg/dL HDL Cholesterol 60 H 40-59 mg/dL Assessment Preprocedural cardiovascular examination Kycazlfr-zz-qseaup cervical spinal stenosis History of transverse myelitis Hypokalemia Borderline dyslipidemia, newly diagnosed Plan/Recommendation (Dr. Valdez) Transthoracic echocardiogram revealed EF 70% with grossly normal valves. Revised cardiac risk index (Ray criteria): Class I at 3.9% risk of , [place] or cardiac arrest. Patient has no underlying history of congestive heart failure, coronary artery disease, and has a fair functional capacity. Per Cardiology standpoint, the patient is at an acceptable-risk for moderate-risk surgery. There is no additional cardiac workup indicated prior to surgery. Thank you for allowing us to care for this patient. Please call with any questions or concerns. This medical document was created using an electronic medical record system with voice recognition software and computerized dictation system. Although this document has been carefully reviewed, there might still be some phonetic and typographical errors. Occasional wrong-word or ``sound-alike substitutions may have occurred due to the inherent limitations of voice recognition software. These areas are purely typographical due to imperfections of the software programs and do not reflect any compromise in the patient's medical care. Please read the chart carefully and recognize, using context, where these substitutions have occurred. Plan discussed with: Patient, Other NYHA Physical activity limitations: NA Date of Service: Mar 28, 2025 Billing Provider: JB MATHIS Cardiology Common Codes: 92118-[id number] INP/OBS CARE (High) JB MATHIS Mar 28, 2025 16:59
--- NOTE | 2025-03-28 23:50 | DVHINCON2 ---
Date Seen: Mar 28, 2025 Referring Physician DEMARCUS Edmondson Reason for Consultation Cardiac risk stratification History of Present Illness This is a 79-year-old female with a PMH of transverse myelitis, severe cervical spinal stenosis, and severe thoracic spine stenosis with radiculopathy who presented to the ED with a complaint of bilateral lower/upper extremity paresthesia since December 2024 and progressively getting worse during the past two weeks. She has been diagnosed with tgjvtbyd-mi-jkgbtx cervical spine stenosis and impingement of nerve in all levels. Cardiology consulted for cardiac risk stratification prior to cervical spine surgery. Denies chest pain, palpitations, diaphoresis, SOB, dizziness, or syncopal events. Denies exertional angina or dyspnea on exertion. The patient ambulates with the assistance of a walker stating she can go about 20-40 feet at a time without any cardiac symptoms. She underwent a 12 lead electrocardiogram revealing a normal sinus rhythm. Chest x- ray shows mild pulmonary edema. Past Medical History Past medical history reviewed. No other significant than mentioned above. Past Surgical History Past surgical history reviewed. No other significant than mentioned above. Family History: Patient reports no known family medical history. Allergies: Coded Allergies: NO KNOWN ALLERGIES (Unverified , 01/05/25) Home Meds Active Scripts Gabapentin (Gabapentin) 100 Mg Cap, 1 CAP PO TID for 30 Days, #90 CAP 2 Refills Prov:ELIZABETH HDZ RESIDENT 01/13/25 Current Medications Current Medications Medications (Trade) Dose Ordered Sig/Wendy Route PRN Reason Start Time Stop Time Status Last Admin Enoxaparin Sodium (Lovenox) 40 mg DAILY SC 03/28/25 10:00 Furosemide (Lasix Injection) 20 mg BIDD IV 03/28/25 12:00 03/28/25 13:10 Review of Systems Constitutional: No symptom reported Ears, Nose, & Throat: No symptom reported Eyes: No symptom reported Neurological: No symptoms reported Pulmonary/Respiratory: No symptom reported Cardiovascular: No symptom reported Gastrointestinal: No symptom reported Genitourinary: No symptom reported Musculoskeletal: Upper/lower extremity paresthesia Skin: No symptom reported Psychiatric: No symptom reported Endocrine: No symptom reported Hemotologic/Lymphatic: No symptom reported Vital Signs Vital Signs Date Time Temp Pulse Resp B/P (MAP) Pulse Ox O2 Delivery O2 Flow Rate FiO2 03/28/25 21:00 97.8 72 18 104/66 (79) 98 97.8 03/28/25 20:00 Room Air* 0 21 Physical Exam GENERAL: Alert and oriented x 3. No acute distress. EYES: PERRL, EOMI. Anicteric. HENT: Moist mucous membranes. LUNGS: Clear to auscultation bilaterally. CARDIOVASCULAR: Regular rate and rhythm. ABDOMEN: Soft, non-tender and non-distended. EXTREMITIES: BLE edema, non-pitting. NEUROLOGIC: No focal neurological deficits. SKIN: Warm, dry. Labs/Diagnostic Data Labs Test 03/28/25 11:00 03/28/25 09:00 03/28/25 05:38 03/27/25 17:25 Range/Units Prothrombin Time 12.2 H 9.3-11.8 sec Prothrombin Time INR 1.17 H 0.9-1.15 Activated Partial Thromboplast Time 30.5 24.5-34.5 SEC Urine Color Light-yellow Yellow Urine Clarity Turbid H Clear Urine pH 7.0 5.0-9.0 Urine Specific [place] 1.015 1.001-1.035 Urine Protein Negative Negative Urine Ketones Negative Negative Urine Blood Negative Negative /uL Urine Nitrite Negative Negative Urine Bilirubin Negative Negative Urine Urobilinogen Normal Negative mg/dL Urine Leukocyte Esterase Negative Negative /uL Urine RBC 2 0 - 4 /hpf Urine Microscopic WBC 3 0-5 /HPF Urine Squamous Epithelial Cells Few <5 /hpf Urine Amorphous Crystals Few None Seen /hpf Urine Bacteria Few H None Seen /hpf Urine Mucus Few None Seen Urine Glucose Normal Normal mg/dL Urine Opiates Screen Neg NEGATIVE Urine Fentanyl Screen Neg NEGATIVE Urine Barbiturates Screen Neg NEGATIVE Urine Phencyclidine Screen Neg NEGATIVE Urine Amphetamines Screen Neg NEGATIVE Urine Benzodiazepines Screen Neg NEGATIVE Urine Cocaine Screen Neg NEGATIVE Urine Cannabinoids Screen Neg NEGATIVE White Blood Count 2.6 L 4.4-10.8 10^3/uL Red Blood Count 3.84 L 4.0-5.20 10^6/uL Hemoglobin 11.8 L 12.2-16.2 g/dL Hematocrit 35.4 L 36.0-46.0 % Mean Corpuscular Volume 92.2 80.0-100.0 fL Mean Corpuscular Hemoglobin 30.8 28.0-32.0 pg Mean Corpuscular Hemoglobin Concent 33.4 32.0-36.0 g/dL Red Cell Distribution Width 15.3 H 11.8-14.3 % Platelet Count 211 140-450 10^3/uL Mean Platelet Volume 7.9 6.9-10.8 fL Neutrophils (%) (Auto) 37.3 37.0-80.0 % Lymphocytes (%) (Auto) 34.4 10.0-50.0 % Monocytes (%) (Auto) 13.7 H 0.0-12.0 % Eosinophils (%) (Auto) 12.8 H 0.0-7.0 % Basophils (%) (Auto) 1.8 0.0-2.0 % Neutrophils # (Auto) 1.0 L 1.6-8.6 10 ^3/uL Lymphocytes # (Auto) 0.9 0.4-5.4 10 ^3/uL Monocytes # (Auto) 0.4 0-1.3 10 ^3/uL Eosinophils # (Auto) 0.3 0-0.8 10 ^3/uL Basophils # (Auto) 0 0-0.2 10 ^3/uL Nucleated Red Blood Cells 0.1 % Erythrocyte Sedimentation Rate 8 0-20 mm/hr Sodium Level 141 136-145 mmol/L Potassium Level 3.4 L 3.5-5.1 mmol/L Chloride Level 106 98-107 mmol/L Carbon Dioxide Level 26 20-31 mmol/L Anion Gap 9 5-15 Blood Urea Nitrogen 6 L 9-23 mg/dL Creatinine 0.64 0.550-1.02 mg/dL Glomerular Filtration Rate Calc 89 >90 mL/min BUN/Creatinine Ratio 9.4 L 10.0-20.0 Serum Glucose 89 74-106 mg/dL Calcium Level 8.9 8.7-10.4 mg/dL Magnesium Level 2.3 1.6-2.6 mg/dL Total Bilirubin 0.5 0.2-1.0 mg/dL Aspartate Amino Transferase (AST) 12 L 13-40 U/L Alanine Aminotransferase (ALT) 11 7-40 U/L Alkaline Phosphatase 69 46-116 U/L C-Reactive Protein High Sensitivity 0.06 <1.0 mg/dL B-Type Natriuretic Peptide 25.75 0-100 pg/mL Total Protein 5.4 L 5.7-8.2 g/dL Albumin 3.8 3.2-4.8 g/dL Hemoglobin A1c 4.8 <5.7 % A1C Triglycerides Level 100 < 150 mg/dL Cholesterol Level 187 < 200 mg/dL LDL Cholesterol 107 H < 100 mg/dL HDL Cholesterol 60 H 40-59 mg/dL Assessment Preprocedural cardiovascular examination. Hfpuuvew-ux-jwesdr cervical spinal stenosis. History of transverse myelitis. Hypokalemia. Borderline dyslipidemia, newly diagnosed. Plan/Recommendation I agree with your ongoing assessment and care of plan. Patient has been seen by Shilpa Manjarrez NP on my behalf. We have discussed the plan with the patient. Transthoracic echocardiogram revealed EF 70% with grossly normal valves. Revised cardiac risk index (Ray criteria): Class I at 3.9% risk of , [place] or cardiac arrest. Patient has no underlying history of congestive heart failure, coronary artery disease, and has a fair functional capacity. Per Cardiology standpoint, the patient is at an acceptable-risk for moderate- risk surgery. There is no additional cardiac workup indicated prior to surgery. Additional plan as per the hospital course. Plan discussed with: Patient NYHA Physical activity limitations: NA Date of Service: Mar 28, 2025 Billing Provider: SHELBY ARAGON MD Cardiology Common Codes: [id number] INP/OBS CARE (High) Cardiology Consultation Codes: [id number] CONSULT <45MIN SHELBY ARAGON MD Mar 28, 2025 23:50
[2025-03-29] VITALS (10 sets, daily range): BP systolic 63–124; BP diastolic 63–98; PULSE 67–89; RESP 16–20; TEMP 97–98.5; O2SAT 95–97
[2025-03-29 06:35] LABS: Hematocrit 36.1 % (36.0-46.0); Hemoglobin 12.1 g/dL (12.2-16.2); Mean Corpuscular Hemoglobin 30.7 pg (28.0-32.0); Mean Corpuscular Volume 91.6 fL (80.0-100.0); Nucleated Red Blood Cells % 0.9 %
[2025-03-29 06:58] LABS: Anion Gap 11 (5-15); Calcium 9.0 mg/dL (8.7-10.4); Carbon Dioxide 25 mmol/L (20-31); Chloride 104 mmol/L (98-107); Sodium 140 mmol/L (136-145)
[2025-03-29 07:00] LABS: Potassium 3.4 mmol/L (3.5-5.1)
[2025-03-29 07:04] LABS: BUN/Creatinine Ratio 10.9 (10.0-20.0); Glucose 85 mg/dL (74-106)
[2025-03-29 07:16] LABS: Blood Urea Nitrogen 7 mg/dL (9-23)
--- NOTE | 2025-03-29 08:52 | ECG ---
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
--- NOTE | 2025-03-29 18:42 | DVHPNRES ---
Progress Note Date Seen: Mar 29, 2025 Resident Creating Document: BHARAT NELSON RESIDENT Medical Necessity Reason Pt with a Central, PICC or Fol: No Subjective Review of Systems This is an 79-year-old female with past medical history of transverse myelitis, severe cervical spine stenosis and severe thoracic spine stenosis. The patient presented to the ED with chief complaint of severe numbness/tingling and stiffness of bilateral hands and mild symptoms on bilateral upper extremities as well. The patient also reported left lower extremity numbness that starts in the lateral left hip and radiates all the way down to the left foot causing numbness and tingling sensation as well. The patient reports that recently she has not been able to grab things with her hands due to numbness and stiffness sensation on bilateral hands and has been very difficult even to eat by her own. The patient was recently admitted to the [facility] on December of 2024 and both cervical and thoracic spine MRI were performed at that time showing multiple levels of bulging disc and nerve impingement in both cervical and thoracic areas. Patient does report that she has an upcoming appointment with Dr. Lee on April 14, 2025. The patient states that symptoms has been getting worse and that is the reason why she will like to get assessed and evaluated once again. Patient denies fever/chills, focal weakness or any neurologic deficits at this time aside from just numbness and tingling sensations. We will consult Dr. Lee (spine surgeon) for further assessment and management. We will admit the patient and do a trial of pregabalin with other pain medications while patient gets assessed by specialist. 03/28/2025 Patient seen at bedside. Patient is alert x3, in no distress, she still complains of tingling sensations in her hands and left lower extremity radiating to the left foot. He denies any fever, chills, nausea, vomiting, headaches, dizziness, constipation, diarrhea. Patient has bilateral pitting edema, advised to keep Patient states that when neck flexs the tingling sensation increases, and gets better when extending the neck. Spine surgeon was consulted, and recommended for cardiac clearance for procedure on Thursday. Cardiology consulted for cardiac clearance. 03/29/2025 Patient seen at bedside. Patient is alert x3, in no distress, she is still complains of mild tingling sensations in her left lower extremity. She denies any nausea, vomiting, dizziness, constipation, diarrhea. Patient had talked to her family about surgery and has agreed to get it done on Thursday. Cardiology was consulted for cardiac clearance, stated that patient is at an acceptable- risk for moderate-risk surgery. Objective vital signs Vital Sign Date Time Temp Pulse Resp B/P (MAP) Pulse Ox O2 Delivery O2 Flow Rate FiO2 03/29/25 16:31 97.6 77 18 114/63 (80) 95 97.6 03/29/25 08:00 Room Air* 0 21 Total Intake and Output 03/28/25 03/28/25 03/29/25 14:59 22:59 06:59 Intake Total 520 ml 400 ml Balance 520 ml 400 ml medications Current Medications Medications Dose Ordered Sig/Wendy Route Start Time Stop Time Status Last Admin Dose Admin Acetaminophen 650 mg Q6HP PRN PO 03/27/25 21:30 Acetaminophen/ Hydrocodone Bitart 1 tab Q4HP PRN PO 03/27/25 21:30 Enoxaparin Sodium 40 mg DAILY SC 03/28/25 10:00 03/29/25 09:20 40 MG Pregabalin 75 mg BID PO 03/27/25 22:00 03/29/25 09:20 75 MG Furosemide 20 mg BIDD IV 03/28/25 12:00 03/29/25 06:00 20 MG Examination General: Patient alert and oriented in person, place and time. Patient following commands. HEENT: Normocephalic, atraumatic, moist mucous membranes Respiratory/pulmonary: Clear lungs bilaterally, vesicular murmurs present in almost all lung vargas, no associated crackles or wheezes. Cardiovascular: Normal heart sounds S1 and S2 with no associated murmurs Abdomen: Abdomen nondistended, there is no pain to palpation in any of the abdominal quadrants, no palpable masses. Extremities: +1 bilateral pitting edema. Patient reports tingling/numbness sensation on bilateral hands and left lower extremity radiating to the left foot Peripheral Pulses: 3+ Radial (R). 3+ Radial (L). 3+ Dorsalis pedis (R). 3+ Dorsalis pedis(L) Skin: No rashes or pruritus, there is no sacral edema present at this time. 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 -start [place]/Tylenol (pain medication) -consulted spine surgeon (Dr. Lee) for possible surgical procedure likely on Thursday -Cardiology consulted, for cardiac clearance -Monitor symptoms or any progression to weakness of any extremity # hypokalemia-repleting, monitor lab # chronic leukopenia-monitor lab PUD PPX: Not indicated DVT PPX: Lovenox 40 mg Goals of care addressed with the patient for more than 27 minutes: Full code status Case discussed with Dr. Guillen, patient and nurse Plan discussed with: Patient Date of Service: Mar 29, 2025 Billing Provider: ERICK GUILLEN MD Common Visit Codes: [id number] INP/OBS CARE(HIGH) BHARAT NELSON RESIDENT Mar 29, 2025 18:41 ERICK GUILLEN MD Mar 30, 2025 00:04
[2025-03-29] MEDS: POTASSIUM EFFERVESENT TAB 25 MEQ PO ONE (21:02)
--- NOTE | 2025-03-29 23:52 | DVHPN2 ---
Progress Note - Dictate Date Seen: Mar 29, 2025 Medical Necessity Reason Pt with a Central, PICC or Fol: No Subjective Patient was seen and evaluated in follow up. Patient is complaining of tingling sensations in her left lower extremity. Patient and family are in agreement with surgery and is scheduled for surgery on Thursday. WBC 2.4, K 3.4. vital signs Vital Sign Date Time Temp Pulse Resp B/P (MAP) Pulse Ox O2 Delivery O2 Flow Rate FiO2 03/29/25 21:00 98.5 75 17 123/69 (87) 96 98.5 03/29/25 20:00 Room Air* 0 21 Total Intake and Output 03/28/25 03/28/25 03/29/25 15:00 23:00 07:00 Intake Total 520 ml 400 ml Balance 520 ml 400 ml medications Current Medications Medications Dose Ordered Sig/Wendy Route Start Time Stop Time Status Last Admin Dose Admin Acetaminophen 650 mg Q6HP PRN PO 03/27/25 21:30 Acetaminophen/ Hydrocodone Bitart 1 tab Q4HP PRN PO 03/27/25 21:30 Enoxaparin Sodium 40 mg DAILY SC 03/28/25 10:00 03/29/25 09:20 40 MG Pregabalin 75 mg BID PO 03/27/25 22:00 03/29/25 09:20 75 MG Furosemide 20 mg BIDD IV 03/28/25 12:00 03/29/25 06:00 20 MG objective GENERAL: Alert and oriented x 3. No acute distress. EYES: PERRL, EOMI. Anicteric. HENT: Moist mucous membranes. LUNGS: Clear to auscultation bilaterally. CARDIOVASCULAR: Regular rate and rhythm. ABDOMEN: Soft, non-tender and non-distended. EXTREMITIES: BLE edema, non-pitting. NEUROLOGIC: No focal neurological deficits. SKIN: Warm, dry. laboratory and microbiology Laboratory Tests 03/29/25 05:30 Test 03/29/25 05:30 Range/Units Serum Glucose 85 74-106 mg/dL Problem List Preprocedural cardiovascular examination. Yvsxvcsf-oj-nnwroc cervical spinal stenosis. History of transverse myelitis. Hypokalemia. Borderline dyslipidemia, newly diagnosed. Assessment/Plan Continued all current supportive medical care. DVT prophylactics. Tylenol and [place] for pain management. Additional plan as per the hospital course. Plan discussed with: Patient SHELBY ARAGON MD Mar 29, 2025 22:13
[2025-03-30] VITALS (7 sets, daily range): BP systolic 106–123; BP diastolic 61–81; PULSE 66–91; RESP 16–18; TEMP 97.2–98.4; O2SAT 95–98
[2025-03-30 08:13] LABS: Hematocrit 36.7 % (36.0-46.0); Hemoglobin 12.5 g/dL (12.2-16.2); Mean Corpuscular Hemoglobin 31.1 pg (28.0-32.0); Mean Corpuscular Volume 91.6 fL (80.0-100.0); Nucleated Red Blood Cells % 0.1 %
[2025-03-30 08:16] LABS: Anion Gap 10 (5-15); Carbon Dioxide 27 mmol/L (20-31); Chloride 105 mmol/L (98-107); Sodium 142 mmol/L (136-145)
[2025-03-30 08:18] LABS: Calcium 9.1 mg/dL (8.7-10.4)
[2025-03-30 08:21] LABS: Potassium 3.2 mmol/L (3.5-5.1)
[2025-03-30 08:22] LABS: BUN/Creatinine Ratio 17.5 (10.0-20.0); Blood Urea Nitrogen 10 mg/dL (9-23); Glucose 87 mg/dL (74-106)
[2025-03-30] MEDS: ACETAMINOPHEN 325 MG TAB PO PRN (08:52)
[2025-03-30] MEDS: POTASSIUM EFFERVESENT TAB 25 MEQ PO ONE (09:05)
[2025-03-30] MEDS: LIDOCAINE 5% TOPICAL PATCH TOP ONE (09:15)
--- NOTE | 2025-03-30 18:26 | DVHPNRES ---
Progress Note Date Seen: Mar 30, 2025 Resident Creating Document: BHARAT NELSON RESIDENT Medical Necessity Reason Pt with a Central, PICC or Fol: No Subjective Review of Systems This is an 79-year-old female with past medical history of transverse myelitis, severe cervical spine stenosis and severe thoracic spine stenosis. The patient presented to the ED with chief complaint of severe numbness/tingling and stiffness of bilateral hands and mild symptoms on bilateral upper extremities as well. The patient also reported left lower extremity numbness that starts in the lateral left hip and radiates all the way down to the left foot causing numbness and tingling sensation as well. The patient reports that recently she has not been able to grab things with her hands due to numbness and stiffness sensation on bilateral hands and has been very difficult even to eat by her own. The patient was recently admitted to the [facility] on December of 2024 and both cervical and thoracic spine MRI were performed at that time showing multiple levels of bulging disc and nerve impingement in both cervical and thoracic areas. Patient does report that she has an upcoming appointment with Dr. Lee on April 14, 2025. The patient states that symptoms has been getting worse and that is the reason why she will like to get assessed and evaluated once again. Patient denies fever/chills, focal weakness or any neurologic deficits at this time aside from just numbness and tingling sensations. We will consult Dr. Lee (spine surgeon) for further assessment and management. We will admit the patient and do a trial of pregabalin with other pain medications while patient gets assessed by specialist. 03/28/2025 Patient seen at bedside. Patient is alert x3, in no distress, she still complains of tingling sensations in her hands and left lower extremity radiating to the left foot. He denies any fever, chills, nausea, vomiting, headaches, dizziness, constipation, diarrhea. Patient has bilateral pitting edema, advised to keep Patient states that when neck flexs the tingling sensation increases, and gets better when extending the neck. Spine surgeon was consulted, and recommended for cardiac clearance for procedure on Thursday. Cardiology consulted for cardiac clearance. 03/29/2025 Patient seen at bedside. Patient is alert x3, in no distress, she is still complains of mild tingling sensations in her left lower extremity. She denies any nausea, vomiting, dizziness, constipation, diarrhea. Patient had talked to her family about surgery and has agreed to get it done on Thursday. Cardiology was consulted for cardiac clearance, stated that patient is at an acceptable- risk for moderate-risk surgery. 03/30/25 Patient seen at bedside. Patient is alert x3, no distress but still complains of tingling sensations in her left lower extremity, bilateral hands. She denies any nausea, vomiting, dizziness. She has had a bowel movement today and complains of mild right shoulder pain for which lidocaine patch was given. patient is getting spinal surgery tomorrow. Objective vital signs Vital Sign Date Time Temp Pulse Resp B/P (MAP) Pulse Ox O2 Delivery O2 Flow Rate FiO2 03/30/25 16:38 97.2 83 18 123/65 (84) 96 97.2 03/30/25 08:00 Room Air* 0 21 Total Intake and Output 03/29/25 03/29/25 03/30/25 15:00 23:00 07:00 Intake Total 1150 ml 660 ml Balance 1150 ml 660 ml medications Current Medications Medications Dose Ordered Sig/Wendy Route Start Time Stop Time Status Last Admin Dose Admin Acetaminophen 650 mg Q6HP PRN PO 03/27/25 21:30 03/30/25 08:52 650 MG Acetaminophen/ Hydrocodone Bitart 1 tab Q4HP PRN PO 03/27/25 21:30 Enoxaparin Sodium 40 mg DAILY SC 03/28/25 10:00 03/30/25 08:54 40 MG Pregabalin 75 mg BID PO 03/27/25 22:00 03/30/25 08:52 75 MG Furosemide 20 mg BIDD IV 03/28/25 12:00 03/30/25 05:51 20 MG Examination General: Patient alert and oriented in person, place and time. Patient following commands. HEENT: Normocephalic, atraumatic, moist mucous membranes Respiratory/pulmonary: Clear lungs bilaterally, vesicular murmurs present in almost all lung vargas, no associated crackles or wheezes. Cardiovascular: Normal heart sounds S1 and S2 with no associated murmurs Abdomen: Abdomen nondistended, there is no pain to palpation in any of the abdominal quadrants, no palpable masses. Extremities: +1 bilateral pitting edema. Patient reports tingling/numbness sensation on bilateral hands and left lower extremity radiating to the left foot Peripheral Pulses: 3+ Radial (R). 3+ Radial (L). 3+ Dorsalis pedis (R). 3+ Dorsalis pedis(L) Skin: No rashes or pruritus, there is no sacral edema present at this time. 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 -start [place]/Tylenol (pain medication) -consulted spine surgeon (Dr. Lee) for possible surgical procedure tomorrow -Cardiology consulted, for cardiac clearance -Monitor symptoms or any progression to weakness of any extremity # hypokalemia-repleting, monitor lab # chronic leukopenia-monitor lab PUD PPX: Not indicated DVT PPX: Lovenox 40 mg Goals of care addressed with the patient for more than 27 minutes: Full code status Case discussed with Dr. Guillen, patient and nurse Plan discussed with: Patient Date of Service: Mar 30, 2025 Billing Provider: ERICK GUILLEN MD Common Visit Codes: [id number] INP/OBS CARE(HIGH) BHARAT NELSON RESIDENT Mar 30, 2025 18:26 ERICK GUILLEN MD Mar 30, 2025 22:32
[2025-03-30] MEDS: POTASSIUM CHL 20MEQ/100ML 100 ML IV ONE (20:04)
--- NOTE | 2025-03-30 23:21 | DVHPN2 ---
Progress Note - Dictate Date Seen: Mar 30, 2025 Medical Necessity Reason Pt with a Central, PICC or Fol: No Subjective Patient was seen and evaluated in follow up. Patient is complaining of persisting tingling sensations in her left lower extremity. WBC 2.6, K 3.2. Electrolytes are being replaced. vital signs Vital Sign Date Time Temp Pulse Resp B/P (MAP) Pulse Ox O2 Delivery O2 Flow Rate FiO2 03/30/25 09:00 98.4 91 18 120/65 (83) 97 98.4 03/30/25 08:00 Room Air* 0 21 Total Intake and Output 03/29/25 03/29/25 03/30/25 15:00 23:00 07:00 Intake Total 1150 ml 660 ml Balance 1150 ml 660 ml medications Current Medications Medications Dose Ordered Sig/Wendy Route Start Time Stop Time Status Last Admin Dose Admin Acetaminophen 650 mg Q6HP PRN PO 03/27/25 21:30 03/30/25 08:52 650 MG Acetaminophen/ Hydrocodone Bitart 1 tab Q4HP PRN PO 03/27/25 21:30 Enoxaparin Sodium 40 mg DAILY SC 03/28/25 10:00 03/30/25 08:54 40 MG Pregabalin 75 mg BID PO 03/27/25 22:00 03/30/25 08:52 75 MG Furosemide 20 mg BIDD IV 03/28/25 12:00 03/30/25 05:51 20 MG objective GENERAL: Alert and oriented x 3. No acute distress. EYES: PERRL, EOMI. Anicteric. HENT: Moist mucous membranes. LUNGS: Clear to auscultation bilaterally. CARDIOVASCULAR: Regular rate and rhythm. ABDOMEN: Soft, non-tender and non-distended. EXTREMITIES: BLE edema, non-pitting. NEUROLOGIC: No focal neurological deficits. SKIN: Warm, dry. laboratory and microbiology Laboratory Tests 03/30/25 05:44 Test 03/30/25 05:44 Range/Units Serum Glucose 87 74-106 mg/dL Problem List Preprocedural cardiovascular examination. Yniardzu-rj-geyxth cervical spinal stenosis. History of transverse myelitis. Hypokalemia. Borderline dyslipidemia, newly diagnosed. Assessment/Plan Continued all current supportive medical care. DVT prophylactics. Diuretics with Lasix. [place] for pain management. Additional plan as per the hospital course. Plan discussed with: Patient SHELBY ARAGON MD Mar 30, 2025 13:03
[2025-03-31] VITALS (7 sets, daily range): BP systolic 111–175; BP diastolic 53–81; PULSE 61–94; RESP 14–20; TEMP 97.4–98.6; O2SAT 94–100
[2025-03-31 06:25] LABS: Hematocrit 36.6 % (36.0-46.0); Hemoglobin 12.3 g/dL (12.2-16.2); Mean Corpuscular Hemoglobin 30.8 pg (28.0-32.0); Mean Corpuscular Volume 91.7 fL (80.0-100.0)
[2025-03-31 06:42] LABS: Anion Gap 10 (5-15); Carbon Dioxide 27 mmol/L (20-31); Chloride 102 mmol/L (98-107); Potassium 3.5 mmol/L (3.5-5.1); Sodium 139 mmol/L (136-145)
[2025-03-31 06:43] LABS: Calcium 9.2 mg/dL (8.7-10.4)
[2025-03-31 06:48] LABS: BUN/Creatinine Ratio 14.3 (10.0-20.0); Blood Urea Nitrogen 10 mg/dL (9-23); Glucose 93 mg/dL (74-106)
[2025-03-31 06:49] LABS: Magnesium 2.2 mg/dL (1.6-2.6)
[2025-03-31] MEDS ORDERED: KETAMINE 50mg/ML 1ml syringe ONE (06:52)
[2025-03-31] MEDS ORDERED: HYDROmorphone HCL 2 MG/ML VL/or syr ONE (06:52)
[2025-03-31] MEDS ORDERED: fentaNYL CITRATE 100 MCG/2 ML VL ONE (06:52)
[2025-03-31] MEDS ORDERED: PROPOFOL 10 MG/ML 20 ML IV ONE ×2 (06:53→10:01)
[2025-03-31] MEDS ORDERED: LIDOCAINE 2% TOPICAL JELLY 5 ML URJT TOP ONE (06:53)
[2025-03-31] MEDS ORDERED: ONDANSETRON HCL 4 MG/2 ML VIAL ONE (06:53)
[2025-03-31] MEDS ORDERED: MIDAZOLAM HCL 2MG/2ML 2ml VIAL (1mg/ml) ONE (06:53)
[2025-03-31] MEDS ORDERED: SODIUM CHLORIDE LOCK 10 ML ONE (06:53)
[2025-03-31] MEDS ORDERED: ROCURONIUM 10MG/ML 10ML VIAL IV ONE (06:53)
[2025-03-31] MEDS ORDERED: LIDOCAINE 1% INJ PF 5ML AMP ONE (06:53)
[2025-03-31] MEDS ORDERED: fentaNYL CITRATE 5 ML ONE ×2 (06:53→10:15)
[2025-03-31] MEDS: VANCOMYCIN HCL 1000 MG VL ONE (07:11)
[2025-03-31] MEDS: ceFAZolin 2 GM/D5W50ml 50 ML IV ONE (07:11)
[2025-03-31] MEDS: TRANEXAMIC ACID 20 ML ONE (07:12)
[2025-03-31] MEDS: METOCLOPRAMIDE HCL 5MG/ml INJ 2ml VIAL IV ONE (07:15)
[2025-03-31] MEDS: KETOROLAC TROMETH 30 MG/ML 1ML VIAL IV ONE (07:15)
[2025-03-31] MEDS ORDERED: HYDROmorphone HCL 2 MG/ML VL/or syr IV PRN ×2 (07:15)
[2025-03-31] MEDS ORDERED: MORPHINE SULFATE 4 MG/ML SYR/VIAL IV PRN (07:15)
--- NOTE | 2025-03-31 07:34 | PRN ---
Misceleneous Note Note Note Surgical/procedural interval history and physical note Current H and P was reviewed. The patient was reexamined. Re-evaluation of the patient confirms the necessity for the scheduled procedure. No change has occurred in the patient's condition since the H and P/ spine consult was complete no less than 30 days ago. Patient has bilateral foot numbness, normally walks with a walker since May only short distances due to extreme fatigue. No history of any trauma to the neck no neck pain, patient is dropping items unable to hold utensils or coughing. Patient also reports that her legs will buckle when she walks and give out. Patient is agreeable to accept blood an emergency basis Physicians verification of informed consent The patient was counseled regarding the procedure, its indications, risks, potential complications, and alternatives. The risks/benefits/alternatives of surgery were explained to the patient in detail including but not limited to , stroke, paralysis, myocardial infarction, bleeding, infection, complications of anesthesia (dry mouth, sore throat, dental damage, respiratory depression, blindness), postoperative infection, incomplete relief of symptoms, recurrence of symptoms, damage to blood vessels, nerves and tendons, pulmonary embolism and possible need for repeat surgery in the future. Pain, damage to surrounding soft tissue structures, need for reoperation or future surgery, persistent pain/disability/deformity, bone graft collapse or extrusion of interbody device, instrumentation failure, need for instrumentation removal, dural tear, temporary or permanent nerve root damage, deep vein thrombosis, pulmonary embolism, were described to the patient in detail and the patient wishes to proceed. No guarantee of surgical outcome/improvement was implied. All of the questions were answered thoroughly, patient was agreeable to proceed and consents were obtained. Physicians verification of informed consent for blood transfusion There is a reasonable possibility that blood transfusions will be necessary as a result of the patient's procedure. I have discussed the following with the patient/patient's legal outside dealer sales representative. An explanation of benefits and risks of the transfusion of blood or blood products and possible alternatives. All questions have been answered to the patient's or they are legal representatives satisfaction. Informed consent -The patient has been informed of: -The nature of the proposed care, treatment, services, medications, interventions or procedures. -Potential benefits, risks or side effects, including potential problems related to the procedure. -The likelihood of achieving care treatment and Service goals -Possible alternatives to the procedure/proposed care, treatment and service. -The relative risks, benefits and side effects related to alternatives, including possible results of not receiving care, treatment and services. -When indicated, any limitations on the confidentiality of the informed leaning from or about the patient. -if appropriate, the risks, benefits and alternatives of the drugs to be used for sedation/analgesia including moderate sedation. -if appropriate, patient has been provided information on the risks, benefits and alternatives to the transfusion of blood and/or blood products. -if appropriate, the patient has been provided information regarding the Ernie Patrick blood act. Call with questions Simeon Edmondson [facility] Orthopaedic Spine Surgery nurse practitioner For Dr Dilcia Lee Patient was examined, chart reviewed, labs evaluated, and diagnostic studies and findings analyzed. Case was discussed with Dr. Uriel Lee who formulated the plan of care. This medical document was created using an electronic medical record system with [employer] dictation system. Although this document has been carefully reviewed, there might still be some phonetic and typographical errors. These areas are purely typographical due to imperfections of the software programs, and do not reflect any compromise in the patient's medical care. JOHN EDMONDSON NP Mar 31, 2025 07:34
[2025-03-31] MEDS ORDERED: MORPHINE SULFATE INJ 2 MG/ml SYRG IV PRN ×3 (07:57→10:45)
[2025-03-31 08:41] LABS: Total Cells Counted 100.0 (100)
[2025-03-31] MEDS ORDERED: SUGAMMADEX 200mg/2ml Vial (100MG/ML) IV ONE (10:26)
[2025-03-31] MEDS ORDERED: ceFAZolin 1GM/50ML 50 ML IV SCH ×2 (10:45→14:00)
[2025-03-31] MEDS ORDERED: HYDROcodone-ACET 10/325MG TAB PO PRN (10:45)
[2025-03-31] MEDS ORDERED: ONDANSETRON HCL 4 MG/2 ML VIAL IV PRN (10:45)
[2025-03-31] MEDS ORDERED: NITROGLYCERIN 0.4 MG SL TAB SL PRN (10:45)
--- NOTE | 2025-03-31 10:45 | DVHOP2 ---
Operative Report - 2 Report Details Date: 03/31/25 Preop Diagnosis: cervical spinal stenosis causing myeloradiculopathy Postop Diagnosis: same Surgeon: Uriel Hurd MD Valet Parker: Hayley unger NP Anesthesiologist: Brian Anesthesia: General Consent: The patient was informed of the risks and benefits of the procedure. These include but are not limited to complications of anesthesia, postoperative infection, incomplete relief of symptoms, recurrence of symptoms, damage to blood vessels, nerves and tendons, deep venous thrombosis, pulmonary embolism and possible need for repeat surgery in the future. Name of Procedure Performed see detailed note Procedure Details Procedure Details: Pre Op Diagnosis: 1. Cervical Degenerative Disk Disease and Severe Spinal Stenosis Causing myelopathy and progressive neurologic deficit Post Op Diagnosis: 1. Cervical Degenerative Disk Disease and Spinal Stenosis Causing myelopathy and progressive neurologic deficit Procedure: Cervical 3 to 4 anterior cervical discectomy with Cervical 3-4 foraminotomies and facetectomies to decompression the spinal canal and Cervical 4 nerve roots Cervical 4 to 5 anterior cervical discectomy with Cervical 4-5 foraminotomies and facetectomies to decompression the spinal canal and Cervical 5 nerve roots Cervical 5 to 6 anterior cervical discectomy with Cervical 5-6 foraminotomies and facetectomies to decompression the spinal canal and Cervical 6 nerve roots Cervical 3-6 anterior cervical Fusion Cervical 3-6 anterior cervical instrumentation with freestanding cages Cervical 3-4 placement of allograft prosthetic device Cervical 4-5 placement of allograft prosthetic device Cervical 5-6 placement of allograft prosthetic device Surgeon: Uriel Hurd MD Anesthesia: General Assist: Hayley Unger NP Fluids and EBL: see anesthesia note Procedure Note: The patient was seen in the Pre-anesthesia Care Unit and the site of the incision was initialed by me with a felt tipped marker. All questions by the patient were answered to the satisfaction of the patient and the chart was reviewed. The patient was taken to the operating room and placed supine on the [facility] Flat top table. General anesthesia was induced. Neuromonitoring leads were placed. A rolled towel was placed between the shoulder blades to hyperextend out the chest which will allow better exposure of the cervical spine. Halter traction to 10 pounds was placed. The arms were padded and adducted to the patients side making sure all pulses in the hands were present. Tape traction was undertaken on the shoulders to give us better radiographic exposure of the distal cervical spine. A gel-pad was placed under the occiput and 5 degrees of extension was placed on the neck without adverse effects to the patient. The anterior neck was prepped and draped. Pre-operative antibiotics were given 30 minutes prior to the start of the procedure. A c-arm fluoroscope was used to lemuel out the incision site. At this time, a time out was taken per usual protocol. A longitudinal incision was chosed due the mulitple number of levels being operated on. the incision was made from the hyoid bone to the cricoid process on the left side jsut anterior to the sternocleidomastoid muscle. Next an incision was made through the skin with a 15 blade scalpel through the subcutaneous tissue down to the platysma. Self-retainers were placed. The platysma was incised along the longitudinal border with a Metzenbaum scissors. Blunt dissection was made through the deep cervical and pre-tracheal fascia taking care to protect the carotid sheath laterally and the Trachea/esophagus medially. The dissection was carried down to the prevertebral fascia. Any crossing vessels were ligated using a vascular clip or coagulated with a bovie. An esophageal retractor was next used to retract the trachea/esophagus and a bent [address] through the anterior annulus of the cervical disk and a lateral C-arm fluoroscopic image was taken to confirm that we were at the correct level. Next, bovie electrocautery was used to expose the bones of cervical 3,4,5,6 and bipolar electrocuatery was used to lift up the Longus colli and capitus muscles. Self Retainers were used to retract the longus colli and capitus muscles bilaterally as well as the trachea/esophagus to the right and the carotid sheath to the left. Smooth thin Black-Belt retractors were placed proximally and distally and a needle was placed again in the anterior annulus of the disk and an image taken to confirm the correct level. At this point, the microscope was wheeled in and an 11 blade scalpel incised the anterior annulus of the cervical 3/4 and 4/5 and 5/6 disks. Next, straight and curved curettes removed the remainder of the disks all the way down to the posterior longitudinal ligament. Carefully, a Damion number one rongeur incised the posterior longitudinal ligament at the lateral end of the above disks and using a micro, blunt tip nerve hook to separate the posterior longitudinal ligament from the dura, alternating 1 mm and 2 mm Kerison rongeurs removed the posterior longitudinal ligament. Next, Kerison 1mm and 2 mm rongeurs were alternated to get under the uncinate processes and undercut them to perform foraminotomies and facetectomies at the cervical 3/4 and 4/5 and 5/6 levels to decompress the central canal and cervical 4,5 and 6 nerve roots. Next the microscope was wheeled away and the c-arm fluoroscope was wheeled into the field and a lateral image was obtained. Increasing size graft trials were used starting at a 5 mm thick size until the proper tension in the disk space and height sikhism obtained. We then placed final free standing cages at C3/4 and 4/5 and 5/6. 6mm at C3/4 and 7mm at C4/5 and C5/6. Satisfactory placement was confirmed in the AP and lateral views using a C-arm fluoroscope. The screws were placed bi cortical to make sure good purchase was achieved due the patient's weak bone. Copious irrigation of the wound with sterile saline and all bleeding was controlled before closure initiated. At this point, a [address] [place] [address] Drain was place deep to the Platysma muscle and the Platysma was approximated with one interrupted 0-Vicryl suture. The subcutaneous tissue was closed with interrupted 2-0 vicryl sutures and the skin was closed with rebeca. Sterile dressings were placed and a cervical collar placed, the patient extubated, transferred to the stretcher and taken to the Recovery Room in unremarkable condition. Other Notes: [id number] Condition Stable Disposition Still a Patient URIEL HURD MD Mar 31, 2025 10:45
--- NOTE | 2025-03-31 13:44 | DVH ---
FLUOROSCOPY TIME: 9 seconds TECHNIQUE: Intraoperative radiographs of the cervical spine were obtained. COMPARISON: XY CHEST XRAY 1 VIEW on DOS: 03/28/25, XY CHEST PORTABLE on DOS: 01/06/25 FINDINGS: Refer to intraoperative report for further evaluation. IMPRESSION: Refer to intraoperative report for further evaluation.
[2025-03-31] MEDS: CYCLOBENZAPRINE HCL 10 MG TAB PO SCH (14:00)
[2025-03-31] MEDS: ceFAZolin 1GM/50ML 50 ML IV SCH (14:06)
[2025-03-31] MEDS: D5W/SOD CHLO 0.9% 1,000 ML IV SCH (14:07)
--- NOTE | 2025-03-31 17:04 | DVHPNRES ---
Progress Note Date Seen: Mar 31, 2025 Resident Creating Document: BHARAT NELSON RESIDENT Medical Necessity Reason Pt with a Central, PICC or Fol: No Subjective Review of Systems This is an 79-year-old female with past medical history of transverse myelitis, severe cervical spine stenosis and severe thoracic spine stenosis. The patient presented to the ED with chief complaint of severe numbness/tingling and stiffness of bilateral hands and mild symptoms on bilateral upper extremities as well. The patient also reported left lower extremity numbness that starts in the lateral left hip and radiates all the way down to the left foot causing numbness and tingling sensation as well. The patient reports that recently she has not been able to grab things with her hands due to numbness and stiffness sensation on bilateral hands and has been very difficult even to eat by her own. The patient was recently admitted to the [facility] on December of 2024 and both cervical and thoracic spine MRI were performed at that time showing multiple levels of bulging disc and nerve impingement in both cervical and thoracic areas. Patient does report that she has an upcoming appointment with Dr. Lee on April 14, 2025. The patient states that symptoms has been getting worse and that is the reason why she will like to get assessed and evaluated once again. Patient denies fever/chills, focal weakness or any neurologic deficits at this time aside from just numbness and tingling sensations. We will consult Dr. Lee (spine surgeon) for further assessment and management. We will admit the patient and do a trial of pregabalin with other pain medications while patient gets assessed by specialist. 03/28/2025 Patient seen at bedside. Patient is alert x3, in no distress, she still complains of tingling sensations in her hands and left lower extremity radiating to the left foot. He denies any fever, chills, nausea, vomiting, headaches, dizziness, constipation, diarrhea. Patient has bilateral pitting edema, advised to keep Patient states that when neck flexs the tingling sensation increases, and gets better when extending the neck. Spine surgeon was consulted, and recommended for cardiac clearance for procedure on Thursday. Cardiology consulted for cardiac clearance. 03/29/2025 Patient seen at bedside. Patient is alert x3, in no distress, she is still complains of mild tingling sensations in her left lower extremity. She denies any nausea, vomiting, dizziness, constipation, diarrhea. Patient had talked to her family about surgery and has agreed to get it done on Thursday. Cardiology was consulted for cardiac clearance, stated that patient is at an acceptable- risk for moderate-risk surgery. 03/30/25 Patient seen at bedside. Patient is alert x3, no distress but still complains of tingling sensations in her left lower extremity, bilateral hands. She denies any nausea, vomiting, dizziness. She has had a bowel movement today and complains of mild right shoulder pain for which lidocaine patch was given. patient is getting spinal surgery tomorrow. 03/31/2025 Patient seen at bedside. Patient is alert x3, patient came back from spinal surgery, still complained of tingling sensations, she denied any nausea, vomiting, dizziness, lower back pain, leg pain. patient underwent cervical 4, 5, 6 foraminotomies and facetectomies. patient is a little drowsy after surgery. Objective vital signs Vital Sign Date Time Temp Pulse Resp B/P (MAP) Pulse Ox O2 Delivery O2 Flow Rate FiO2 03/31/25 17:00 98.6 67 17 175/68 (103) 97 98.6 03/31/25 11:45 Nasal Cannula 2.0 98 Total Intake and Output 03/30/25 03/30/25 03/31/25 15:00 23:00 07:00 Intake Total 900 ml 2100 ml Output Total 600 ml 925 ml Balance 300 ml 1175 ml medications Current Medications Medications Dose Ordered Sig/Wendy Route Start Time Stop Time Status Last Admin Dose Admin Acetaminophen 650 mg Q6HP PRN PO 03/27/25 21:30 03/30/25 08:52 650 MG Acetaminophen/ Hydrocodone Bitart 1 tab Q4HP PRN PO 03/27/25 21:30 Enoxaparin Sodium 40 mg DAILY SC 03/28/25 10:00 03/30/25 08:54 40 MG Pregabalin 75 mg BID PO 03/27/25 22:00 03/30/25 08:52 75 MG Furosemide 20 mg BIDD IV 03/28/25 12:00 03/30/25 17:51 20 MG Dextrose/Sodium Chloride 1,000 ml @ 100 mls/hr Q10H IV 03/31/25 10:45 03/31/25 14:07 100 MLS/HR Ondansetron HCl 4 mg Q4HP PRN IV 03/31/25 10:45 Acetaminophen 650 mg Q6HP PRN PO 03/31/25 10:45 Acetaminophen/ Hydrocodone Bitart 1 tab Q6HP PRN PO 03/31/25 10:45 Morphine Sulfate 1 mg Q4HP PRN IV 03/31/25 10:45 Cyclobenzaprine HCl 10 mg TID PO 03/31/25 14:00 Docusate Sodium 100 mg BID PO 03/31/25 22:00 Cefazolin Sodium 50 ml @ 100 mls/hr Q8HR IV 03/31/25 14:00 04/02/25 06:29 03/31/25 14:06 100 MLS/HR Nitroglycerin 0.4 mg Q5MINP PRN SL 03/31/25 10:45 Morphine Sulfate 2 mg Q30M PRN IV 03/31/25 10:45 Examination General: Patient alert and oriented in person, place and time. Patient following commands. HEENT: Normocephalic, atraumatic, moist mucous membranes Respiratory/pulmonary: Clear lungs bilaterally, vesicular murmurs present in almost all lung vargas, no associated crackles or wheezes. Cardiovascular: Normal heart sounds S1 and S2 with no associated murmurs Abdomen: Abdomen nondistended, there is no pain to palpation in any of the abdominal quadrants, no palpable masses. Extremities: +1 bilateral pitting edema. Patient reports tingling/numbness sensation on bilateral hands and left lower extremity radiating to the left foot Peripheral Pulses: 3+ Radial (R). 3+ Radial (L). 3+ Dorsalis pedis (R). 3+ Dorsalis pedis(L) Skin: No rashes or pruritus, there is no sacral edema present at this time. 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 -start [place]/Tylenol (pain medication) -consulted spine surgeon (Dr. Lee) for possible surgical procedure tomorrow -Cardiology consulted, for cardiac clearance -Monitor symptoms or any progression to weakness of any extremity - patient underwent cervical 4, 5, 6 foraminotomies and facetectomies. # hypokalemia-repleting, monitor lab # chronic leukopenia-monitor lab PUD PPX: Not indicated DVT PPX: Lovenox 40 mg Goals of care addressed with the patient for more than 27 minutes: Full code status Case discussed with Dr. Guillen, patient and nurse Plan discussed with: Patient Date of Service: Mar 31, 2025 Billing Provider: ERICK GUILLEN MD Common Visit Codes: [id number] INP/OBS CARE(HIGH) BHARAT NELSON RESIDENT Mar 31, 2025 17:04 ERICK GUILLEN MD Mar 31, 2025 23:58
[2025-03-31] MEDS: POTASSIUM EFFERVESENT TAB 25 MEQ PO ONE (17:53)
[2025-03-31] MEDS: ACETAMINOPHEN 325 MG TAB PO PRN (18:07)
--- NOTE | 2025-03-31 21:25 | DVHPN2 ---
Progress Note - Dictate Date Seen: Mar 31, 2025 Medical Necessity Reason Pt with a Central, PICC or Fol: No Subjective Patient was seen and evaluated in follow up. Patient underwent cervical 3 to 4, 4 to 5, 5 to 6 anterior cervical discectomy with cervical 3-4, 4-5, 5-6 foraminotomies and facetectomies to decompression the spinal canal and cervical 4 nerve roots, cervical 3-6 anterior cervical instrumentation with freestanding cages, cervical 3-4 placement of allograft prosthetic device, cervical 4-5 and 5-6 placement of allograft prosthetic device. The patient tolerated procedure well. Telemetry reviewed. vital signs Vital Sign Date Time Temp Pulse Resp B/P (MAP) Pulse Ox O2 Delivery O2 Flow Rate FiO2 03/31/25 12:28 97.9 61 18 136/80 (98) 94 97.9 03/31/25 11:45 Nasal Cannula 2.0 98 Total Intake and Output 03/30/25 03/30/25 03/31/25 15:00 23:00 07:00 Intake Total 900 ml 2100 ml Output Total 600 ml 925 ml Balance 300 ml 1175 ml medications Current Medications Medications Dose Ordered Sig/Wendy Route Start Time Stop Time Status Last Admin Dose Admin Acetaminophen 650 mg Q6HP PRN PO 03/27/25 21:30 03/30/25 08:52 650 MG Acetaminophen/ Hydrocodone Bitart 1 tab Q4HP PRN PO 03/27/25 21:30 Enoxaparin Sodium 40 mg DAILY SC 03/28/25 10:00 03/30/25 08:54 40 MG Pregabalin 75 mg BID PO 03/27/25 22:00 03/30/25 08:52 75 MG Furosemide 20 mg BIDD IV 03/28/25 12:00 03/30/25 17:51 20 MG Dextrose/Sodium Chloride 1,000 ml @ 100 mls/hr Q10H IV 03/31/25 10:45 Ondansetron HCl 4 mg Q4HP PRN IV 03/31/25 10:45 Acetaminophen 650 mg Q6HP PRN PO 03/31/25 10:45 Acetaminophen/ Hydrocodone Bitart 1 tab Q6HP PRN PO 03/31/25 10:45 Morphine Sulfate 1 mg Q4HP PRN IV 03/31/25 10:45 Cyclobenzaprine HCl 10 mg TID PO 03/31/25 14:00 Docusate Sodium 100 mg BID PO 03/31/25 22:00 Cefazolin Sodium 50 ml @ 100 mls/hr Q8HR IV 03/31/25 14:00 04/02/25 06:29 Nitroglycerin 0.4 mg Q5MINP PRN SL 03/31/25 10:45 Morphine Sulfate 2 mg Q30M PRN IV 03/31/25 10:45 objective GENERAL: Alert and oriented x 3. No acute distress. EYES: PERRL, EOMI. Anicteric. HENT: Moist mucous membranes. LUNGS: Clear to auscultation bilaterally. CARDIOVASCULAR: Regular rate and rhythm. ABDOMEN: Soft, non-tender and non-distended. EXTREMITIES: BLE edema, non-pitting. NEUROLOGIC: No focal neurological deficits. SKIN: Warm, dry. laboratory and microbiology Laboratory Tests 03/31/25 05:02 Test 03/31/25 05:02 Range/Units Serum Glucose 93 74-106 mg/dL Problem List Preprocedural cardiovascular examination. [id number] cervical spinal stenosis. History of transverse myelitis. Hypokalemia. Borderline dyslipidemia, newly diagnosed. Assessment/Plan Continued all current supportive medical care. IV antibiotics as ordered. [place] for pain management. Additional plan as per the hospital course. Plan discussed with: Patient SHELBY ARAGON MD Mar 31, 2025 13:34
[2025-03-31] MEDS: DOCUSATE SOD 100 MG CAP PO SCH (21:39)
[2025-04-01] VITALS (8 sets, daily range): BP systolic 111–131; BP diastolic 57–78; PULSE 74–90; RESP 16–18; TEMP 97.1–98.1; O2SAT 92–97
[2025-04-01 08:02] LABS: Calcium 9.4 mg/dL (8.7-10.4); Chloride 105 mmol/L (98-107); Potassium 4.3 mmol/L (3.5-5.1); Sodium 141 mmol/L (136-145)
[2025-04-01 08:03] LABS: Anion Gap 9 (5-15); Carbon Dioxide 27 mmol/L (20-31)
[2025-04-01 08:08] LABS: BUN/Creatinine Ratio 12.3 (10.0-20.0); Glucose 94 mg/dL (74-106)
[2025-04-01 08:09] LABS: Blood Urea Nitrogen 7 mg/dL (9-23)
[2025-04-01 08:35] LABS: Hematocrit 35.5 % (36.0-46.0); Hemoglobin 11.7 g/dL (12.2-16.2); Mean Corpuscular Hemoglobin 30.3 pg (28.0-32.0); Mean Corpuscular Volume 92.2 fL (80.0-100.0)
[2025-04-01 09:47] LABS: Total Cells Counted 100.0 (100)
--- NOTE | 2025-04-01 15:12 | DVHPN2 ---
Subjective The patient is seen and examined at bedside. Still complain of pain Reviewed: Care Plan, H&P, Labs, Medications, Previous Orders, Radiology Changes from previous H/P or p: No Changes Eyes: No Pain, No Vision change, No Conjunctivae inflammation, No Eyelid inflammation, No Other, No Redness ENT: No Ear pain, No Ear discharge, No Nose pain, No Nose discharge, No Nose congestion, No Mouth pain, No Mouth swelling, No Throat pain, No Throat swelling, No Other Cardiovascular: No Chest Pain, No Palpitations, No Orthopnea, No Paroxysmal Noc. Dyspnea, No Edema, No Lt Headedness, No Other Respiratory: No Cough, No Dry, No Shortness of breath, No SOB with excertion, No Wheezing, No Hemoptysis, No Pleuritic Pain, No Sputum, No Other Gastrointestinal: No Nausea, No Vomiting, No Abdominal Pain, No Diarrhea, No Constipation, No Melena, No Hematochezia, No Other Genitourinary: No Dysuria, No Frequency, No Incontinence, No Hematuria, No Retention, No Other Musculoskeletal: other (Patient reports bilateral hand stiffness, tingling numbness sensation. Patient also reports left lower extremity numbness that radiates down to the left foot associated with tingling and numbness sensation as well.); No neck pain, No shoulder pain, No arm pain, No back pain, No hand pain, No leg pain, No foot pain Skin: No Rash, No Lesions, No Jaundice, No Bruising, No Other Objective Vitals Vital Signs Date Time Temp Pulse Resp B/P (MAP) Pulse Ox O2 Delivery O2 Flow Rate FiO2 04/01/25 12:45 97.8 82 18 121/61 (81) 95 97.8 04/01/25 08:15 Nasal Cannula* 2 28 Intake/Output Intake and Output 04/01/25 07:00 Intake Total 3470 ml Output Total 8 ml Balance 3462 ml Intake Oral 2820 ml IV Total 650 ml Drainage Total 8 ml # Voids 4 # Bowel Movements 2 General Appearance: Alert, Cooperative, No acute distress HEENT: Atraumatic, PERRLA, EOMI, Mucous membr. moist/pink Neck: Supple Cardiovascular: Regular rate, Normal S1, Normal S2, No murmurs, Gallops, Rubs Abdomen: Normal bowel sounds, Soft, No tenderness Neuro: Cranial nerves 3-12 NL Psych/Mental Status: Mental status NL Medications Current Medications Medications Dose Ordered Sig/Wendy Route Start Time Stop Time Status Last Admin Dose Admin Acetaminophen 650 mg Q6HP PRN PO 03/27/25 21:30 03/30/25 08:52 650 MG Acetaminophen/ Hydrocodone Bitart 1 tab Q4HP PRN PO 03/27/25 21:30 Enoxaparin Sodium 40 mg DAILY SC 03/28/25 10:00 04/01/25 10:07 40 MG Pregabalin 75 mg BID PO 03/27/25 22:00 03/31/25 21:39 75 MG Furosemide 20 mg BIDD IV 03/28/25 12:00 04/01/25 05:22 20 MG Dextrose/Sodium Chloride 1,000 ml @ 100 mls/hr Q10H IV 03/31/25 10:45 04/01/25 05:21 100 MLS/HR Ondansetron HCl 4 mg Q4HP PRN IV 03/31/25 10:45 Acetaminophen 650 mg Q6HP PRN PO 03/31/25 10:45 03/31/25 18:07 650 MG Acetaminophen/ Hydrocodone Bitart 1 tab Q6HP PRN PO 03/31/25 10:45 Morphine Sulfate 1 mg Q4HP PRN IV 03/31/25 10:45 Cyclobenzaprine HCl 10 mg TID PO 03/31/25 14:00 04/01/25 14:17 10 MG Docusate Sodium 100 mg BID PO 03/31/25 22:00 04/01/25 10:06 100 MG Cefazolin Sodium 50 ml @ 100 mls/hr Q8HR IV 03/31/25 14:00 04/02/25 06:29 04/01/25 14:17 100 MLS/HR Nitroglycerin 0.4 mg Q5MINP PRN SL 03/31/25 10:45 Morphine Sulfate 2 mg Q30M PRN IV 03/31/25 10:45 Laboratory Results Laboratory Tests 04/01/25 04:36 Chemistry Test 04/01/25 04:36 Calcium Level 9.4 mg/dL (8.7-10.4) Urinalysis Test 03/28/25 09:00 Urine Color Light-yellow (Yellow) Urine Clarity Turbid (Clear) H Urine pH 7.0 (5.0-9.0) Urine Specific [place] 1.015 (1.001-1.035) Urine Protein Negative (Negative) Urine Ketones Negative (Negative) Urine Blood Negative /uL (Negative) Urine Nitrite Negative (Negative) Urine Bilirubin Negative (Negative) Urine Urobilinogen Normal mg/dL (Negative) Urine Leukocyte Esterase Negative /uL (Negative) Urine RBC 2 /hpf (0 - 4) Urine Microscopic WBC 3 /HPF (0-5) Urine Squamous Epithelial Cells Few /hpf (<5) Urine Amorphous Crystals Few /hpf (None Seen) Urine Bacteria Few /hpf (None Seen) H Urine Mucus Few (None Seen) Urine Glucose Normal mg/dL (Normal) Labs and/or images reviewed: Labs reviewed by me Assessment/Plan Assessment/Plan #Acute on chronic cervical and thoracic spine stenosis with radiculopathy #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 -start [place]/Tylenol (pain medication) -consulted spine surgeon (Dr. Lee) for possible surgical procedure tomorrow -Cardiology consulted, for cardiac clearance -Monitor symptoms or any progression to weakness of any extremity - patient underwent cervical 4, 5, 6 foraminotomies and facetectomies. # hypokalemia-repleting, monitor lab # chronic leukopenia-monitor lab PUD PPX: Not indicated DVT PPX: Lovenox 40 mg Plan discussed with: Patient Date of Service: Apr 01, 2025 Billing Provider: ERICK GUILLEN MD Common Visit Codes: [id number] INP/OBS CARE(HIGH) ERICK GUILLEN MD Apr 01, 2025 15:12
--- NOTE | 2025-04-01 23:52 | DVHPN2 ---
Progress Note - Dictate Date Seen: Apr 01, 2025 Medical Necessity Reason Pt with a Central, PICC or Fol: No Subjective Patient was seen and evaluated in follow up. [place] is complaining of neck pain. Dressings are C/D/I. WBC 2.8. Telemetry reviewed. vital signs Vital Sign Date Time Temp Pulse Resp B/P (MAP) Pulse Ox O2 Delivery O2 Flow Rate FiO2 04/01/25 12:45 97.8 82 18 121/61 (81) 95 97.8 04/01/25 08:15 Nasal Cannula* 2 28 Total Intake and Output 03/31/25 03/31/25 04/01/25 15:00 23:00 07:00 Intake Total 2550 ml 920 ml Output Total 0 ml 8 ml Balance 0 ml 2550 ml 912 ml medications Current Medications Medications Dose Ordered Sig/Wendy Route Start Time Stop Time Status Last Admin Dose Admin Acetaminophen 650 mg Q6HP PRN PO 03/27/25 21:30 03/30/25 08:52 650 MG Acetaminophen/ Hydrocodone Bitart 1 tab Q4HP PRN PO 03/27/25 21:30 Enoxaparin Sodium 40 mg DAILY SC 03/28/25 10:00 04/01/25 10:07 40 MG Pregabalin 75 mg BID PO 03/27/25 22:00 03/31/25 21:39 75 MG Furosemide 20 mg BIDD IV 03/28/25 12:00 04/01/25 05:22 20 MG Dextrose/Sodium Chloride 1,000 ml @ 100 mls/hr Q10H IV 03/31/25 10:45 04/01/25 05:21 100 MLS/HR Ondansetron HCl 4 mg Q4HP PRN IV 03/31/25 10:45 Acetaminophen 650 mg Q6HP PRN PO 03/31/25 10:45 03/31/25 18:07 650 MG Acetaminophen/ Hydrocodone Bitart 1 tab Q6HP PRN PO 03/31/25 10:45 Morphine Sulfate 1 mg Q4HP PRN IV 03/31/25 10:45 Cyclobenzaprine HCl 10 mg TID PO 03/31/25 14:00 04/01/25 05:21 10 MG Docusate Sodium 100 mg BID PO 03/31/25 22:00 04/01/25 10:06 100 MG Cefazolin Sodium 50 ml @ 100 mls/hr Q8HR IV 03/31/25 14:00 04/02/25 06:29 04/01/25 05:22 100 MLS/HR Nitroglycerin 0.4 mg Q5MINP PRN SL 03/31/25 10:45 Morphine Sulfate 2 mg Q30M PRN IV 03/31/25 10:45 objective GENERAL: Alert and oriented x 3. No acute distress. EYES: PERRL, EOMI. Anicteric. HENT: Moist mucous membranes. LUNGS: Clear to auscultation bilaterally. CARDIOVASCULAR: Regular rate and rhythm. ABDOMEN: Soft, non-tender and non-distended. EXTREMITIES: BLE edema, non-pitting. NEUROLOGIC: No focal neurological deficits. SKIN: Warm, dry. laboratory and microbiology Laboratory Tests 04/01/25 04:36 Test 04/01/25 04:36 Range/Units Serum Glucose 94 74-106 mg/dL Problem List Preprocedural cardiovascular examination. [id number] cervical spinal stenosis. History of transverse myelitis. Hypokalemia. Borderline dyslipidemia, newly diagnosed. Assessment/Plan Continued all current supportive medical care. Nitro SL. DVT prophylactics. IV antibiotics as ordered. Morphine and [place] for pain management. Additional plan as per the hospital course. Plan discussed with: Patient SHELBY ARAGON MD Apr 01, 2025 14:08
[2025-04-02] VITALS (8 sets, daily range): BP systolic 102–122; BP diastolic 59–75; PULSE 81–106; RESP 12–93; TEMP 97.5–98.5; O2SAT 92–95
--- NOTE | 2025-04-02 16:32 | DVHPNRES ---
Progress Note Date Seen: Apr 02, 2025 Resident Creating Document: BHARAT NELSON RESIDENT Has the PT tested + for MRSA If YES, has PT been informed?: No Medical Necessity Reason Pt with a Central, PICC or Fol: No Subjective Review of Systems This is an 79-year-old female with past medical history of transverse myelitis, severe cervical spine stenosis and severe thoracic spine stenosis. The patient presented to the ED with chief complaint of severe numbness/tingling and stiffness of bilateral hands and mild symptoms on bilateral upper extremities as well. The patient also reported left lower extremity numbness that starts in the lateral left hip and radiates all the way down to the left foot causing numbness and tingling sensation as well. The patient reports that recently she has not been able to grab things with her hands due to numbness and stiffness sensation on bilateral hands and has been very difficult even to eat by her own. The patient was recently admitted to the [facility] on December of 2024 and both cervical and thoracic spine MRI were performed at that time showing multiple levels of bulging disc and nerve impingement in both cervical and thoracic areas. Patient does report that she has an upcoming appointment with Dr. Lee on April 14, 2025. The patient states that symptoms has been getting worse and that is the reason why she will like to get assessed and evaluated once again. Patient denies fever/chills, focal weakness or any neurologic deficits at this time aside from just numbness and tingling sensations. We will consult Dr. Lee (spine surgeon) for further assessment and management. We will admit the patient and do a trial of pregabalin with other pain medications while patient gets assessed by specialist. 03/28/2025 Patient seen at bedside. Patient is alert x3, in no distress, she still complains of tingling sensations in her hands and left lower extremity radiating to the left foot. He denies any fever, chills, nausea, vomiting, headaches, dizziness, constipation, diarrhea. Patient has bilateral pitting edema, advised to keep Patient states that when neck flexs the tingling sensation increases, and gets better when extending the neck. Spine surgeon was consulted, and recommended for cardiac clearance for procedure on Thursday. Cardiology consulted for cardiac clearance. 03/29/2025 Patient seen at bedside. Patient is alert x3, in no distress, she is still complains of mild tingling sensations in her left lower extremity. She denies any nausea, vomiting, dizziness, constipation, diarrhea. Patient had talked to her family about surgery and has agreed to get it done on Thursday. Cardiology was consulted for cardiac clearance, stated that patient is at an acceptable- risk for moderate-risk surgery. 03/30/25 Patient seen at bedside. Patient is alert x3, no distress but still complains of tingling sensations in her left lower extremity, bilateral hands. She denies any nausea, vomiting, dizziness. She has had a bowel movement today and complains of mild right shoulder pain for which lidocaine patch was given. patient is getting spinal surgery tomorrow. 03/31/2025 Patient seen at bedside. Patient is alert x3, patient came back from spinal surgery, still complained of tingling sensations, she denied any nausea, vomiting, dizziness, lower back pain, leg pain. patient underwent cervical 4, 5, 6 foraminotomies and facetectomies. patient is a little drowsy after surgery. 04/02/2025 Patient seen at bedside. Patient is alert x3, in no acute distress but still complains of tingling sensations and numbness in her feet and hands. She tried to stand up yesterday with PT but felt weak and did not. She denied any headaches, nausea, vomiting. Patient states that she is having trouble swallowing , coughing when drinking water and a swallow eval was placed, diet was changed to soft mechanical diet. Objective vital signs Vital Sign Date Time Temp Pulse Resp B/P (MAP) Pulse Ox O2 Delivery O2 Flow Rate FiO2 04/02/25 12:56 97.5 87 20 118/66 (83) 92 97.5 04/02/25 08:10 Nasal Cannula* 2 28 Total Intake and Output 04/01/25 04/01/25 04/02/25 15:00 23:00 07:00 Intake Total 50 ml 750 ml 500 ml Output Total 10 ml Balance 50 ml 740 ml 500 ml medications Current Medications Medications Dose Ordered Sig/Wendy Route Start Time Stop Time Status Last Admin Dose Admin Acetaminophen 650 mg Q6HP PRN PO 03/27/25 21:30 03/30/25 08:52 650 MG Acetaminophen/ Hydrocodone Bitart 1 tab Q4HP PRN PO 03/27/25 21:30 Enoxaparin Sodium 40 mg DAILY SC 03/28/25 10:00 04/01/25 10:07 40 MG Pregabalin 75 mg BID PO 03/27/25 22:00 04/02/25 09:23 75 MG Furosemide 20 mg BIDD IV 03/28/25 12:00 04/02/25 05:52 20 MG Dextrose/Sodium Chloride 1,000 ml @ 100 mls/hr Q10H IV 03/31/25 10:45 04/02/25 12:45 100 MLS/HR Ondansetron HCl 4 mg Q4HP PRN IV 03/31/25 10:45 Acetaminophen 650 mg Q6HP PRN PO 03/31/25 10:45 04/01/25 20:22 650 MG Acetaminophen/ Hydrocodone Bitart 1 tab Q6HP PRN PO 03/31/25 10:45 Morphine Sulfate 1 mg Q4HP PRN IV 03/31/25 10:45 Cyclobenzaprine HCl 10 mg TID PO 03/31/25 14:00 04/02/25 14:47 10 MG Docusate Sodium 100 mg BID PO 03/31/25 22:00 04/02/25 09:23 100 MG Nitroglycerin 0.4 mg Q5MINP PRN SL 03/31/25 10:45 Morphine Sulfate 2 mg Q30M PRN IV 03/31/25 10:45 Examination General: Patient alert and oriented in person, place and time. Patient following commands. Patient appears weak HEENT: Normocephalic, atraumatic, moist mucous membranes, drain placed with bloody fluid Respiratory/pulmonary: Clear lungs bilaterally, vesicular murmurs present in almost all lung vargas, no associated crackles or wheezes. Cardiovascular: Normal heart sounds S1 and S2 with no associated murmurs Abdomen: Abdomen nondistended, there is no pain to palpation in any of the abdominal quadrants, no palpable masses. Extremities: +1 bilateral pitting edema. Patient reports tingling/numbness sensation on bilateral hands and left lower extremity radiating to the left foot Peripheral Pulses: 3+ Radial (R). 3+ Radial (L). 3+ Dorsalis pedis (R). 3+ Dorsalis pedis(L) Skin: No rashes or pruritus, there is no sacral edema present at this time. 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 -start Bogart/Tylenol (pain medication) -consulted spine surgeon (Dr. Lee) for possible surgical procedure tomorrow -Cardiology consulted, for cardiac clearance -Monitor symptoms or any progression to weakness of any extremity - patient underwent cervical 4, 5, 6 foraminotomies and facetectomies. - swallow study ordered, pending - patient switched to mechanical soft diet # hypokalemia-repleting, monitor lab # chronic leukopenia-monitor lab PUD PPX: Not indicated DVT PPX: Lovenox 40 mg Goals of care addressed with the patient for more than 27 minutes: Full code status Case discussed with Dr. Guillen, patient and nurse Plan discussed with: Patient, Other (RN) My Orders My Orders Orders - BHARAT NELSON RESIDENT Procedure Category Date Status Time * Swallow Request ST 04/02/25 Transmitted 15:01 Mechanical Soft Diet DIET 04/02/25 Transmitted Dinner Dietary Evaluation Review Comments: 1) Add cardiac restriction to diet 2) Encourage optimal PO intake 3) Educate patient on the benefit of physical therapy 4) Follow-up with orthopedic surgeon, cardiology, and neurology 5) Continue to monitor I&O, labs, and skin integrity Expected Outcomes/Goals: 1) appetite and labs to improve 2) f/u in 3-5 days Date of Service: Apr 02, 2025 Billing Provider: ERICK GUILLEN MD Common Visit Codes: [id number] INP/OBS CARE(HIGH) BHARAT NELSON Apr 02, 2025 16:32 ERICK GUILLEN MD Apr 03, 2025 10:06
--- NOTE | 2025-04-02 23:55 | DVHPN2 ---
Progress Note - Dictate Date Seen: Apr 02, 2025 Medical Necessity Reason Pt with a Central, PICC or Fol: No Subjective Patient was seen and evaluated in follow up. Patent is complaining of neck pain. Surgical drains are in place. Telemetry reviewed. vital signs Vital Sign Date Time Temp Pulse Resp B/P (MAP) Pulse Ox O2 Delivery O2 Flow Rate FiO2 04/02/25 12:56 97.5 87 20 118/66 (83) 92 97.5 04/02/25 08:10 Nasal Cannula* 2 28 Total Intake and Output 04/01/25 04/01/25 04/02/25 14:59 22:59 06:59 Intake Total 50 ml 750 ml 500 ml Output Total 10 ml Balance 50 ml 740 ml 500 ml medications Current Medications Medications Dose Ordered Sig/Wendy Route Start Time Stop Time Status Last Admin Dose Admin Acetaminophen 650 mg Q6HP PRN PO 03/27/25 21:30 03/30/25 08:52 650 MG Acetaminophen/ Hydrocodone Bitart 1 tab Q4HP PRN PO 03/27/25 21:30 Enoxaparin Sodium 40 mg DAILY SC 03/28/25 10:00 04/01/25 10:07 40 MG Pregabalin 75 mg BID PO 03/27/25 22:00 04/02/25 09:23 75 MG Furosemide 20 mg BIDD IV 03/28/25 12:00 04/02/25 05:52 20 MG Dextrose/Sodium Chloride 1,000 ml @ 100 mls/hr Q10H IV 03/31/25 10:45 04/01/25 16:56 100 MLS/HR Ondansetron HCl 4 mg Q4HP PRN IV 03/31/25 10:45 Acetaminophen 650 mg Q6HP PRN PO 03/31/25 10:45 04/01/25 20:22 650 MG Acetaminophen/ Hydrocodone Bitart 1 tab Q6HP PRN PO 03/31/25 10:45 Morphine Sulfate 1 mg Q4HP PRN IV 03/31/25 10:45 Cyclobenzaprine HCl 10 mg TID PO 03/31/25 14:00 04/02/25 05:51 10 MG Docusate Sodium 100 mg BID PO 03/31/25 22:00 04/02/25 09:23 100 MG Nitroglycerin 0.4 mg Q5MINP PRN SL 03/31/25 10:45 Morphine Sulfate 2 mg Q30M PRN IV 03/31/25 10:45 objective GENERAL: Alert and oriented x 3. No acute distress. EYES: PERRL, EOMI. Anicteric. HENT: Moist mucous membranes. LUNGS: Clear to auscultation bilaterally. CARDIOVASCULAR: Regular rate and rhythm. ABDOMEN: Soft, non-tender and non-distended. EXTREMITIES: BLE edema, non-pitting. NEUROLOGIC: No focal neurological deficits. SKIN: Warm, dry. laboratory and microbiology Laboratory Tests 04/01/25 04:36 Test 04/01/25 04:36 Range/Units Serum Glucose 94 74-106 mg/dL Problem List Preprocedural cardiovascular examination. [id number] cervical spinal stenosis. History of transverse myelitis. Hypokalemia. Borderline dyslipidemia, newly diagnosed. Assessment/Plan Continued all current supportive medical care. Nitro SL. Diuretics with Lasix. IV antibiotics as ordered. Morphine and [place] for pain management. Additional plan as per the hospital course. Dietary Evaluation Review Comments: 1) Add cardiac restriction to diet 2) Encourage optimal PO intake 3) Educate patient on the benefit of physical therapy 4) Follow-up with orthopedic surgeon, cardiology, and neurology 5) Continue to monitor I&O, labs, and skin integrity Expected Outcomes/Goals: 1) appetite and labs to improve 2) f/u in 3-5 days Plan discussed with: Patient SHELBY ARAGON MD Apr 02, 2025 14:36
[2025-04-03] VITALS (8 sets, daily range): BP systolic 104–112; BP diastolic 61–70; PULSE 94–107; RESP 17–19; TEMP 96.8–98.2; O2SAT 93–98
--- NOTE | 2025-04-03 15:02 | DVHPN2 ---
Progress Note - Surgical Date Seen: Apr 03, 2025 Post op day Post op day: 3 Subjective Patient reports: No new complaints, Feels better Review of Systems: HEENT:Normal, CVS:Normal, RESPIRATORY:Normal, GI:Normal, :Normal, MSK:Normal, NEURO:Normal (improving symptoms) Objective Vital signs Vital Sign Date Time Temp Pulse Resp B/P (MAP) Pulse Ox O2 Delivery O2 Flow Rate FiO2 04/03/25 12:22 97.6 99 18 112/63 (79) 95 97.6 04/03/25 07:30 Room Air* 0 21 Total Intake and Output 04/02/25 04/02/25 04/03/25 15:00 23:00 07:00 Intake Total 400 ml Output Total 900 ml Balance -500 ml Medications Current Medications Medications Dose Ordered Sig/Wendy Route Start Time Stop Time Status Last Admin Dose Admin Acetaminophen 650 mg Q6HP PRN PO 03/27/25 21:30 03/30/25 08:52 650 MG Acetaminophen/ Hydrocodone Bitart 1 tab Q4HP PRN PO 03/27/25 21:30 Enoxaparin Sodium 40 mg DAILY SC 03/28/25 10:00 04/03/25 08:52 40 MG Pregabalin 75 mg BID PO 03/27/25 22:00 04/03/25 08:51 75 MG Furosemide 20 mg BIDD IV 03/28/25 12:00 04/03/25 05:57 20 MG Dextrose/Sodium Chloride 1,000 ml @ 100 mls/hr Q10H IV 03/31/25 10:45 04/02/25 12:45 100 MLS/HR Ondansetron HCl 4 mg Q4HP PRN IV 03/31/25 10:45 Acetaminophen 650 mg Q6HP PRN PO 03/31/25 10:45 04/01/25 20:22 650 MG Acetaminophen/ Hydrocodone Bitart 1 tab Q6HP PRN PO 03/31/25 10:45 Morphine Sulfate 1 mg Q4HP PRN IV 03/31/25 10:45 Cyclobenzaprine HCl 10 mg TID PO 03/31/25 14:00 04/03/25 13:37 10 MG Docusate Sodium 100 mg BID PO 03/31/25 22:00 04/03/25 08:51 100 MG Nitroglycerin 0.4 mg Q5MINP PRN SL 03/31/25 10:45 Morphine Sulfate 2 mg Q30M PRN IV 03/31/25 10:45 Laboratory Laboratory Tests 04/01/25 04:36 Test 04/01/25 04:36 Range/Units Serum Glucose 94 74-106 mg/dL Examination: GENERAL:Normal, HEENT:Normal, NECK:Normal, LUNGS:Normal, CVS:Normal, ABDOMEN:Normal, MSK:Normal (improved mobility still would benefit from PT), SKIN:Normal (well approximated skin edges rebeca intact), NEURO:Normal (improving symptoms), :Normal Problem List/Assessment/Plan Problems: (1) Acute post-operative pain (2) Muscle spasms of neck Assessment and Plan Drain removed today patient is progressing well- she is clear to discharge/transfer She will benefit from further skilled PT reconditioning nursing can change dressing PRN Patient will need to see Dr Lee in two weeks for post op appointment No blood thinners for two weeks post op Call [phone] for a appointment, [address] [place] [address], [place] [id number] Call with jennifer Edmondson [facility] Orthopaedic Spine Surgery nurse practitioner For Dr Dilcia Lee Patient was examined, chart reviewed, labs evaluated, and diagnostic studies and findings analyzed. Case was discussed with Dr. Uriel Lee who formulated the plan of care. This medical document was created using an electronic medical record system with [employer] dictation system. Although this document has been carefully reviewed, there might still be some phonetic and typographical errors. These areas are purely typographical due to imperfections of the software programs, and do not reflect any compromise in the patient's medical care. Plan discussed with Plan discussed with: Patient, Other (admitting team) Visit Coding Surgery Date of Service if different f: Mar 31, 2025 Billing Provider: JOHN EDMONDSON NP Surgery Visit Codes: NOT BILLABLE JOHN EDMONDSON NP Apr 03, 2025 15:02
[2025-04-03] MEDS ORDERED: CYCL-611 PO (17:17)
--- NOTE | 2025-04-03 17:29 | DVHDSRES ---
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 Labs/Diagnostic Data: Laboratory Results Test 04/01/25 04:36 03/31/25 05:02 03/30/25 05:44 03/28/25 11:00 White Blood Count 2.8 10^3/uL (4.4-10.8) Red Blood Count 3.85 10^6/uL (4.0-5.20) Hemoglobin 11.7 g/dL (12.2-16.2) Hematocrit 35.5 % (36.0-46.0) Mean Corpuscular Volume 92.2 fL (80.0-100.0) Mean Corpuscular Hemoglobin 30.3 pg (28.0-32.0) Mean Corpuscular Hemoglobin Concent 32.9 g/dL (32.0-36.0) Red Cell Distribution Width 15.2 % (11.8-14.3) Platelet Count 220 10^3/uL (140-450) Mean Platelet Volume 8.3 fL (6.9-10.8) Neutrophils (%) (Auto) % (37.0-80.0) Lymphocytes (%) (Auto) % (10.0-50.0) Monocytes (%) (Auto) % (0.0-12.0) Basophils (%) (Auto) % (0.0-2.0) Neutrophils # (Auto) 10 ^3/uL (1.6-8.6) Lymphocytes # (Auto) 10 ^3/uL (0.4-5.4) Monocytes # (Auto) 10 ^3/uL (0-1.3) Differential Total Cells Counted 100.0 (100) Neutrophils % (Manual) 60 (37.0-80.0) Band Neutrophils % (Manual) 6 Lymphocytes % (Manual) 28 (10.0-50.0) Monocytes % (Manual) 6 (0-12) Eosinophils % (Manual) 0 (0-7) Basophils % (Manual) 0 (0.0-2.0) Metamyelocytes % (manual) 0 Myelocytes % (Manual) 0 Promyelocytes % (Manual) 0 Blast Cells % (Manual) 0 Reactive Lymphocytes 0 Platelet Estimate Adequate Sodium Level 141 mmol/L (136-145) Potassium Level 4.3 mmol/L (3.5-5.1) Chloride Level 105 mmol/L (98-107) Carbon Dioxide Level 27 mmol/L (20-31) Anion Gap 9 (5-15) Blood Urea Nitrogen 7 mg/dL (9-23) Creatinine 0.57 mg/dL (0.550-1.02) Glomerular Filtration Rate Calc 91 mL/min (>90) BUN/Creatinine Ratio 12.3 (10.0-20.0) Serum Glucose 94 mg/dL (74-106) Calcium Level 9.4 mg/dL (8.7-10.4) Magnesium Level 2.2 mg/dL (1.6-2.6) Eosinophils (%) (Auto) 14.9 % (0.0-7.0) Eosinophils # (Auto) 0.4 10 ^3/uL (0-0.8) Basophils # (Auto) 0 10 ^3/uL (0-0.2) Nucleated Red Blood Cells 0.1 % Prothrombin Time 12.2 sec (9.3-11.8) Prothrombin Time INR 1.17 (0.9-1.15) Activated Partial Thromboplast Time 30.5 SEC (24.5-34.5) Test 03/28/25 09:00 03/28/25 05:38 03/27/25 17:25 Urine Color Light-yellow (Yellow) Urine Clarity Turbid (Clear) Urine pH 7.0 (5.0-9.0) Urine Specific [place] 1.015 (1.001-1.035) Urine Protein Negative (Negative) Urine Ketones Negative (Negative) Urine Blood Negative /uL (Negative) Urine Nitrite Negative (Negative) Urine Bilirubin Negative (Negative) Urine Urobilinogen Normal mg/dL (Negative) Urine Leukocyte Esterase Negative /uL (Negative) Urine RBC 2 /hpf (0 - 4) Urine Microscopic WBC 3 /HPF (0-5) Urine Squamous Epithelial Cells Few /hpf (<5) Urine Amorphous Crystals Few /hpf (None Seen) Urine Bacteria Few /hpf (None Seen) Urine Mucus Few (None Seen) Urine Glucose Normal mg/dL (Normal) Urine Opiates Screen Neg (NEGATIVE) Urine Fentanyl Screen Neg (NEGATIVE) Urine Barbiturates Screen Neg (NEGATIVE) Urine Phencyclidine Screen Neg (NEGATIVE) Urine Amphetamines Screen Neg (NEGATIVE) Urine Benzodiazepines Screen Neg (NEGATIVE) Urine Cocaine Screen Neg (NEGATIVE) Urine Cannabinoids Screen Neg (NEGATIVE) Erythrocyte Sedimentation Rate 8 mm/hr (0-20) Total Bilirubin 0.5 mg/dL (0.2-1.0) Aspartate Amino Transferase (AST) 12 U/L (13-40) Alanine Aminotransferase (ALT) 11 U/L (7-40) Alkaline Phosphatase 69 U/L (46-116) C-Reactive Protein High Sensitivity 0.06 mg/dL (<1.0) B-Type Natriuretic Peptide 25.75 pg/mL (0-100) Total Protein 5.4 g/dL (5.7-8.2) Albumin 3.8 g/dL (3.2-4.8) Hemoglobin A1c 4.8 % A1C (<5.7) Triglycerides Level 100 mg/dL (< 150) Cholesterol Level 187 mg/dL (< 200) LDL Cholesterol 107 mg/dL (< 100) HDL Cholesterol 60 mg/dL (40-59) Other Laboratory Tests 04/01/25 04:36 Brief Hx & Hospital Course: This is an 79-year-old female with past medical history of transverse myelitis, severe cervical spine stenosis and severe thoracic spine stenosis. The patient presented to the ED with chief complaint of severe numbness/tingling and stiffness of bilateral hands and mild symptoms on bilateral upper extremities as well. The patient also reported left lower extremity numbness that starts in the lateral left hip and radiates all the way down to the left foot causing numbness and tingling sensation as well. The patient reports that recently she has not been able to grab things with her hands due to numbness and stiffness sensation on bilateral hands and has been very difficult even to eat by her own. The patient was recently admitted to the [facility] on December of 2024 and both cervical and thoracic spine MRI were performed at that time showing multiple levels of bulging disc and nerve impingement in both cervical and thoracic areas. Patient does report that she has an upcoming appointment with Dr. Lee on April 14, 2025. The patient states that symptoms has been getting worse and that is the reason why she will like to get assessed and evaluated once again. Patient denies fever/chills, focal weakness or any neurologic deficits at this time aside from just numbness and tingling sensations. We will consult Dr. Lee (spine surgeon) for further assessment and management. We will admit the patient and do a trial of pregabalin with other pain medications while patient gets assessed by specialist. 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 patient was started on pregabalin 75 mg b.i.d., [place], Tylenol so pain medication. Spinal surgeon was consulted, and spinal surgery done with cervical 4, 5, 6 foraminotomies and facetectomies. patient had trouble swallowing post surgery but at discharge was able to swallow and with PT was able to walk to the door and back. ardiology was consulted for cardiac clearance. Monitored symptoms for any progression of weakness. patient has swelling has decreased and the is no redness seen at surgical site. the drain was removed and patient tolerated well. Patient is swallowing better and has minimal pain when swallowing. Patient had hypokalemia which was repleted with potassium. patient was on DVT prophylaxis with Lovenox 40 mg. Vascular surgeon recommended to see Dr Lee in two weeks for post op appointment and No blood thinners for two weeks post op. patient stable for discharge to SNF with physical therapy. Patient communicated understanding of her discharge plan and agreed. General: Patient alert and oriented in person, place and time. Patient following commands. HEENT: Normocephalic, atraumatic, moist mucous membranes, Respiratory/pulmonary: Clear lungs bilaterally, vesicular murmurs present in almost all lung vargas, no associated crackles or wheezes. Cardiovascular: Normal heart sounds S1 and S2 with no associated murmurs Abdomen: Abdomen nondistended, there is no pain to palpation in any of the abdominal quadrants, no palpable masses. Extremities:Patient reports tingling/numbness sensation on bilateral hands and left lower extremity radiating to the left foot Peripheral Pulses: 3+ Radial (R). 3+ Radial (L). 3+ Dorsalis pedis (R). 3+ Dorsalis pedis(L) Skin: No rashes or pruritus, there is no sacral edema present at this time. Neurological: Intact cranial nerves with no focal neurologic deficits Discharge instructions: follow up with Orthopedics outpatient in 2 weeks for removal of suture and further managment follow up with D/C clinic, PCP, Follow up with PT take flexiril 10mg thirce times daily dressing removal in 2-3 days no need of sutures at this time wound will heal on itself from inside to outside Operations or Procedures Pre Op Diagnosis: 1. Cervical Degenerative Disk Disease and Severe Spinal Stenosis Causing myelopathy and progressive neurologic deficit Post Op Diagnosis: 1. Cervical Degenerative Disk Disease and Spinal Stenosis Causing myelopathy and progressive neurologic deficit Procedure: Cervical 3 to 4 anterior cervical discectomy with Cervical 3-4 foraminotomies and facetectomies to decompression the spinal canal and Cervical 4 nerve roots Cervical 4 to 5 anterior cervical discectomy with Cervical 4-5 foraminotomies and facetectomies to decompression the spinal canal and Cervical 5 nerve roots Cervical 5 to 6 anterior cervical discectomy with Cervical 5-6 foraminotomies and facetectomies to decompression the spinal canal and Cervical 6 nerve roots Cervical 3-6 anterior cervical Fusion Cervical 3-6 anterior cervical instrumentation with freestanding cages Cervical 3-4 placement of allograft prosthetic device Cervical 4-5 placement of allograft prosthetic device Cervical 5-6 placement of allograft prosthetic device Surgeon: Uriel Lee MD Anesthesia: General Assist: Hayley Edmondson DIRECTOR LEARNING AND DEVELOPMENT Fluids and EBL: see anesthesia note Procedure Note: The patient was seen in the Pre-anesthesia Care Unit and the site of the incision was initialed by me with a felt tipped marker. All questions by the patient were answered to the satisfaction of the patient and the chart was reviewed. The patient was taken to the operating room and placed supine on the [employer] [facility] Flat top table. General anesthesia was induced. Neuromonitoring leads were placed. A rolled towel was placed between the shoulder blades to hyperextend out the chest which will allow better exposure of the cervical spine. Halter traction to 10 pounds was placed. The arms were padded and adducted to the patients side making sure all pulses in the hands were present. Tape traction was undertaken on the shoulders to give us better radiographic exposure of the distal cervical spine. A gel-pad was placed under the occiput and 5 degrees of extension was placed on the neck without adverse effects to the patient. The anterior neck was prepped and draped. Pre-operative antibiotics were given 30 minutes prior to the start of the procedure. A c-arm fluoroscope was used to lemuel out the incision site. At this time, a time out was taken per usual protocol. A longitudinal incision was chosed due the mulitple number of levels being operated on. the incision was made from the hyoid bone to the cricoid process on the left side jsut anterior to the sternocleidomastoid muscle. Next an incision was made through the skin with a 15 blade scalpel through the subcutaneous tissue down to the platysma. Self-retainers were placed. The platysma was incised along the longitudinal border with a Metzenbaum scissors. Blunt dissection was made through the deep cervical and pre-tracheal fascia taking care to protect the carotid sheath laterally and the Trachea/esophagus medially. The dissection was carried down to the prevertebral fascia. Any crossing vessels were ligated using a vascular clip or coagulated with a bovie. An esophageal retractor was next used to retract the trachea/esophagus and a bent [address] through the anterior annulus of the cervical disk and a lateral C-arm fluoroscopic image was taken to confirm that we were at the correct level. Next, bovie electrocautery was used to expose the bones of cervical 3,4,5,6 and bipolar electrocuatery was used to lift up the Longus colli and capitus muscles. Self Retainers were used to retract the longus colli and capitus muscles bilaterally as well as the trachea/esophagus to the right and the carotid sheath to the left. Smooth thin Black-Belt retractors were placed proximally and distally and a needle was placed again in the anterior annulus of the disk and an image taken to confirm the correct level. At this point, the microscope was wheeled in and an 11 blade scalpel incised the anterior annulus of the cervical 3/4 and 4/5 and 5/6 disks. Next, straight and curved curettes removed the remainder of the disks all the way down to the posterior longitudinal ligament. Carefully, a Kerison number one rongeur incised the posterior longitudinal ligament at the lateral end of the above disks and using a micro, blunt tip nerve hook to separate the posterior longitudinal ligament from the dura, alternating 1 mm and 2 mm Kerison rongeurs removed the posterior longitudinal ligament. Next, Kerison 1mm and 2 mm rongeurs were alternated to get under the uncinate processes and undercut them to perform foraminotomies and facetectomies at the cervical 3/4 and 4/5 and 5/6 levels to decompress the central canal and cervical 4,5 and 6 nerve roots. Next the microscope was wheeled away and the c-arm fluoroscope was wheeled into the field and a lateral image was obtained. Increasing size graft trials were used starting at a 5 mm thick size until the proper tension in the disk space and height worship obtained. We then placed final free standing cages at C3/4 and 4/5 and 5/6. 6mm at C3/4 and 7mm at C4/5 and C5/6. Satisfactory placement was confirmed in the AP and lateral views using a C-arm fluoroscope. The screws were placed bi cortical to make sure good purchase was achieved due the patient's weak bone. Copious irrigation of the wound with sterile saline and all bleeding was controlled before closure initiated. At this point, a 10 [place] [address] Drain was place deep to the Platysma muscle and the Platysma was approximated with one interrupted 0-Vicryl suture. The subcutaneous tissue was closed with interrupted 2-0 vicryl sutures and the skin was closed with rebeca. Sterile dressings were placed and a cervical collar placed, the patient extubated, transferred to the stretcher and taken to the Recovery Room in unremarkable condition. - -- ORDERING PHYSICIAN: BHARAT NELSON RESIDENT PROCEDURE(s): CXR1 - CHEST XRAY 1 VIEW REASON: congestion ORDER NUMBER(s): [id number], ACCESSION NUMBER(s): [id number] CHEST RADIOGRAPH Indication: congestion Technique: Single frontal view of the chest was obtained Comparison: XY CHEST PORTABLE on DOS: 01/06/25 FINDINGS: Lines and Tubes: None Lungs: No focal consolidation. Pleura: No effusion. No pneumothorax. Cardiomediastinal contours: Unremarkable Bones: No acute osseous abnormality. IMPRESSION: Mild pulmonary edema. DICTATED BY: CHOLO BARRON MD DICTATED DATE/TIME: 03/28/25 1247 SIGNED BY: CHOLO BARRON MD SIGNED DATE/TIME: 03/28/25 1247 ORDERING PHYSICIAN: URIEL LEE MD PROCEDURE(s): CERV2 - CERVICAL SPINE 3V REASON: C3-C5 DISCECTOMY AND FUSION ORDER NUMBER(s): [id number], ACCESSION NUMBER(s): [id number] FLUOROSCOPY TIME: 9 seconds TECHNIQUE: Intraoperative radiographs of the cervical spine were obtained. COMPARISON: XY CHEST XRAY 1 VIEW on DOS: 03/28/25, XY CHEST PORTABLE on DOS: 01/06/25 FINDINGS: Refer to intraoperative report for further evaluation. IMPRESSION: Refer to intraoperative report for further evaluation. DICTATED BY: VICKY ARAGON MD DICTATED DATE/TIME: 03/31/25 1342 ORDERING PHYSICIAN: URIEL LEE MD PROCEDURE(s): CARM1 - C ARM FLUOROSCOPY UP TO 60MIN REASON: C3-C5 DISCECTOMY AND FUSION ORDER NUMBER(s): [id number], ACCESSION NUMBER(s): [id number] FLUOROSCOPY TIME: 9 seconds TECHNIQUE: Intraoperative radiographs of the cervical spine were obtained. COMPARISON: XY CHEST XRAY 1 VIEW on DOS: 03/28/25, XY CHEST PORTABLE on DOS: 01/06/25 FINDINGS: Refer to intraoperative report for further evaluation. IMPRESSION: Refer to intraoperative report for further evaluation. 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 associated with mod/severe canal stenosis #Acute neuropathic pain likely due to above # chronic leukopenia # hypokalemia #History of transverse myelitis Discharge Disposition: Snf Facility Discharge Instruct/Medications Diet: Cardiac 2g Na,low cholest Diet comment: MECHANICAL SOFT Activity: Light activity Follow Up/Referral: Follow up with PT follow up with Orthopedics outpatient in 2 weeks for removal of suture and further managment follow up with D/C clinic, PCP, Medications: take flexiril 10mg thirce times daily Scheduled Cyclobenzaprine HCl (Cyclobenzaprine Hydrochlo), 10 MG PO TID Gabapentin (Gabapentin), 1 CAP PO TID Discharge Statement: "Patient was advised to return to the ER or call 911 if any headaches, dizziness, shortness of breath, chest pain, abdominal pain, bleeding, fevers, or worsening of medical condition. Patient was counseled about treatment plan, medications, possible side effects, patientverbalized understanding. All questions were answered to the best of my ability. 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
--- NOTE | 2025-04-03 23:23 | DVHPN2 ---
Progress Note - Dictate Date Seen: Apr 03, 2025 Has the PT tested + for MRSA If YES, has PT been informed?: No Medical Necessity Reason Pt with a Central, PICC or Fol: No Subjective Patient was seen and evaluated in follow up. Patient has no new complaints at this time. Patient denies any cardiac symptoms. Patient is cardiac stable for discharge. Telemetry reviewed. vital signs Vital Sign Date Time Temp Pulse Resp B/P (MAP) Pulse Ox O2 Delivery O2 Flow Rate FiO2 04/03/25 17:38 112/65 04/03/25 16:42 96.8 107 18 93 96.8 04/03/25 07:30 Room Air* 0 21 Total Intake and Output 04/02/25 04/02/25 04/03/25 15:00 23:00 07:00 Intake Total 400 ml Output Total 900 ml Balance -500 ml objective GENERAL: Alert and oriented x 3. No acute distress. EYES: PERRL, EOMI. Anicteric. HENT: Moist mucous membranes. LUNGS: Clear to auscultation bilaterally. CARDIOVASCULAR: Regular rate and rhythm. ABDOMEN: Soft, non-tender and non-distended. EXTREMITIES: BLE edema, non-pitting. NEUROLOGIC: No focal neurological deficits. SKIN: Warm, dry. laboratory and microbiology Laboratory Tests 04/01/25 04:36 Test 04/01/25 04:36 Range/Units Serum Glucose 94 74-106 mg/dL Problem List Preprocedural cardiovascular examination. [id number] cervical spinal stenosis. History of transverse myelitis. Hypokalemia. Borderline dyslipidemia, newly diagnosed. Assessment/Plan Continued all current supportive medical care. Nitro SL. Diuretics with Lasix. IV antibiotics as ordered. Morphine and Delong for pain management. Additional plan as per the hospital course. Dietary Evaluation Review Comments: 1) Add cardiac restriction to diet 2) Encourage optimal PO intake 3) Educate patient on the benefit of physical therapy 4) Follow-up with orthopedic surgeon, cardiology, and neurology 5) Continue to monitor I&O, labs, and skin integrity Expected Outcomes/Goals: 1) appetite and labs to improve 2) f/u in 3-5 days Plan discussed with: Patient SHELBY ARAGON MD Apr 03, 2025 23:23
== END 2025-04-03 19:33 | DRG 472 ==
LOC: ER 14:58 → OVERFLOW 21:19 → WEST WING 21:28 → OVERFLOW 03-31 10:31 → TELE-WESTW 03-31 11:15
PROVIDERS: ADMIT Student in an Organized Health Care Education/Training Program; ATTEND Student in an Organized Health Care Education/Training Program
PROC: 01N10ZZ Release Cervical Nerve, Open Approach (ICD-10-PCS; 2025-03-31)
PROC: 00NW0ZZ Release Cervical Spinal Cord, Open Approach (ICD-10-PCS; 2025-03-31)
PROC: 0RB30ZZ Excision of Cervical Vertebral Disc, Open Approach (ICD-10-PCS; 2025-03-31)
PROC: 4A11X4G Monitoring of Peripheral Nervous Electrical Activity, Intraoperative, External Approach (ICD-10-PCS; 2025-03-31)
PROC: 0RG20A0 Fusion of 2 or more Cervical Vertebral Joints with Interbody Fusion Device, Anterior Approach, Anterior Column, Open Approach (ICD-10-PCS; principal; 2025-03-31 08:05)
DX: M48.02 Spinal stenosis, cervical region (principal); G37.3 Acute transverse myelitis in demyelinating disease of central nervous system; M50.022 Cervical disc disorder at C5-C6 level with myelopathy; E78.5 Hyperlipidemia, unspecified; E87.6 Hypokalemia; D72.819 Decreased white blood cell count, unspecified; M48.04 Spinal stenosis, thoracic region; M51.24 Other intervertebral disc displacement, thoracic region; Z79.899 Other long term (current) drug therapy; M50.13 Cervical disc disorder with radiculopathy, cervicothoracic region
CPT/HCPCS: 36415; 71045; 72040; 76000; 80048; 80053; 80061; 80307; 81001; 83036; 83735; 83880; 85007; 85025; 85027; 85610; 85652; 85730; 86141; 86850; 86900; 86901; 92610; 93005; 96360; 97110; 97116; 97163; G0378; J1100; J1956; J2250; J2405; J2704; J3480; J7042